=== PATIENT | female | born 1950 | race American Indian/Alaskan Native ===

== ENCOUNTER 2017-02-02 18:19 | Emergency (ER) | payer MEDICARE ==
[2017-02-02] MEDS ORDERED: TYLENOL PO ONE (23:34)
--- NOTE | 2017-02-02 23:41 | Emergency Department Report ---
ED Lower Extremity HPI - General Chief Complaint: Extremity Injury, Lower Stated Complaint: FOOT BROKEN Time Seen by Provider: 02/02/17 23:34 Source: patient Mode of arrival: Ambulatory Limitations: No Limitations - History of Present Illness Initial Comments: This is a 66-year-old female nontoxic, well nourished in appearance, no acute signs of distress presents to the ED with c/o of foot and ankle pain x2 days. Patient stated she was diagnosed with foot/ankle fracture by orthopedic and has been with a post op ortho shoe and rahat wrap to the region. Patient denies getting a cast or splint. Patient stated that orthopedic doctor stated fracture is healing 90%. Patient stated has been talking a lot for the holidays and now developed pain and swelling to the region. Patient denies any trauma. Denies any calf pain or tenderness. Denies any joint redness. Patient denies any numbness, tingling, fever, chills, nausea, vomiting, chest pain and shortness breath. Patient denies joint redness. He stated there is right foot swelling. Denies abnormal sensation. Denies decreased range of motion. She has pain while walking. Patient stated allergies to lisinopril. PMH includes arthritis, DM, and HTN. MD Complaint: ankle injury, foot injury -: days(s) (2) Injury: Ankle: Left, Foot: Left Place: home Severity: mild Severity scale (0 -10): 8 Improves With: nothing Worsens With: nothing Context: walking Associated Symptoms: swelling, able to partially bear weight, ambulatory. denies: snap/pop sensation, numbness, tingling, unable to bear weight - Related Data Previous Rx's Medication Instructions Recorded Last Taken Type Acetaminophen [Tylenol Arthritis] 650 mg PO Q8H PRN #30 tablet.er 02/02/17 Unknown Rx Allergies Allergy/AdvReac Type Severity Reaction Status Date / Time lisinopril Allergy Shortness Verified 02/02/17 18:33 of Breath ED Review of Systems ROS: Stated complaint: FOOT BROKEN Other details as noted in HPI Constitutional: denies: chills, fever Eyes: denies: eye pain, eye discharge, vision change ENT: denies: ear pain, throat pain Respiratory: denies: cough, shortness of breath, wheezing Cardiovascular: denies: chest pain, palpitations Endocrine: no symptoms reported Gastrointestinal: denies: abdominal pain, nausea, diarrhea Genitourinary: denies: urgency, dysuria, discharge Musculoskeletal: denies: back pain, joint swelling, arthralgia Skin: denies: rash, lesions Neurological: denies: headache, weakness, paresthesias Psychiatric: denies: anxiety, depression Hematological/Lymphatic: denies: easy bleeding, easy bruising ED Past Medical Hx - Past Medical History Previous Medical History?: Yes Hx Hypertension: Yes Hx Diabetes: Yes Hx Arthritis: Yes Additional medical history: Irregular HR - Surgical History Past Surgical History?: No - Social History Smoking Status: Never Smoker Substance Use Type: Prescribed - Medications Home Medications: Home Medications Medication Instructions Recorded Confirmed Last Taken Type Acetaminophen [Tylenol Arthritis] 650 mg PO Q8H PRN #30 tablet.er 02/02/17 Unknown Rx ED Physical Exam - General Limitations: No Limitations General appearance: alert, in no apparent distress - Head Head exam: Present: atraumatic, normocephalic, normal inspection - Eye Eye exam: Present: normal appearance, PERRL, EOMI. Absent: scleral icterus, conjunctival injection, nystagmus, periorbital swelling, periorbital tenderness Pupils: Present: normal accommodation - ENT ENT exam: Present: normal exam, normal orophraynx, mucous membranes moist, TM's normal bilaterally, normal external ear exam - Neck Neck exam: Present: normal inspection, full ROM. Absent: tenderness, meningismus, lymphadenopathy, thyromegaly - Respiratory Respiratory exam: Present: normal lung sounds bilaterally. Absent: respiratory distress, wheezes, rales, rhonchi, stridor, chest wall tenderness, accessory muscle use, decreased breath sounds, prolonged expiratory - Cardiovascular Cardiovascular Exam: Present: regular rate, normal rhythm, normal heart sounds. Absent: bradycardia, tachycardia, irregular rhythm, systolic murmur, diastolic murmur, rubs, gallop - GI/Abdominal GI/Abdominal exam: Present: soft, normal bowel sounds. Absent: distended, tenderness, guarding, rebound, rigid, diminished bowel sounds - Rectal Rectal exam: Present: deferred - Extremities Exam Extremities exam: Present: normal inspection, full ROM, tenderness, normal capillary refill. Absent: pedal edema, joint swelling, calf tenderness - Expanded Lower Extremity Exam Left Hip exam: Present: normal inspection, full ROM Upper Leg exam: Present: normal inspection, full ROM Knee exam: Present: normal inspection, full ROM Lower Leg exam: Present: normal inspection, full ROM. Absent: Celso's sign Ankle exam: Present: normal inspection, full ROM, tenderness, swelling. Absent : abrasion, laceration, ecchymosis, deformity, crepidus, dislocation, erythema, anterior draw sign Foot/Toe exam: Present: normal inspection, full ROM, tenderness, swelling. Absent: abrasion, laceration, ecchymosis, deformity, crepidus, dislocation, erythema, amputation, puncture wound, foreign body, calcaneal tenderness, tenderness at base of 5th metatarsal, nail avulsion, subungual hematoma Neuro vascular tendon exam: Present: no vascular compromise. Absent: pulse deficit, abnormal cap refill, motor deficit, sensory deficit, tendon deficit, extremity cold to touch, pallor, abnormal 2-point discrimination, decreased fine /light touch, foot drop, peroneal nerve deficit, significant pain with passive ROM of distal joint Gait: Positive: observed and limited by pain - Back Exam Back exam: Present: normal inspection, full ROM. Absent: tenderness, CVA tenderness (R), CVA tenderness (L), muscle spasm, paraspinal tenderness, vertebral tenderness, rash noted - Neurological Exam Neurological exam: Present: alert, oriented X3, CN II-XII intact, normal gait, reflexes normal - Psychiatric Psychiatric exam: Present: normal affect, normal mood - Skin Skin exam: Present: warm, dry, intact, normal color. Absent: rash ED Course Vital Signs 02/02/17 18:25 Temperature 97.6 F Pulse Rate 62 Respiratory 18 Rate Blood Pressure 129/86 O2 Sat by Pulse 96 Oximetry - Reevaluation(s) Reevaluation #1: 02/02/17 23:48 Patient is speaking in full sentences with no signs of distress noted. Reevaluation #2: 02/03/17 02:30 Post-splint assessment; there is neurovascular intact with normal capillary refill less than 2 seconds. Patient has normal sensation and is able to move toes. ED Lower Extremity MDM - Medical Decision Making This is a 59-year-old male that presents with left old 5th metatarsal fracture. He is stable and was examined by me. Patient received Motrin in the ED for pain. X-ray has been obtained and per the radiologist with healing fifth metatarsal fracture of the left ankle/foot but there is swelling. Patient notified of x-ray results were noted by the patient. Posterior left foot sprain and has been performed. Patient was instructed not to bear weight. Patient does have a walker. Post-splint assessment; there is neurovascular intact with normal capillary refill less than 2 seconds. Patient has normal sensation and is able to move toes. Patient received ice the extremity. Patient instructed to rice therapy. Patient be treated with Tylenol. Patient was instructed to rice therapy. Patient currently has a walker. Patient was instructed Follow-up with a orthopedic doctor in 3-5 days or if symptoms worsen and continue return to emergency room as soon as possible. At time time of discharge, the patient does not seem toxic or ill in appearance. No acute signs of distress noted. Patient agrees to discharge treatment plan of care. No further questions noted by the patient. Critical care attestation.: If time is entered above; I have spent that time in minutes in the direct care of this critically ill patient, excluding procedure time. ED Disposition Clinical Impression: Fracture of 5th metatarsal Qualifiers: Encounter type: initial encounter Fracture type: closed Fracture alignment: nondisplaced Laterality: left Qualified Code(s): S92.355A - Nondisplaced fracture of fifth metatarsal bone, left foot, initial encounter for closed fracture Disposition: DC-01 TO HOME OR SELFCARE Is pt being admited?: No Does the pt Need Aspirin: No Condition: Stable Instructions: Splint Care (ED), RICE Therapy (ED) Additional Instructions: Follow-up with a orthopedic doctor in 3-5 days or if symptoms worsen and continue return to emergency room as soon as possible. Rest, elevate, and ice extremity Prescriptions: Acetaminophen [Tylenol Arthritis] 650 mg PO Q8H PRN #30 tablet.er PRN Reason: Pain Referrals: ETHAN AGEE [Other] - 3-5 Days KRISTIAN ANDERSON MD [Staff Physician] - 3-5 Days [facility] [Outside] - 3-5 Days [facility] [Outside] - 3-5 Days Forms: Work/School Release Form(ED)
--- NOTE | 2017-02-03 01:30 | XRay Report ---
FINAL REPORT PROCEDURE: XR ANKLE 3+V LT TECHNIQUE: LEFT ankle radiographs, AP, lateral, and oblique views. CPT 23624 HISTORY: ankle pain COMPARISON: No prior studies are available for comparison. FINDINGS: Fracture (s) and/or Dislocation(s): There is a healing fracture of the 5th metatarsal bone.. Alignment: Normal. Joint space(s): Normal. Soft tissues: Normal. Bone mineralization: Normal. Foreign bodies: None. Calcaneal spurring: There are calcaneal spurs.. IMPRESSION: There is a healing fracture of the 5th metatarsal bone. There is no soft tissue swelling. There are calcaneal spurs..
--- NOTE | 2017-02-03 01:35 | XRay Report ---
FINAL REPORT PROCEDURE: XR FOOT 3+V LT TECHNIQUE: LEFT foot radiographs, AP, lateral, and oblique views. CPT 31752 HISTORY: foot pain COMPARISON: No prior studies are available for comparison. FINDINGS: Fracture (s) and/or Dislocation(s): There is a healing fracture of the 5th metatarsal bone.. Alignment: Normal . 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 Soft tissues: Normal . Bone mineralization: Normal . Foreign bodies: None . Calcaneal spurring: There is a small inferior calcaneal spur.. IMPRESSION: There is a healing fracture of the 5th metatarsal bone.. 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 There is a small inferior calcaneal spur.. .
[2017-02-03 03:05] VITALS: BP 142/91
== END 2017-02-03 03:06 | disposition home or self-care (01) ==
LOC: ED 18:19
DX: S92.355A Nondisplaced fracture of fifth metatarsal bone, left foot, initial encounter for closed fracture (principal); I10 Essential (primary) hypertension; E11.9 Type 2 diabetes mellitus without complications; M19.90 Unspecified osteoarthritis, unspecified site; Z88.8 Allergy status to other drugs, medicaments and biological substances; X58.XXXA Exposure to other specified factors, initial encounter; Y93.89 Activity, other specified; Y92.89 Other specified places as the place of occurrence of the external cause; Y99.8 Other external cause status

== ENCOUNTER 2018-03-06 16:23 | Inpatient (IN) | payer MEDICARE ==
--- NOTE | 2018-03-06 17:07 | Emergency Department Report ---
Chief Complaint: Dyspnea/Respdistress Stated Complaint: SOB Time Seen by Provider: 03/06/18 16:56 - HPI History of Present Illness: PT IS HAVING PROGRESSIVE SOB WENT TO PCP TODAY GOT HOME AND SHE GOT DIZZY AND MORE SOB CAME TO ER EXTENSIVE MED HX INCLUDES CHF CVA- RESIDUAL FACIAL DROP GLAUCOMA HTN HPLD GERD GOUT NEUROPATHY COUMADIN THERAPY HOME MEDS SPIRONLDACTOME ALLOPURINOL [place] EYE DROPS STATIN COLCHICINE PEPCID LASIX GABAPEN GLYBIZIDE IMDUR LOSARTAN MG K METFORMIN MONTELUKAST PROTONIX K TOPRAL D3 COUMADIN - ROS Review of Systems: SOB CP WITH ACTIVITY PROGRESSIVE - Exam Vital Signs: Vital Signs 03/06/18 16:33 Temperature 97.6 F Pulse Rate 72 Respiratory 20 Rate Blood Pressure 166/99 O2 Sat by Pulse 95 Oximetry Physical Exam: JVD NO LEG SWELLING APPRECIATED- ON LASIX 80 MG DAILY MSE screening note: Focused history and physical exam performed. Due to findings the following was ordered: 12 LEAD NAP BUT WITH AFIB CVR AND LAD DIFF THAN PREVIOUS IN SYSTEM PLAN EKG XRAY CHEST LABS TO MAIN ED FOR FURTHER EVAL GIVEN HER COMPLEX MEDICAL NEEDS ED Disposition for MSE Condition: Stable
[2018-03-06 17:43] LABS: Basophils # (Auto) 0.1 K/mm3 (0.0-0.1); Basophils % (Auto) 1.1 % (0.0-1.8); Eosinophils # (Auto) 0.1 K/mm3 (0.0-0.4); Eosinophils % (Auto) 2.4 % (0.0-4.3); Hematocrit 37.6 % (30.3-42.9); Hemoglobin 12.4 gm/dl (10.1-14.3); Lymphocytes # (Auto) 1.4 K/mm3 (1.2-5.4); Lymphocytes % (Auto) 25.4 % (13.4-35.0); Mean Corpuscular HGB Conc 33 % (30-34); Mean Corpuscular Volume 76 fl (79-97); Monocytes # (Auto) 0.6 K/mm3 (0.0-0.8); Monocytes % (Auto) 10.3 % (0.0-7.3); Platelet Count 277 K/mm3 (140-440); Red Blood Count 4.92 M/mm3 (3.65-5.03); Red Cell Distribution Width 17.9 % (13.2-15.2)
[2018-03-06 17:53] LABS: BUN/Creatinine Ratio 20; Blood Urea Nitrogen 28 mg/dL (7-17); Calcium 9.1 mg/dL (8.4-10.2); Hemolysis Index 96
[2018-03-06 17:54] LABS: INR 4.86 (0.87-1.13)
[2018-03-06 17:57] LABS: Alanine Aminotransferase 34 units/L (7-56)
[2018-03-06] MEDS ORDERED: BABY ASPIRIN PO ONE (18:07)
[2018-03-06] MEDS ORDERED: LASIX IV ONE (18:07)
[2018-03-06] MEDS ORDERED: DUONEB *Not for PRN Use IH ONE (18:07)
--- NOTE | 2018-03-06 18:20 | Emergency Department Report ---
HPI - General Chief Complaint: Dyspnea/Respdistress Time Seen by Provider: 03/06/18 16:56 - HPI HPI: 67-year-old female presents to the emergency department from her primary care physician's office, Dr. Dow, with the complaint of shor tness of breath, chest tightness, nausea, vomiting that has been going on over the past week. Patient says that she has not gotten much sleep because she will wake up with the shortness of breath. It also worsens with exertion. The chest tightness is generalized. She has a past medical history of arthritis, diabetes, hypertension, atrial fibrillation, CHF, glaucoma. The patient is on Coumadin for her atrial fibrillation. She is not oxygen dependent at home. Her heel builder machine is Dr. Jeff Addison. No recent travel or sick contacts at home. ED Past Medical Hx - Past Medical History Hx Hypertension: Yes Hx Diabetes: Yes Hx Arthritis: Yes Additional medical history: afib - Surgical History Past Surgical History?: No - Social History Smoking Status: Never Smoker Substance Use Type: None - Medications Home Medications: Home Medications Medication Instructions Recorded Confirmed Last Taken Type [place]-3/Dha/Epa/Fish Oil [Fish Oil 1,000 mg PO DAILY 08/09/17 08/09/17 08/09/17 History 1,000 mg Softgel] Warfarin [Coumadin] 5 mg PO HS 08/09/17 08/09/17 08/08/17 History glipiZIDE [Glipizide] 10 mg PO HS 08/09/17 08/09/17 08/08/17 History Alphagan P 0.1% 1 drop OU BID 08/10/17 08/10/17 08/09/17 History AtorvaSTATin 40 mg PO DAILY 08/10/17 08/10/17 08/09/17 History Carvedilol [Coreg] 6.25 mg PO BID 08/10/17 08/10/17 08/09/17 History Famotidine 20 mg PO DAILY 08/10/17 08/10/17 08/09/17 History Glipizide 10 mg PO DAILY 08/10/17 08/10/17 08/09/17 History Isosorbide Mononitrate 30 mg PO DAILY 08/10/17 08/10/17 08/09/17 History Latanoprost 0.005% 1 drops OU HS 08/10/17 08/10/17 08/09/17 History Magnesium Oxide 400 mg PO DAILY 08/10/17 08/10/17 08/09/17 History Montelukast 10 mg PO DAILY 08/10/17 08/10/17 08/09/17 History AtorvaSTATin [Lipitor] 40 mg PO QHS #30 tablet 08/16/17 Unknown Rx Furosemide [Lasix] 80 mg PO DAILY #30 tablet 08/16/17 Unknown Rx Gabapentin [Neurontin] 100 mg PO HS #30 capsule 08/16/17 Unknown Rx ISOSORBIDE MONOnitrate [Imdur ER] 30 mg PO DAILY #30 tablet 08/16/17 Unknown Rx Latanoprost 0.005% 1 drops OU HS bottle 08/16/17 Unknown Rx Losartan [Cozaar] 100 mg PO QDAY #30 tablet 08/16/17 Unknown Rx Metformin HCl 1,000 mg PO HS #30 tablet 08/16/17 Unknown Rx Metoprolol [Lopressor TAB] 50 mg PO BID #60 tablet 08/16/17 Unknown Rx Montelukast [Singulair] 10 mg PO QDAY #30 tablet 08/16/17 Unknown Rx Pantoprazole [Protonix TAB] 40 mg PO QDAY #30 tablet 08/16/17 Unknown Rx Potassium Chloride [K-Dur] 20 meq PO Q12H #30 tablet 08/16/17 Unknown Rx Warfarin [Coumadin] 5 mg PO DAILY@1700 #30 tablet 08/16/17 Unknown Rx glipiZIDE [Glucotrol] 10 mg PO QDDIAB #60 tablet 08/16/17 Unknown Rx ED Review of Systems ROS: Stated complaint: SOB Other details as noted in HPI Comment: All other systems reviewed and negative Constitutional: denies: chills, fever Eyes: denies: eye pain, vision change ENT: denies: ear pain, throat pain Respiratory: shortness of breath, SOB with exertion Cardiovascular: chest pain. denies: palpitations Gastrointestinal: nausea, vomiting. denies: abdominal pain Genitourinary: denies: dysuria, discharge Musculoskeletal: denies: back pain, arthralgia Skin: denies: rash, lesions Neurological: denies: headache, weakness Physical Exam - Physical Exam Vital Signs: Vital Signs 03/06/18 16:33 Temperature 97.6 F Pulse Rate 72 Respiratory 20 Rate Blood Pressure 166/99 O2 Sat by Pulse 95 Oximetry Physical Exam: GENERAL: The patient is well-developed well-nourished. HEENT: Normocephalic. Atraumatic. Patient has moist mucous membranes. EYES: Extraocular motions are intact. Pupils are equal and reactive to light bilaterally. NECK: Supple. Trachea is midline. CHEST/LUNGS: Mild coarse breath sounds. No tachypnea at rest. There is no respiratory distress noted. HEART/CARDIOVASCULAR: Regular rate. There is no tachycardia. There is no obvious murmur. ABDOMEN: Abdomen is soft, nontender. Patient has normal bowel sounds. There is no abdominal distention. SKIN: Skin is warm and dry. NEURO: The patient is awake, alert, and oriented. The patient is cooperative. The patient has no focal neurologic deficits. The patient has normal speech. MUSCULOSKELETAL: There is no tenderness or deformity. There is no limitation range of motion. There is no evidence of acute injury. ED Course Vital Signs 03/06/18 16:33 Temperature 97.6 F Pulse Rate 72 Respiratory 20 Rate Blood Pressure 166/99 O2 Sat by Pulse 95 Oximetry ED Medical Decision Making - Lab Data Result diagrams: 03/06/18 17:16 03/06/18 17:16 - EKG Data -: EKG Interpreted by Me - EKG Data When compared to previous EKG there are: no significant change Interpretation: unchanged when compared t (08/17/17), other (atrial fibrillation, left axis deviation, LVH, Q waves to the anterior and inferior leads) - Radiology Data Radiology results: image reviewed interpreted by me: Chest x-ray shows some mild cardiomegaly and mild pulmonary vascular congestion. No pneumothorax or obvious pneumonia. - Medical Decision Making Patient presents with a one-week history of shortness of breath, nausea and vomiting, chest pain. She has a history of atrial fibrillation and remains in A. fib. She is anticoagulated on Coumadin but is supratherapeutic at this time with an INR of 4.5. She has some acute on chronic renal insufficiency with a GFR of 45. Chest x-ray did not show any obvious pneumonia, pleural effusions, or focal consolidation. Patient was given a breathing treatment and her dose of Lasix, which she has not had today. She has a BNP of almost 14,000. Patient will be admitted to the hospital for further evaluation and treatment and was accepted for admission by the hospitalist, Dr. Farr. - Differential Diagnosis CHF, AR, COPD, Pneumonia Critical Care Time: No Critical care attestation.: If time is entered above; I have spent that time in minutes in the direct care of this critically ill patient, excluding procedure time. ED Disposition Clinical Impression: Supratherapeutic INR, Acute on chronic renal insufficiency, Chronic atrial fibrillation Acute exacerbation of CHF (congestive heart failure) Qualifiers: Heart failure type: unspecified Qualified Code(s): I50.9 - Heart failure, unspecified Hypertension Qualifiers: Hypertension type: essential hypertension Qualified Code(s): I10 - Essential (primary) hypertension Disposition: OP ADMIT IP TO THIS HOSP Is pt being admited?: Yes Condition: Fair Instructions: Hypertension (ED) Referrals: JUN DIAZ MD [Primary Care Provider] - 3-5 Days Time of Disposition: 19:36
--- NOTE | 2018-03-06 18:22 | XRay Report ---
FINAL REPORT EXAM: XR CHEST ROUTINE 2V HISTORY: SOB TECHNIQUE: Two views of the chest Comparison: 08/09/2017, CT chest 08/15/2017 FINDINGS: Enlarged cardiac silhouette as previously. Prominent bilateral hilar markings. Previous CT demonstrated multiple borderline mediastinal lymph no iain and prominent azygos. No pleural effusion. No discrete infiltrate. IMPRESSION: Cardiomegaly without failure. No discrete hilar adenopathy but mild nodularity of the yvonne. Multiple small mediastinal lymph nodes or possible mediastinal varicosities noted on the previous CT chest. Consider CTA chest.
[2018-03-06] MEDS ORDERED: APRESOLINE IV ONE (19:35)
[2018-03-06] MEDS ORDERED: APRESOLINE ONE (19:35)
[2018-03-06 20:43] LABS: Bilirubin,Urine NEG (Negative); Blood,Urine NEG (Negative); Color,Urine Yellow (Yellow); Urobilinogen,Urine < 2.0 mg/dL (<2.0)
--- NOTE | 2018-03-06 21:56 | History and Physical Report ---
History of Present Illness Date of examination: 03/06/18 Date of admission: 03/06/18 18:42 Chief complaint: Increasing SOB for 1 week History of present illness: 67-year-old female presents to the emergency department with increasing shortness of breath and chest tightness, for the past week. Unable to lie flat and sleep.SOB on minimal exertion.No PND attacks.No fever.No history of CHF.Patient has symptoms c/w Class IV NYHA .Exercise is a exacerbating factor and rest is a relieving factor.No cough or sputum. Past Medical History Hypertension: Yes Diabetes: Yes Arthritis: Yes Additional medical history: afib -Surgical History Past Surgical History?: No - Social History Smoking Status: Never Smoker Substance Use Type: None Review of Systems ROS: Stated complaint: SOB Other details as noted in HPI Comment: All other systems reviewed and negative Constitutional: denies: chills, fever Eyes: denies: eye pain, vision change ENT: denies: ear pain, throat pain Respiratory: shortness of breath, SOB with exertion Cardiovascular: chest pain. denies: palpitations Gastrointestinal: nausea, vomiting. denies: abdominal pain Genitourinary: denies: dysuria, discharge Musculoskeletal: denies: back pain, arthralgia Skin: denies: rash, lesions Neurological: denies: headache, weakness Medications and Allergies Allergies Allergy/AdvReac Type Severity Reaction Status Date / Time lisinopril Allergy Shortness Verified 03/06/18 16:33 of Breath Home Medications Medication Instructions Recorded Confirmed Last Taken Type [place]-3/Dha/Epa/Fish Oil [Fish Oil 1,000 mg PO DAILY 08/09/17 08/09/17 08/09/17 History 1,000 mg Softgel] Warfarin [Coumadin] 5 mg PO HS 08/09/17 08/09/17 08/08/17 History glipiZIDE [Glipizide] 10 mg PO HS 08/09/17 08/09/17 08/08/17 History Alphagan P 0.1% 1 drop OU BID 08/10/17 08/10/17 08/09/17 History AtorvaSTATin 40 mg PO DAILY 08/10/17 08/10/17 08/09/17 History Carvedilol [Coreg] 6.25 mg PO BID 08/10/17 08/10/17 08/09/17 History Famotidine 20 mg PO DAILY 08/10/17 08/10/17 08/09/17 History Glipizide 10 mg PO DAILY 08/10/17 08/10/17 08/09/17 History Isosorbide Mononitrate 30 mg PO DAILY 08/10/17 08/10/17 08/09/17 History Latanoprost 0.005% 1 drops OU HS 08/10/17 08/10/17 08/09/17 History Magnesium Oxide 400 mg PO DAILY 08/10/17 08/10/17 08/09/17 History Montelukast 10 mg PO DAILY 08/10/17 08/10/17 08/09/17 History AtorvaSTATin [Lipitor] 40 mg PO QHS #30 tablet 08/16/17 Unknown Rx Furosemide [Lasix] 80 mg PO DAILY #30 tablet 08/16/17 Unknown Rx Gabapentin [Neurontin] 100 mg PO HS #30 capsule 08/16/17 Unknown Rx ISOSORBIDE MONOnitrate [Imdur ER] 30 mg PO DAILY #30 tablet 08/16/17 Unknown Rx Latanoprost 0.005% 1 drops OU HS bottle 08/16/17 Unknown Rx Losartan [Cozaar] 100 mg PO QDAY #30 tablet 08/16/17 Unknown Rx Metformin HCl 1,000 mg PO HS #30 tablet 08/16/17 Unknown Rx Metoprolol [Lopressor TAB] 50 mg PO BID #60 tablet 08/16/17 Unknown Rx Montelukast [Singulair] 10 mg PO QDAY #30 tablet 08/16/17 Unknown Rx Pantoprazole [Protonix TAB] 40 mg PO QDAY #30 tablet 08/16/17 Unknown Rx Potassium Chloride [K-Dur] 20 meq PO Q12H #30 tablet 08/16/17 Unknown Rx Warfarin [Coumadin] 5 mg PO DAILY@1700 #30 tablet 08/16/17 Unknown Rx glipiZIDE [Glucotrol] 10 mg PO QDDIAB #60 tablet 08/16/17 Unknown Rx Exam - Constitutional Vitals: Temp Pulse Resp BP Pulse Ox 98.5 F 75 16 165/85 96 03/06/18 21:00 03/06/18 21:00 03/06/18 21:00 03/06/18 21:00 03/06/18 21:00 General appearance: Present: mild distress - EENT Eyes: Present: PERRL ENT: hearing intact, clear oral mucosa - Neck Neck: Present: supple, normal ROM - Respiratory Respiratory effort: normal Respiratory: bilateral: CTA, rales - Cardiovascular Heart rate: 68 Heart Sounds: Present: S1 & S2. Absent: rub, click - Extremities Extremities: no ischemia, pulses intact, pulses symmetrical, No edema Peripheral Pulses: within normal limits - Abdominal General gastrointestinal: Present: soft, non-tender, non-distended, normal bowel sounds Female genitourinary: Present: normal - Rectal Rectal Exam: deferred - Integumentary Integumentary: Present: clear, warm, dry - Musculoskeletal Musculoskeletal: gait normal, strength equal bilaterally - Psychiatric Psychiatric: appropriate mood/affect, intact judgment & insight - Neurologic Neurologic: CNII-XII intact, moves all extremities - Allied Health Allied health notes reviewed: nursing, case management Results - Labs CBC & Chem 7: 03/06/18 17:16 03/06/18 17:16 Labs: Laboratory Last Values WBC 5.7 K/mm3 (4.5-11.0) 03/06/18 17:16 RBC 4.92 M/mm3 (3.65-5.03) 03/06/18 17:16 Hgb 12.4 gm/dl (10.1-14.3) 03/06/18 17:16 Hct 37.6 % (30.3-42.9) 03/06/18 17:16 MCV 76 fl (79-97) L 03/06/18 17:16 MCH 25 pg (28-32) L 03/06/18 17:16 MCHC 33 % (30-34) 03/06/18 17:16 RDW 17.9 % (13.2-15.2) H 03/06/18 17:16 Plt Count 277 K/mm3 (140-440) 03/06/18 17:16 Lymph % (Auto) 25.4 % (13.4-35.0) 03/06/18 17:16 [place] % (Auto) 10.3 % (0.0-7.3) H 03/06/18 17:16 Eos % (Auto) 2.4 % (0.0-4.3) 03/06/18 17:16 Baso % (Auto) 1.1 % (0.0-1.8) 03/06/18 17:16 Lymph # 1.4 K/mm3 (1.2-5.4) 03/06/18 17:16 [place] # 0.6 K/mm3 (0.0-0.8) 03/06/18 17:16 Eos # 0.1 K/mm3 (0.0-0.4) 03/06/18 17:16 Baso # 0.1 K/mm3 (0.0-0.1) 03/06/18 17:16 Seg Neutrophils % 60.8 % (40.0-70.0) 03/06/18 17:16 Seg Neutrophils # 3.5 K/mm3 (1.8-7.7) 03/06/18 17:16 PT 45.5 Sec. (12.2-14.9) H 03/06/18 17:16 INR 4.86 (0.87-1.13) H 03/06/18 17:16 Sodium 139 mmol/L (137-145) 03/06/18 17:16 Potassium 3.9 mmol/L (3.6-5.0) 03/06/18 17:16 Chloride 100.8 mmol/L (98-107) 03/06/18 17:16 Carbon Dioxide 23 mmol/L (22-30) 03/06/18 17:16 Anion Gap 19 mmol/L 03/06/18 17:16 BUN 28 mg/dL (7-17) H 03/06/18 17:16 Creatinine 1.4 mg/dL (0.7-1.2) H 03/06/18 17:16 Estimated GFR 45 ml/min 03/06/18 17:16 BUN/Creatinine Ratio 20 % 03/06/18 17:16 Glucose 183 mg/dL (65-100) H 03/06/18 17:16 POC Glucose 178 (70-105) H 03/06/18 20:58 Calcium 9.1 mg/dL (8.4-10.2) 03/06/18 17:16 Magnesium 1.70 mg/dL (1.7-2.3) 03/06/18 17:16 Total Bilirubin 0.90 mg/dL (0.1-1.2) 03/06/18 17:16 AST 32 units/L (5-40) 03/06/18 17:16 ALT 34 units/L (7-56) 03/06/18 17:16 Alkaline Phosphatase 143 units/L (35-129) H 03/06/18 17:16 Troponin T < 0.010 ng/mL (0.00-0.029) 03/06/18 17:16 NT-Pro-B Natriuret Pep 29601 pg/mL (0-900) H 03/06/18 17:16 Total Protein 7.7 g/dL (6.3-8.2) 03/06/18 17:16 Albumin 4.0 g/dL (3.9-5) 03/06/18 17:16 Albumin/Globulin Ratio 1.1 % 03/06/18 17:16 Urine Color Yellow (Yellow) 03/06/18 20:25 Urine Turbidity Clear (Clear) 03/06/18 20:25 Urine pH 6.0 (5.0-7.0) 03/06/18 20:25 Ur Specific [place] 1.005 (1.003-1.030) 03/06/18 20:25 Urine Protein 100 mg/dl mg/dL (Negative) 03/06/18 20:25 Urine Glucose (UA) Neg mg/dL (Negative) 03/06/18 20:25 Urine Ketones Neg mg/dL (Negative) 03/06/18 20:25 Urine Blood Neg (Negative) 03/06/18 20:25 Urine Nitrite Neg (Negative) 03/06/18 20:25 Urine Bilirubin Neg (Negative) 03/06/18 20:25 Urine Urobilinogen < 2.0 mg/dL (<2.0) 03/06/18 20:25 Ur Leukocyte Esterase Neg (Negative) 03/06/18 20:25 Urine WBC (Auto) 1.0 /HPF (0.0-6.0) 03/06/18 20:25 Urine RBC (Auto) 4.0 /HPF (0.0-6.0) 03/06/18 20:25 U Epithel Cells (Auto) 1.0 /HPF (0-13.0) 03/06/18 20:25 - Imaging and Cardiology EKG: report reviewed (A fib 68/min LVH ) Imaging and Cardiology: IMPRESSION: Cardiomegaly without failure. No discrete hilar adenopathy but mild nodularity of the yvonne. Multiple small mediastinal lymph nodes or possible mediastinal varicosities noted on the previous CT chest. Consider CTA chest. Assessment and Plan Advance Directives: Yes (Full code) VTE prophylaxis?: Chemical Plan of care discussed with patient/family: Yes - Patient Problems (1) Acute exacerbation of CHF (congestive heart failure) Current Visit: Yes Status: Acute Qualifiers: Heart failure type: unspecified Qualified Code(s): I50.9 - Heart failure, unspecified Plan to address problem: IV Lasix initiated ECHO ordered for EF Cardiology consult (2) Hypertensive emergency Current Visit: Yes Status: Acute Plan to address problem: Patient non compliant with meds Home antihypertensives restarted Counselled about non compliance Hydralazine 10 mg IV q 3 PRN for DBP more than 100 (3) T2DM (type 2 diabetes mellitus) Current Visit: Yes Status: Chronic Qualifiers: Diabetes mellitus prison insulin use: without prison use Plan to address problem: COnt oral hypoglycemics and coverage Check A1c (4) Chronic a-fib Current Visit: Yes Status: Chronic Plan to address problem: On Coumadin Adjust INR which is high Pk consult (5) HLD (hyperlipidemia) Current Visit: Yes Status: Chronic Qualifiers: Hyperlipidemia type: mixed hyperlipidemia Qualified Code(s): E78.2 - Mixed hyperlipidemia Plan to address problem: Cont statins (6) GERD (gastroesophageal reflux disease) Current Visit: Yes Status: Chronic Qualifiers: Esophagitis presence: without esophagitis Qualified Code(s): K21.9 - Gastro-esophageal reflux disease without esophagitis Plan to address problem: On PPI's (7) Glaucoma Current Visit: Yes Status: Chronic Qualifiers: Glaucoma type: unspecified Plan to address problem: Cont Latanoprost (8) DVT prophylaxis Current Visit: Yes Status: Acute Plan to address problem: On Lovenox and GI prophylaxis
[2018-03-06] MEDS ORDERED: SODIUM CHLORIDE FLUSH SYRINGE 10 ML IV PRN (21:57)
[2018-03-06] MEDS ORDERED: D50W (25GM) Syringe IV PRN (21:57)
[2018-03-06] MEDS ORDERED: TYLENOL PO PRN (21:57)
[2018-03-06] MEDS ORDERED: ZOFRAN IV PRN (21:57)
[2018-03-06] MEDS ORDERED: PEPCID PO SCH (22:00)
[2018-03-06] MEDS: SODIUM CHLORIDE FLUSH SYRINGE 10 ML IV SCH (23:47)
[2018-03-06] MEDS: K-DUR PO SCH (23:47)
[2018-03-07] MEDS: NEURONTIN PO SCH ×2 (00:46→22:55)
[2018-03-07] MEDS: LASIX IV SCH ×2 (05:59→18:13)
[2018-03-07 06:17] LABS: Basophils # (Auto) 0.1 K/mm3 (0.0-0.1); Basophils % (Auto) 1.1 % (0.0-1.8); Eosinophils # (Auto) 0.1 K/mm3 (0.0-0.4); Eosinophils % (Auto) 1.7 % (0.0-4.3); Hematocrit 36.4 % (30.3-42.9); Hemoglobin 11.9 gm/dl (10.1-14.3); Lymphocytes # (Auto) 1.8 K/mm3 (1.2-5.4); Lymphocytes % (Auto) 34.8 % (13.4-35.0); Mean Corpuscular HGB Conc 33 % (30-34); Mean Corpuscular Volume 76 fl (79-97); Monocytes # (Auto) 0.7 K/mm3 (0.0-0.8); Monocytes % (Auto) 12.8 % (0.0-7.3); Platelet Count 271 K/mm3 (140-440); Red Blood Count 4.76 M/mm3 (3.65-5.03); Red Cell Distribution Width 17.7 % (13.2-15.2)
[2018-03-07 06:36] LABS: Albumin 3.8 g/dL (3.9-5); Calcium 8.9 mg/dL (8.4-10.2)
[2018-03-07] MEDS: DUONEB *Not for PRN Use IH SCH ×4 (07:56→21:19)
[2018-03-07] MEDS: HumaLOG SUB-Q SCH ×4 (08:57→22:55)
[2018-03-07] MEDS ORDERED: PROTONIX PO SCH (10:00)
[2018-03-07] MEDS ORDERED: NON-FORMULARY (Famotidine 20 MG) PO SCH (10:00)
[2018-03-07] MEDS ORDERED: LOPRESSOR PO SCH (10:00)
[2018-03-07] MEDS ORDERED: LEXISCAN IV ONE (10:31)
[2018-03-07] MEDS: PEPCID PO SCH (12:16)
[2018-03-07] MEDS: COZAAR PO SCH (12:16)
[2018-03-07] MEDS: IMDUR PO SCH (12:16)
[2018-03-07] MEDS: MAG-OX PO SCH (12:16)
[2018-03-07] MEDS: K-DUR PO SCH (12:16)
[2018-03-07] MEDS: GLUCOTROL PO SCH (12:16)
[2018-03-07] MEDS: COREG PO SCH ×2 (12:16→22:55)
[2018-03-07] MEDS: SODIUM CHLORIDE FLUSH SYRINGE 10 ML IV SCH ×2 (12:17→22:55)
--- NOTE | 2018-03-07 12:26 | Progress Note ---
Assessment and Plan Assessment and plan: Patient 67-year-old woman presents with orthopnea, PND and shortness of breath. The patient has been diuresed, continued diuresis She was seen by cardiology, who agreed with the plan CHF EF 15%, meds been optimized by cardiology Atrial fibrillation on warfarin; continue rate control medications, -INR is currently 4, due to warfarin, hold warfarin for now -Blood pressure medications were optimized -creat is at her baseline, avoid nephrotoxic agents - K was repleted Diagnoses Acute on chronic systolic CHF Atrial fibrillation with hypercoagulable state Coagulopathy due to warfarin Hypertension type 2 diabetes GERD Glaucoma Hypertensive urgency Hypokalemia CKD stage 3 History Interval history: Review of systems Constitutional: No fevers, no malaise, no joint pains CVS: Orthopnea is improving GI: No abdominal pain, no diarrhea, no vomiting, no constipation Respiratory: No shortness of breath, no wheezing, no coughing Hospitalist Physical - Physical exam Narrative exam: General.: Appears well, no distress, nontoxic HEENT: Moist mucous membranes, extraocular muscles intact, no lymphadenopathy Neck: supple Cardiac: S1-S2 heard Lungs: crackles in bases Abdomen: soft , nontender, nondistended, bowel sounds positive Extremities: no edema clubbing or cyanosis Skin: no rash or lesions Neurologic: no gross focal deficits Psych: calm, and cooperative - Constitutional Vitals: Temp Pulse Resp BP Pulse Ox 97.7 F 89 18 200/108 98 03/07/18 03:57 03/07/18 10:47 03/07/18 08:06 03/07/18 10:47 03/07/18 09:13 General appearance: Present: mild distress Results - Labs CBC & Chem 7: 03/07/18 05:35 03/07/18 05:35 Labs: Laboratory Last Values WBC 5.1 K/mm3 (4.5-11.0) 03/07/18 05:35 RBC 4.76 M/mm3 (3.65-5.03) 03/07/18 05:35 Hgb 11.9 gm/dl (10.1-14.3) 03/07/18 05:35 Hct 36.4 % (30.3-42.9) 03/07/18 05:35 MCV 76 fl (79-97) L 03/07/18 05:35 MCH 25 pg (28-32) L 03/07/18 05:35 MCHC 33 % (30-34) 03/07/18 05:35 RDW 17.7 % (13.2-15.2) H 03/07/18 05:35 Plt Count 271 K/mm3 (140-440) 03/07/18 05:35 Lymph % (Auto) 34.8 % (13.4-35.0) 03/07/18 05:35 [place] % (Auto) 12.8 % (0.0-7.3) H 03/07/18 05:35 Eos % (Auto) 1.7 % (0.0-4.3) 03/07/18 05:35 Baso % (Auto) 1.1 % (0.0-1.8) 03/07/18 05:35 Lymph # 1.8 K/mm3 (1.2-5.4) 03/07/18 05:35 [place] # 0.7 K/mm3 (0.0-0.8) 03/07/18 05:35 Eos # 0.1 K/mm3 (0.0-0.4) 03/07/18 05:35 Baso # 0.1 K/mm3 (0.0-0.1) 03/07/18 05:35 Seg Neutrophils % 49.6 % (40.0-70.0) 03/07/18 05:35 Seg Neutrophils # 2.5 K/mm3 (1.8-7.7) 03/07/18 05:35 PT 45.5 Sec. (12.2-14.9) H 03/06/18 17:16 INR 4.86 (0.87-1.13) H 03/06/18 17:16 Sodium 144 mmol/L (137-145) 03/07/18 05:35 Potassium 3.4 mmol/L (3.6-5.0) L 03/07/18 05:35 Chloride 101.3 mmol/L (98-107) 03/07/18 05:35 Carbon Dioxide 26 mmol/L (22-30) 03/07/18 05:35 Anion Gap 20 mmol/L 03/07/18 05:35 BUN 25 mg/dL (7-17) H 03/07/18 05:35 Creatinine 1.3 mg/dL (0.7-1.2) H 03/07/18 05:35 Estimated GFR 49 ml/min 03/07/18 05:35 BUN/Creatinine Ratio 19 % 03/07/18 05:35 Glucose 132 mg/dL (65-100) H 03/07/18 05:35 POC Glucose 120 (70-105) H 03/07/18 05:47 Hemoglobin A1c 8.9 % (4-6) H 03/06/18 17:16 Calcium 8.9 mg/dL (8.4-10.2) 03/07/18 05:35 Magnesium 1.70 mg/dL (1.7-2.3) 03/06/18 17:16 Total Bilirubin 0.70 mg/dL (0.1-1.2) 03/07/18 05:35 AST 25 units/L (5-40) 03/07/18 05:35 ALT 30 units/L (7-56) 03/07/18 05:35 Alkaline Phosphatase 136 units/L (35-129) H 03/07/18 05:35 Troponin T < 0.010 ng/mL (0.00-0.029) 03/07/18 05:35 NT-Pro-B Natriuret Pep 78934 pg/mL (0-900) H 03/06/18 17:16 Total Protein 7.5 g/dL (6.3-8.2) 03/07/18 05:35 Albumin 3.8 g/dL (3.9-5) L 03/07/18 05:35 Albumin/Globulin Ratio 1.0 % 03/07/18 05:35 Urine Color Yellow (Yellow) 03/06/18 20:25 Urine Turbidity Clear (Clear) 03/06/18 20:25 Urine pH 6.0 (5.0-7.0) 03/06/18 20:25 Ur Specific [place] 1.005 (1.003-1.030) 03/06/18 20:25 Urine Protein 100 mg/dl mg/dL (Negative) 03/06/18 20:25 Urine Glucose (UA) Neg mg/dL (Negative) 03/06/18 20:25 Urine Ketones Neg mg/dL (Negative) 03/06/18 20:25 Urine Blood Neg (Negative) 03/06/18 20:25 Urine Nitrite Neg (Negative) 03/06/18 20:25 Urine Bilirubin Neg (Negative) 03/06/18 20:25 Urine Urobilinogen < 2.0 mg/dL (<2.0) 03/06/18 20:25 Ur Leukocyte Esterase Neg (Negative) 03/06/18 20:25 Urine WBC (Auto) 1.0 /HPF (0.0-6.0) 03/06/18 20:25 Urine RBC (Auto) 4.0 /HPF (0.0-6.0) 03/06/18 20:25 U Epithel Cells (Auto) 1.0 /HPF (0-13.0) 03/06/18 20:25
--- NOTE | 2018-03-07 12:40 | Consultation ---
History of Present Illness Consult date: 03/07/18 Consult reason: shortness of breath History of present illness: 67 year old female presenting with acute on chronic systolic heart failure. She follows with [facility] for her cardiac management Past History Past Medical History: diabetes, hypertension, other (Arthritis) Past Surgical History: No surgical history Social history: no significant social history Family history: no significant family history Medications and Allergies Allergies Allergy/AdvReac Type Severity Reaction Status Date / Time lisinopril Allergy Shortness Verified 03/06/18 16:33 of Breath Home Medications Medication Instructions Recorded Confirmed Last Taken Type [place]-3/Dha/Epa/Fish Oil [Fish Oil 1,000 mg PO DAILY 08/09/17 08/09/17 08/09/17 History 1,000 mg Softgel] Warfarin [Coumadin] 5 mg PO HS 08/09/17 08/09/17 08/08/17 History glipiZIDE [Glipizide] 10 mg PO HS 08/09/17 08/09/17 08/08/17 History Alphagan P 0.1% 1 drop OU BID 08/10/17 08/10/17 08/09/17 History AtorvaSTATin 40 mg PO DAILY 08/10/17 08/10/17 08/09/17 History Carvedilol [Coreg] 6.25 mg PO BID 08/10/17 08/10/17 08/09/17 History Famotidine 20 mg PO DAILY 08/10/17 08/10/17 08/09/17 History Glipizide 10 mg PO DAILY 08/10/17 08/10/17 08/09/17 History Isosorbide Mononitrate 30 mg PO DAILY 08/10/17 08/10/17 08/09/17 History Latanoprost 0.005% 1 drops OU HS 08/10/17 08/10/17 08/09/17 History Magnesium Oxide 400 mg PO DAILY 08/10/17 08/10/17 08/09/17 History Montelukast 10 mg PO DAILY 08/10/17 08/10/17 08/09/17 History AtorvaSTATin [Lipitor] 40 mg PO QHS #30 tablet 08/16/17 Unknown Rx Furosemide [Lasix] 80 mg PO DAILY #30 tablet 08/16/17 Unknown Rx Gabapentin [Neurontin] 100 mg PO HS #30 capsule 08/16/17 Unknown Rx ISOSORBIDE MONOnitrate [Imdur ER] 30 mg PO DAILY #30 tablet 08/16/17 Unknown Rx Latanoprost 0.005% 1 drops OU HS bottle 08/16/17 Unknown Rx Losartan [Cozaar] 100 mg PO QDAY #30 tablet 08/16/17 Unknown Rx Metformin HCl 1,000 mg PO HS #30 tablet 08/16/17 Unknown Rx Metoprolol [Lopressor TAB] 50 mg PO BID #60 tablet 08/16/17 Unknown Rx Montelukast [Singulair] 10 mg PO QDAY #30 tablet 08/16/17 Unknown Rx Pantoprazole [Protonix TAB] 40 mg PO QDAY #30 tablet 08/16/17 Unknown Rx Potassium Chloride [K-Dur] 20 meq PO Q12H #30 tablet 08/16/17 Unknown Rx Warfarin [Coumadin] 5 mg PO DAILY@1700 #30 tablet 08/16/17 Unknown Rx glipiZIDE [Glucotrol] 10 mg PO QDDIAB #60 tablet 08/16/17 Unknown Rx Active Meds: Active Medications Acetaminophen (Tylenol) 650 mg PO Q4H PRN PRN Reason: Pain MILD(1-3)/Fever >100.5/GARCIA Albuterol/Ipratropium (Duoneb *Not For Prn Use*) 1 ampul IH QIDRT [facility] Last Admin: 03/07/18 07:56 Dose: 1 ampul Documented by: Atorvastatin Calcium (Lipitor) 40 mg PO QHS [facility] [place] Carvedilol (Coreg) 6.25 mg PO BID [facility] [place] Last Admin: 03/07/18 12:16 Dose: 6.25 mg Documented by: Dextrose (D50w (25gm) Syringe) 50 ml IV PRN PRN PRN Reason: Hypoglycemia Famotidine (Pepcid) 20 mg PO QAM [facility] [place] Last Admin: 03/07/18 12:16 Dose: 20 mg Documented by: Furosemide (Lasix) 40 mg IV 0600,1800 [facility] [place] Last Admin: 03/07/18 05:59 Dose: 40 mg Documented by: Gabapentin (Neurontin) 100 mg PO [facility] Last Admin: 03/07/18 00:46 Dose: 100 mg Documented by: Glipizide (Glucotrol) 10 mg PO QDDIAB [facility] [place] Last Admin: 03/07/18 12:16 Dose: 10 mg Documented by: Hydromorphone HCl (Dilaudid) 0.5 mg IV Q3H PRN PRN Reason: Pain , Severe (7-10) Insulin Human Lispro (Humalog) 0 unit SUB-Q ACHS [facility] [place]; Protocol Last Admin: 03/07/18 08:57 Dose: Not Given Documented by: Isosorbide Mononitrate (Imdur) 30 mg PO DAILY [facility] [place] Last Admin: 03/07/18 12:16 Dose: 30 mg Documented by: Latanoprost (Latanoprost 0.005%) 1 drops OU HS NANCIE Losartan Potassium (Cozaar) 100 mg PO QDAY [facility] [place] Last Admin: 03/07/18 12:16 Dose: 100 mg Documented by: Magnesium Oxide (Mag-Ox) 400 mg PO DAILY [facility] [place] Last Admin: 03/07/18 12:16 Dose: 400 mg Documented by: Miscellaneous Medication (Alphagan P 0.1%) 1 drop OU BID NANCIE Montelukast Sodium (Singulair) 10 mg PO 1800 [facility] [place] Ondansetron HCl (Zofran) 4 mg IV Q8H PRN PRN Reason: Nausea And Vomiting Potassium Chloride (Potassium Chloride) 20 meq PO Q12H [facility] [place] Sodium Chloride (Sodium Chloride Flush Syringe 10 Ml) 10 ml IV BID [facility] [place] Last Admin: 03/07/18 12:17 Dose: 10 ml Documented by: Sodium Chloride (Sodium Chloride Flush Syringe 10 Ml) 10 ml IV PRN PRN PRN Reason: LINE FLUSH Warfarin Sodium (Coumadin) 5 mg PO DAILY@1700 [facility] [place]; Protocol Review of Systems All systems: negative Physical Examination Vital Signs Temp Pulse Resp BP Pulse Ox 97.6 F 72 20 166/99 95 03/06/18 16:33 03/06/18 16:33 03/06/18 16:33 03/06/18 16:33 03/06/18 16:33 General appearance: no acute distress Neck: Positive: neck supple. Negative: JVD/HJR Cardiac: Positive: irregularly irregular Lungs: Positive: Normal Exam Neuro: Positive: Grossly Intact Abdomen: Positive: Soft Extremities: Absent: edema Results 03/07/18 05:35 03/07/18 05:35 Cardiac Enzymes 03/06/18 03/07/18 Range/Units 17:16 05:35 AST 32 25 (5-40) units/L Coagulation 03/06/18 Range/Units 17:16 PT 45.5 H (12.2-14.9) Sec. INR 4.86 H (0.87-1.13) CBC 03/06/18 03/07/18 Range/Units 17:16 05:35 WBC 5.7 5.1 (4.5-11.0) K/mm3 RBC 4.92 4.76 (3.65-5.03) M/mm3 Hgb 12.4 11.9 (10.1-14.3) gm/dl Hct 37.6 36.4 (30.3-42.9) % Plt Count 277 271 (140-440) K/mm3 Lymph # 1.4 1.8 (1.2-5.4) K/mm3 [place] # 0.6 0.7 (0.0-0.8) K/mm3 Eos # 0.1 0.1 (0.0-0.4) K/mm3 Baso # 0.1 0.1 (0.0-0.1) K/mm3 Comprehensive Metabolic Panel 03/06/18 03/07/18 Range/Units 17:16 05:35 Sodium 139 144 (137-145) mmol/L Potassium 3.9 3.4 L (3.6-5.0) mmol/L Chloride 100.8 101.3 (98-107) mmol/L Carbon Dioxide 23 26 (22-30) mmol/L BUN 28 H 25 H (7-17) mg/dL Creatinine 1.4 H 1.3 H (0.7-1.2) mg/dL Glucose 183 H 132 H (65-100) mg/dL Calcium 9.1 8.9 (8.4-10.2) mg/dL AST 32 25 (5-40) units/L ALT 34 30 (7-56) units/L Alkaline Phosphatase 143 H 136 H (35-129) units/L Total Protein 7.7 7.5 (6.3-8.2) g/dL Albumin 4.0 3.8 L (3.9-5) g/dL - EKG Interpretation EKG shows: atrial fibrillation EKG interpretations - Telemetry EKG Rhythm: Atrial Fibrillation Assessment and Plan Shortness of breath Acute on chronic systolic heart failure Non-ischemic cardiomyopathy History of coronary angiography in [place] - normal per patient MPI this admission showing no ischemia LVEF 15-20% this admission Atrial fibrillation on warfarin for oral anticoagulation INR > 4 on presentation Recommendations: Continue medical therapy for nonischemic cardiomyopathy and persistent atrial fibrillation. IV diuresis and afterload reduction No further cardiac intervention Follow-up with quality assurance director at [facility]
[2018-03-07] MEDS ORDERED: POTASSIUM CHLORIDE PO SCH ×2 (13:00→22:00)
[2018-03-07] MEDS ORDERED: APRESOLINE IV PRN (15:30)
[2018-03-07 15:35] LABS: INR 3.49 (0.87-1.13)
[2018-03-07] MEDS ORDERED: COUMADIN NO DOSE TODAY PO ONE (17:00)
[2018-03-07] MEDS ORDERED: COUMADIN PO SCH (17:00)
[2018-03-07] MEDS: SINGULAIR PO SCH (18:13)
[2018-03-07] MEDS ORDERED: NEURONTIN PO SCH (22:00)
[2018-03-07] MEDS ORDERED: LOVENOX SUB-Q SCH (22:00)
[2018-03-07] MEDS: LATANOPROST 0.005% OU SCH (22:55)
--- NOTE | 2018-03-07 23:43 | Treadmill Report ---
ORDERING PHYSICIAN: Deondre Beaver MD FINDINGS: The left ventricular cavity is normal in size. There is no scintigraphic evidence of myocardial ischemia. There is severe global left ventricular hypokinesis and left ventricular ejection fraction is measured at 22%. IMPRESSION: Findings are consistent with nonischemic cardiomyopathy. JOB# [id number] ERNST/ELIAS
[2018-03-07] MEDS: ALPHAGAN P 0.1% OU SCH (23:45)
[2018-03-08 06:32] LABS: INR 4.06 (0.87-1.13)
[2018-03-08] MEDS: LASIX IV SCH ×2 (06:39→17:40)
[2018-03-08] MEDS: DUONEB *Not for PRN Use IH SCH ×4 (07:55→20:40)
[2018-03-08] MEDS: HumaLOG SUB-Q SCH ×4 (08:54→22:13)
[2018-03-08] MEDS: GLUCOTROL PO SCH (08:55)
[2018-03-08] MEDS: ALPHAGAN P 0.1% OU SCH ×4 (09:32→22:18)
[2018-03-08] MEDS: MAG-OX PO SCH (09:33)
[2018-03-08] MEDS: PEPCID PO SCH (09:33)
[2018-03-08] MEDS: COREG PO SCH ×2 (09:34→22:11)
[2018-03-08] MEDS: IMDUR PO SCH (09:35)
[2018-03-08] MEDS: COZAAR PO SCH (09:35)
[2018-03-08] MEDS: SODIUM CHLORIDE FLUSH SYRINGE 10 ML IV SCH ×2 (09:38→22:12)
[2018-03-08] MEDS: K-DUR PO SCH ×2 (09:51→22:10)
[2018-03-08] MEDS ORDERED: POTASSIUM CHLORIDE PO SCH (10:00)
--- NOTE | 2018-03-08 10:34 | Progress Note ---
Assessment and Plan Assessment and plan: Patient 67-year-old woman presents with orthopnea, PND and shortness of breath. The patient has been diuresed, continued diuresis She was seen by cardiology, who agreed with the plan CHF EF 15%, meds been optimized by cardiology Atrial fibrillation on warfarin; continue rate control medications, -INR is currently 4, due to warfarin, hold warfarin for now -Blood pressure medications were optimized -creat is at her baseline, avoid nephrotoxic agents - K was repleted Diagnoses Acute on chronic systolic CHF Atrial fibrillation with hypercoagulable state Coagulopathy due to warfarin Hypertension type 2 diabetes GERD Glaucoma Hypertensive urgency Hypokalemia CKD stage 3 History Interval history: Review of systems Constitutional: No fevers, no malaise, no joint pains CVS: Orthopnea is improving GI: No abdominal pain, no diarrhea, no vomiting, no constipation Respiratory: No shortness of breath, no wheezing, no coughing Hospitalist Physical - Physical exam Narrative exam: General.: Appears well, no distress, nontoxic HEENT: Moist mucous membranes, extraocular muscles intact, no lymphadenopathy Neck: supple Cardiac: S1-S2 heard Lungs: crackles in bases Abdomen: soft , nontender, nondistended, bowel sounds positive Extremities: no edema clubbing or cyanosis Skin: no rash or lesions Neurologic: no gross focal deficits Psych: calm, and cooperative - Constitutional Vitals: Temp Pulse Resp BP Pulse Ox 98.0 F 89 20 158/98 97 03/08/18 08:32 03/08/18 09:35 03/08/18 08:32 03/08/18 09:35 03/08/18 08:32 General appearance: Present: mild distress Results - Labs CBC & Chem 7: 03/07/18 05:35 03/07/18 05:35 Labs: Laboratory Last Values WBC 5.1 K/mm3 (4.5-11.0) 03/07/18 05:35 RBC 4.76 M/mm3 (3.65-5.03) 03/07/18 05:35 Hgb 11.9 gm/dl (10.1-14.3) 03/07/18 05:35 Hct 36.4 % (30.3-42.9) 03/07/18 05:35 MCV 76 fl (79-97) L 03/07/18 05:35 MCH 25 pg (28-32) L 03/07/18 05:35 MCHC 33 % (30-34) 03/07/18 05:35 RDW 17.7 % (13.2-15.2) H 03/07/18 05:35 Plt Count 271 K/mm3 (140-440) 03/07/18 05:35 Lymph % (Auto) 34.8 % (13.4-35.0) 03/07/18 05:35 [place] % (Auto) 12.8 % (0.0-7.3) H 03/07/18 05:35 Eos % (Auto) 1.7 % (0.0-4.3) 03/07/18 05:35 Baso % (Auto) 1.1 % (0.0-1.8) 03/07/18 05:35 Lymph # 1.8 K/mm3 (1.2-5.4) 03/07/18 05:35 [place] # 0.7 K/mm3 (0.0-0.8) 03/07/18 05:35 Eos # 0.1 K/mm3 (0.0-0.4) 03/07/18 05:35 Baso # 0.1 K/mm3 (0.0-0.1) 03/07/18 05:35 Seg Neutrophils % 49.6 % (40.0-70.0) 03/07/18 05:35 Seg Neutrophils # 2.5 K/mm3 (1.8-7.7) 03/07/18 05:35 PT 39.6 Sec. (12.2-14.9) H 03/08/18 05:45 INR 4.06 (0.87-1.13) H 03/08/18 05:45 Sodium 144 mmol/L (137-145) 03/07/18 05:35 Potassium 3.4 mmol/L (3.6-5.0) L 03/07/18 05:35 Chloride 101.3 mmol/L (98-107) 03/07/18 05:35 Carbon Dioxide 26 mmol/L (22-30) 03/07/18 05:35 Anion Gap 20 mmol/L 03/07/18 05:35 BUN 25 mg/dL (7-17) H 03/07/18 05:35 Creatinine 1.3 mg/dL (0.7-1.2) H 03/07/18 05:35 Estimated GFR 49 ml/min 03/07/18 05:35 BUN/Creatinine Ratio 19 % 03/07/18 05:35 Glucose 132 mg/dL (65-100) H 03/07/18 05:35 POC Glucose 158 (70-105) H 03/08/18 06:27 Hemoglobin A1c 8.9 % (4-6) H 03/06/18 17:16 Calcium 8.9 mg/dL (8.4-10.2) 03/07/18 05:35 Magnesium 1.70 mg/dL (1.7-2.3) 03/06/18 17:16 Total Bilirubin 0.70 mg/dL (0.1-1.2) 03/07/18 05:35 AST 25 units/L (5-40) 03/07/18 05:35 ALT 30 units/L (7-56) 03/07/18 05:35 Alkaline Phosphatase 136 units/L (35-129) H 03/07/18 05:35 Troponin T < 0.010 ng/mL (0.00-0.029) 03/07/18 05:35 NT-Pro-B Natriuret Pep 33491 pg/mL (0-900) H 03/06/18 17:16 Total Protein 7.5 g/dL (6.3-8.2) 03/07/18 05:35 Albumin 3.8 g/dL (3.9-5) L 03/07/18 05:35 Albumin/Globulin Ratio 1.0 % 03/07/18 05:35 Urine Color Yellow (Yellow) 03/06/18 20:25 Urine Turbidity Clear (Clear) 03/06/18 20:25 Urine pH 6.0 (5.0-7.0) 03/06/18 20:25 Ur Specific [place] 1.005 (1.003-1.030) 03/06/18 20:25 Urine Protein 100 mg/dl mg/dL (Negative) 03/06/18 20:25 Urine Glucose (UA) Neg mg/dL (Negative) 03/06/18 20:25 Urine Ketones Neg mg/dL (Negative) 03/06/18 20:25 Urine Blood Neg (Negative) 03/06/18 20:25 Urine Nitrite Neg (Negative) 03/06/18 20:25 Urine Bilirubin Neg (Negative) 03/06/18 20:25 Urine Urobilinogen < 2.0 mg/dL (<2.0) 03/06/18 20:25 Ur Leukocyte Esterase Neg (Negative) 03/06/18 20:25 Urine WBC (Auto) 1.0 /HPF (0.0-6.0) 03/06/18 20:25 Urine RBC (Auto) 4.0 /HPF (0.0-6.0) 03/06/18 20:25 U Epithel Cells (Auto) 1.0 /HPF (0-13.0) 03/06/18 20:25 Nutrition/Malnutrition Assess - Dietary Evaluation Nutrition/Malnutrition Findings: Nutrition Notes Start: 03/07/18 15:17 Freq: Status: Active Protocol: Document 03/07/18 15:32 RM (Rec: 03/07/18 15:36 RM [id number]) Nutrition Notes Need for Assessment generated from: Education Initial or Follow up Assessment Current Diagnosis Diabetes Hypertension Heart Failure Hyperlipidemia Subjective/Other Information Pt screened for Coumadin/Vit K diet education. Pt stated that she had been previously educated but had not fully understand it. Reviewed Coumadin/Vit K diet education. Gave handout. #1 Nutrition Diagnosis Food and nutrition-related knowledge deficit Etiology incomplete understanding of previous education As Evidenced by Signs and Symptoms pt desire for diet education Nutrition Intervention Teaching Recipient Patient Learning Readiness Good Teaching Methods Discussion Handout Response to Teaching Verbalize understanding Education Handouts Provided Vit K and Medications Barriers to Learning No Barriers RD phone number provided Yes Patient aware of follow up options Yes Goal #1 Adhere to diet Revisit per MD consult or patient Sign Off request:
--- NOTE | 2018-03-08 10:41 | Progress Note ---
Addendum entered and electronically signed by TIANA WILDER MD 03/08/18 14:12: Conservative cardiac medical therapy for nonischemic cardiomyopathy, permanent a trial fibrillation and chronic left ventricular systolic dysfunction. Original Note: Assessment and Plan Shortness of breath Acute on chronic systolic heart failure Non-ischemic cardiomyopathy History of coronary angiography in [place] - normal per patient MPI this admission showing no ischemia LVEF 15-20% this admission Atrial fibrillation on warfarin for oral anticoagulation INR > 4 on presentation Recommendations: Continue medical therapy for nonischemic cardiomyopathy and persistent atrial fibrillation. Follow-up with labeling specialist at [facility] within 3 days of discharge for INR check. Subjective Date of service: 03/08/18 Interval history: Patient has no cardiac complaints. She denies chest pain and shortness of breath. Objective Vital Signs Temp Pulse Pulse Pulse Pulse Resp Resp 03/08/18 09:35 89 03/08/18 09:34 89 03/08/18 08:32 98.0 F 89 20 03/08/18 08:06 88 18 03/08/18 07:57 03/08/18 07:55 88 18 03/08/18 05:00 78 03/08/18 03:44 97.0 F L 78 18 03/07/18 23:34 98.0 F 93 H 20 03/07/18 22:55 96 H 03/07/18 22:00 74 74 18 03/07/18 21:33 89 16 03/07/18 21:21 94 H 16 03/07/18 21:20 03/07/18 21:00 78 03/07/18 19:26 98.0 F 18 03/07/18 17:19 86 03/07/18 15:38 78 18 03/07/18 15:28 76 18 03/07/18 13:00 80 03/07/18 12:58 98.3 F 86 18 03/07/18 12:46 79 18 03/07/18 12:36 78 18 03/07/18 10:47 89 03/07/18 10:46 84 03/07/18 10:45 88 03/07/18 10:44 83 03/07/18 10:43 74 BP Pulse Ox 03/08/18 09:35 158/98 03/08/18 09:34 158/98 03/08/18 08:32 158/98 97 03/08/18 08:06 03/08/18 07:57 93 03/08/18 07:55 03/08/18 05:00 03/08/18 03:44 159/111 94 03/07/18 23:34 142/87 88 03/07/18 22:55 152/102 03/07/18 22:00 100 03/07/18 21:33 03/07/18 21:21 03/07/18 21:20 97 03/07/18 21:00 03/07/18 19:26 152/102 03/07/18 17:19 150/92 97 03/07/18 15:38 03/07/18 15:28 03/07/18 13:00 03/07/18 12:58 163/98 93 03/07/18 12:46 03/07/18 12:36 03/07/18 10:47 200/108 03/07/18 10:46 189/97 03/07/18 10:45 201/104 03/07/18 10:44 195/104 03/07/18 10:43 191/102 - Physical Examination General: No Apparent Distress HEENT: Positive: PERRL Neck: Positive: neck supple Cardiac: Positive: irregularly irregular Lungs: Positive: Decreased Breath Sounds Neuro: Positive: Grossly Intact Abdomen: Positive: Soft Extremities: Absent: edema - Labs and Meds Coagulation 03/07/18 03/08/18 Range/Units 14:58 05:45 PT 35.3 H 39.6 H (12.2-14.9) Sec. INR 3.49 H 4.06 H (0.87-1.13)
[2018-03-08] MEDS: SINGULAIR PO SCH (17:39)
[2018-03-08] MEDS: NEURONTIN PO SCH (22:11)
[2018-03-08] MEDS: LATANOPROST 0.005% OU SCH (22:16)
[2018-03-09] MEDS: LASIX IV SCH (05:41)
[2018-03-09 05:49] LABS: INR 3.55 (0.87-1.13)
[2018-03-09 06:02] LABS: Calcium 8.7 mg/dL (8.4-10.2)
[2018-03-09] MEDS: GLUCOTROL PO SCH (08:59)
[2018-03-09] MEDS: HumaLOG SUB-Q SCH ×4 (08:59→21:48)
[2018-03-09] MEDS: COREG PO SCH ×2 (09:05→21:46)
[2018-03-09] MEDS: COZAAR PO SCH (09:05)
[2018-03-09] MEDS: PEPCID PO SCH (09:06)
[2018-03-09] MEDS: IMDUR PO SCH (09:06)
[2018-03-09] MEDS: K-DUR PO SCH ×2 (09:06→21:48)
[2018-03-09] MEDS: MAG-OX PO SCH (09:06)
[2018-03-09] MEDS: ALPHAGAN P 0.1% OU SCH ×2 (09:07→21:57)
[2018-03-09] MEDS: SODIUM CHLORIDE FLUSH SYRINGE 10 ML IV SCH ×2 (09:18→21:57)
--- NOTE | 2018-03-09 09:35 | Progress Note ---
Addendum entered and electronically signed by JARROD WALLS MD 03/09/18 12:56: Arrange for lifevest prior to discharge Original Note: Assessment and Plan Shortness of breath Acute renal failure Acute on chronic systolic heart failure Non-ischemic cardiomyopathy History of coronary angiography in [place] - normal per patient MPI this admission showing no ischemia LVEF 15-20% this admission Atrial fibrillation on warfarin for oral anticoagulation INR > 4 on presentation NSVT on telemetry -pt remained asymptomatic Recommendations: We will increase beta blockers for suppression of non-sustained ventricular tachycardia. Continue medical therapy for nonischemic cardiomyopathy and persistent atrial fibrillation. Subjective Date of service: 03/09/18 Interval history: Patient complains of non productive coughs. NSVT seen on telemetry this morning. Patient remained asymptomatic. Objective Vital Signs Temp Pulse Pulse Pulse Pulse Pulse Pulse 03/09/18 09:06 92 H 03/09/18 09:05 92 H 03/09/18 09:03 98.0 F 93 H 03/09/18 05:12 97.7 F 97 H 03/09/18 01:10 98.0 F 98 H 03/08/18 23:00 93 H 93 H 03/08/18 22:11 93 H 03/08/18 21:40 98.4 F 93 H 03/08/18 21:01 99 H 03/08/18 20:43 03/08/18 20:42 98 H 03/08/18 20:37 96 H 03/08/18 17:12 80 80 03/08/18 17:04 89 89 03/08/18 15:57 98.0 F 82 03/08/18 13:51 92 H 03/08/18 13:41 89 03/08/18 13:00 85 03/08/18 10:36 98.0 F 90 03/08/18 10:00 89 03/08/18 09:35 89 03/08/18 09:34 89 Resp Resp Resp Resp BP Pulse Ox 03/09/18 09:06 151/102 03/09/18 09:05 151/102 03/09/18 09:03 20 151/102 98 03/09/18 05:12 20 153/99 98 03/09/18 01:10 18 143/87 100 03/08/18 23:00 20 92 03/08/18 22:11 150/84 03/08/18 21:40 18 150/84 92 03/08/18 21:01 20 03/08/18 20:43 99 03/08/18 20:42 17 03/08/18 20:37 03/08/18 17:12 16 16 03/08/18 17:04 16 16 03/08/18 15:57 20 130/80 89 03/08/18 13:51 18 03/08/18 13:41 18 03/08/18 13:00 03/08/18 10:36 20 149/79 97 03/08/18 10:00 20 97 03/08/18 09:35 158/98 03/08/18 09:34 158/98 - Physical Examination General: No Apparent Distress HEENT: Positive: PERRL Neck: Positive: trachea midline Cardiac: Positive: Reg Rate and Rhythm Lungs: Positive: Decreased Breath Sounds Neuro: Positive: Grossly Intact Abdomen: Positive: Soft Extremities: Absent: edema - Labs and Meds Coagulation 03/09/18 Range/Units 05:08 PT 35.8 H (12.2-14.9) Sec. INR 3.55 H (0.87-1.13) Comprehensive Metabolic Panel 03/09/18 Range/Units 05:08 Sodium 144 (137-145) mmol/L Potassium 3.6 (3.6-5.0) mmol/L Chloride 102.9 (98-107) mmol/L Carbon Dioxide 29 (22-30) mmol/L BUN 28 H (7-17) mg/dL Creatinine 1.6 H (0.7-1.2) mg/dL Glucose 154 H (65-100) mg/dL Calcium 8.7 (8.4-10.2) mg/dL
[2018-03-09] MEDS: DUONEB *Not for PRN Use IH SCH ×4 (10:28→20:03)
--- NOTE | 2018-03-09 14:32 | Progress Note ---
Assessment and Plan Assessment and plan: Patient 67-year-old woman presents with orthopnea, PND and shortness of breath. The patient has been diuresed, continued diuresis She was seen by cardiology, who agreed with the plan CHF EF 15%, meds been optimized by cardiology Atrial fibrillation on warfarin; continue rate control medications, -INR is currently 4, due to warfarin, hold warfarin for now -Blood pressure medications were optimized -creat is at her baseline, avoid nephrotoxic agents - K was repleted -Cr bumped up after lasix, therefore it was held - for lifevest prior to dc dw with her PCP at [facility] at [phone] Diagnoses Acute on chronic systolic CHF Atrial fibrillation with hypercoagulable state Coagulopathy due to warfarin Hypertension type 2 diabetes GERD Glaucoma Hypertensive urgency Hypokalemia JJ upon CKD stage 3/ vasomotor nephropathy History Interval history: Review of systems Constitutional: No fevers, no malaise, no joint pains CVS: Orthopnea is improving GI: No abdominal pain, no diarrhea, no vomiting, no constipation Respiratory: No shortness of breath, no wheezing, no coughing Hospitalist Physical - Physical exam Narrative exam: General.: Appears well, no distress, nontoxic HEENT: Moist mucous membranes, extraocular muscles intact, no lymphadenopathy Neck: supple Cardiac: S1-S2 heard Lungs: crackles in bases Abdomen: soft , nontender, nondistended, bowel sounds positive Extremities: no edema clubbing or cyanosis Skin: no rash or lesions Neurologic: no gross focal deficits Psych: calm, and cooperative - Constitutional Vitals: Temp Pulse Resp BP Pulse Ox 98.0 F 88 18 151/102 94 03/09/18 09:03 03/09/18 12:08 03/09/18 12:08 03/09/18 09:06 03/09/18 10:28 General appearance: Present: mild distress Results - Labs CBC & Chem 7: 03/07/18 05:35 03/09/18 05:08 Labs: Laboratory Last Values WBC 5.1 K/mm3 (4.5-11.0) 03/07/18 05:35 RBC 4.76 M/mm3 (3.65-5.03) 03/07/18 05:35 Hgb 11.9 gm/dl (10.1-14.3) 03/07/18 05:35 Hct 36.4 % (30.3-42.9) 03/07/18 05:35 MCV 76 fl (79-97) L 03/07/18 05:35 MCH 25 pg (28-32) L 03/07/18 05:35 MCHC 33 % (30-34) 03/07/18 05:35 RDW 17.7 % (13.2-15.2) H 03/07/18 05:35 Plt Count 271 K/mm3 (140-440) 03/07/18 05:35 Lymph % (Auto) 34.8 % (13.4-35.0) 03/07/18 05:35 [place] % (Auto) 12.8 % (0.0-7.3) H 03/07/18 05:35 Eos % (Auto) 1.7 % (0.0-4.3) 03/07/18 05:35 Baso % (Auto) 1.1 % (0.0-1.8) 03/07/18 05:35 Lymph # 1.8 K/mm3 (1.2-5.4) 03/07/18 05:35 [place] # 0.7 K/mm3 (0.0-0.8) 03/07/18 05:35 Eos # 0.1 K/mm3 (0.0-0.4) 03/07/18 05:35 Baso # 0.1 K/mm3 (0.0-0.1) 03/07/18 05:35 Seg Neutrophils % 49.6 % (40.0-70.0) 03/07/18 05:35 Seg Neutrophils # 2.5 K/mm3 (1.8-7.7) 03/07/18 05:35 PT 35.8 Sec. (12.2-14.9) H 03/09/18 05:08 INR 3.55 (0.87-1.13) H 03/09/18 05:08 Sodium 144 mmol/L (137-145) 03/09/18 05:08 Potassium 3.6 mmol/L (3.6-5.0) 03/09/18 05:08 Chloride 102.9 mmol/L (98-107) 03/09/18 05:08 Carbon Dioxide 29 mmol/L (22-30) 03/09/18 05:08 Anion Gap 16 mmol/L 03/09/18 05:08 BUN 28 mg/dL (7-17) H 03/09/18 05:08 Creatinine 1.6 mg/dL (0.7-1.2) H 03/09/18 05:08 Estimated GFR 39 ml/min 03/09/18 05:08 BUN/Creatinine Ratio 18 % 03/09/18 05:08 Glucose 154 mg/dL (65-100) H 03/09/18 05:08 POC Glucose 214 (70-105) H 03/09/18 12:05 Hemoglobin A1c 8.9 % (4-6) H 03/06/18 17:16 Calcium 8.7 mg/dL (8.4-10.2) 03/09/18 05:08 Magnesium 1.70 mg/dL (1.7-2.3) 03/06/18 17:16 Total Bilirubin 0.70 mg/dL (0.1-1.2) 03/07/18 05:35 AST 25 units/L (5-40) 03/07/18 05:35 ALT 30 units/L (7-56) 03/07/18 05:35 Alkaline Phosphatase 136 units/L (35-129) H 03/07/18 05:35 Troponin T < 0.010 ng/mL (0.00-0.029) 03/07/18 05:35 NT-Pro-B Natriuret Pep 94913 pg/mL (0-900) H 03/06/18 17:16 Total Protein 7.5 g/dL (6.3-8.2) 03/07/18 05:35 Albumin 3.8 g/dL (3.9-5) L 03/07/18 05:35 Albumin/Globulin Ratio 1.0 % 03/07/18 05:35 Urine Color Yellow (Yellow) 03/06/18 20:25 Urine Turbidity Clear (Clear) 03/06/18 20:25 Urine pH 6.0 (5.0-7.0) 03/06/18 20:25 Ur Specific [place] 1.005 (1.003-1.030) 03/06/18 20:25 Urine Protein 100 mg/dl mg/dL (Negative) 03/06/18 20:25 Urine Glucose (UA) Neg mg/dL (Negative) 03/06/18 20:25 Urine Ketones Neg mg/dL (Negative) 03/06/18 20:25 Urine Blood Neg (Negative) 03/06/18 20:25 Urine Nitrite Neg (Negative) 03/06/18 20:25 Urine Bilirubin Neg (Negative) 03/06/18 20:25 Urine Urobilinogen < 2.0 mg/dL (<2.0) 03/06/18 20:25 Ur Leukocyte Esterase Neg (Negative) 03/06/18 20:25 Urine WBC (Auto) 1.0 /HPF (0.0-6.0) 03/06/18 20:25 Urine RBC (Auto) 4.0 /HPF (0.0-6.0) 03/06/18 20:25 U Epithel Cells (Auto) 1.0 /HPF (0-13.0) 03/06/18 20:25 Nutrition/Malnutrition Assess - Dietary Evaluation Nutrition/Malnutrition Findings: Nutrition Notes Start: 03/07/18 15:17 Freq: Status: Active Protocol: Document 03/07/18 15:32 RM (Rec: 03/07/18 15:36 RM [id number]) Nutrition Notes Need for Assessment generated from: Education Initial or Follow up Assessment Current Diagnosis Diabetes Hypertension Heart Failure Hyperlipidemia Subjective/Other Information Pt screened for Coumadin/Vit K diet education. Pt stated that she had been previously educated but had not fully understand it. Reviewed Coumadin/Vit K diet education. Gave handout. #1 Nutrition Diagnosis Food and nutrition-related knowledge deficit Etiology incomplete understanding of previous education As Evidenced by Signs and Symptoms pt desire for diet education Nutrition Intervention Teaching Recipient Patient Learning Readiness Good Teaching Methods Discussion Handout Response to Teaching Verbalize understanding Education Handouts Provided Vit K and Medications Barriers to Learning No Barriers RD phone number provided Yes Patient aware of follow up options Yes Goal #1 Adhere to diet Revisit per MD consult or patient Sign Off request:
[2018-03-09] MEDS: SINGULAIR PO SCH (17:48)
[2018-03-09] MEDS: NEURONTIN PO SCH (21:47)
[2018-03-09] MEDS: LATANOPROST 0.005% OU SCH (21:47)
[2018-03-10 06:52] LABS: Calcium 9.2 mg/dL (8.4-10.2)
[2018-03-10 07:28] LABS: INR 2.02 (0.87-1.13)
[2018-03-10] MEDS: HumaLOG SUB-Q SCH ×4 (08:00→21:50)
[2018-03-10] MEDS: DUONEB *Not for PRN Use IH SCH ×4 (10:34→21:28)
--- NOTE | 2018-03-10 10:49 | Progress Note ---
Assessment and Plan - Patient Problems (1) Acute exacerbation of CHF (congestive heart failure) Current Visit: Yes Status: Acute Qualifiers: Heart failure type: unspecified Qualified Code(s): I50.9 - Heart failure, unspecified (2) Hypertensive emergency Current Visit: Yes Status: Acute (3) Chronic a-fib Current Visit: Yes Status: Chronic (4) HLD (hyperlipidemia) Current Visit: Yes Status: Chronic Qualifiers: Hyperlipidemia type: mixed hyperlipidemia Qualified Code(s): E78.2 - Mixed hyperlipidemia (5) HTN (hypertension) Current Visit: Yes Status: Chronic Qualifiers: Hypertension type: essential hypertension Qualified Code(s): I10 - Essential (primary) hypertension (6) T2DM (type 2 diabetes mellitus) Current Visit: Yes Status: Chronic Qualifiers: 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 BETTER Objective Vital Signs Temp Pulse Pulse Pulse Resp Resp BP 03/10/18 10:46 91 H 18 03/10/18 10:39 03/10/18 10:34 83 16 03/10/18 07:43 97.7 F 90 16 159/106 03/10/18 05:04 97.4 F L 102 H 18 137/93 03/09/18 23:37 98.2 F 116 H 20 153/88 03/09/18 21:46 100 H 151/86 03/09/18 20:50 100 H 18 03/09/18 20:16 100 H 18 03/09/18 20:09 03/09/18 20:05 124 H 17 03/09/18 19:49 97.8 F 100 H 1 L 151/86 03/09/18 19:06 94 H 03/09/18 16:07 95 H 20 03/09/18 15:57 93 H 20 03/09/18 15:13 104 H 20 153/95 03/09/18 12:08 88 18 Pulse Ox 03/10/18 10:46 03/10/18 10:39 96 03/10/18 10:34 03/10/18 07:43 97 03/10/18 05:04 92 03/09/18 23:37 94 03/09/18 21:46 03/09/18 20:50 94 03/09/18 20:16 03/09/18 20:09 94 03/09/18 20:05 03/09/18 19:49 94 03/09/18 19:06 03/09/18 16:07 03/09/18 15:57 03/09/18 15:13 95 03/09/18 12:08 - Physical Examination General: No Apparent Distress HEENT: Positive: PERRL Neck: Positive: trachea midline Cardiac: Positive: Reg Rate and Rhythm Lungs: Positive: clear to auscultation Neuro: Positive: Grossly Intact Abdomen: Positive: Soft Extremities: Absent: edema - Labs and Meds Coagulation 03/10/18 Range/Units 05:43 PT 23.3 H (12.2-14.9) Sec. INR 2.02 H (0.87-1.13) Comprehensive Metabolic Panel 03/10/18 Range/Units 05:43 Sodium 141 (137-145) mmol/L Potassium 3.8 (3.6-5.0) mmol/L Chloride 100.5 (98-107) mmol/L Carbon Dioxide 26 (22-30) mmol/L BUN 23 H (7-17) mg/dL Creatinine 1.2 (0.7-1.2) mg/dL Glucose 171 H (65-100) mg/dL Calcium 9.2 (8.4-10.2) mg/dL - Imaging and Cardiology EKG: report reviewed (A fib 68/min LVH )
[2018-03-10] MEDS ORDERED: COREG PO SCH (11:00)
[2018-03-10] MEDS: COREG PO SCH ×3 (11:04→21:48)
[2018-03-10] MEDS: COZAAR PO SCH (11:04)
[2018-03-10] MEDS: IMDUR PO SCH (11:04)
[2018-03-10] MEDS: PEPCID PO SCH (11:05)
[2018-03-10] MEDS: K-DUR PO SCH ×2 (11:05→21:49)
[2018-03-10] MEDS: MAG-OX PO SCH (11:12)
[2018-03-10] MEDS: GLUCOTROL PO SCH (11:13)
[2018-03-10] MEDS: ALPHAGAN P 0.1% OU SCH ×2 (11:13→21:51)
[2018-03-10] MEDS: SODIUM CHLORIDE FLUSH SYRINGE 10 ML IV SCH ×2 (11:19→21:51)
--- NOTE | 2018-03-10 13:47 | Consultation ---
History of Present Illness - Reason for Consult Consult date: 03/10/18 acute renal failure Requesting physician: POORNIMA QUESADA - History of Present Illness This is a 67yo AAF with past medical history of hypertension, type 2 DM, chronic systolic HF, who initially presented with increasing shortness of breath and chest tightness, for the past week, YAÑEZ, orthopnea, was admitted for management of acute on chronic systolic HF. LVEF was measured to be 15-20% on this admission. Pt had fluctuating Cr between 1.2-1.6mg/dl for which renal consult is requested. pt denies recent NSAIDs use or IV contrast exposure Past History Past Medical History: diabetes, hypertension, other (Arthritis) Past Surgical History: No surgical history Social history: no significant social history Family history: no significant family history Medications and Allergies Allergies Allergy/AdvReac Type Severity Reaction Status Date / Time lisinopril Allergy Shortness Verified 03/06/18 16:33 of Breath Home Medications Medication Instructions Recorded Confirmed Last Taken Type [place]-3/Dha/Epa/Fish Oil [Fish Oil 1,000 mg PO DAILY 08/09/17 08/09/17 08/09/17 History 1,000 mg Softgel] Warfarin [Coumadin] 5 mg PO HS 08/09/17 08/09/17 08/08/17 History glipiZIDE [Glipizide] 10 mg PO HS 08/09/17 08/09/17 08/08/17 History Alphagan P 0.1% 1 drop OU BID 08/10/17 08/10/17 08/09/17 History AtorvaSTATin 40 mg PO DAILY 08/10/17 08/10/17 08/09/17 History Carvedilol [Coreg] 6.25 mg PO BID 08/10/17 08/10/17 08/09/17 History Famotidine 20 mg PO DAILY 08/10/17 08/10/17 08/09/17 History Glipizide 10 mg PO DAILY 08/10/17 08/10/17 08/09/17 History Isosorbide Mononitrate 30 mg PO DAILY 08/10/17 08/10/17 08/09/17 History Latanoprost 0.005% 1 drops OU HS 08/10/17 08/10/17 08/09/17 History Magnesium Oxide 400 mg PO DAILY 0708/10/17 08/09/17 History Montelukast 10 mg PO DAILY 08/10/17 08/10/17 08/09/17 History AtorvaSTATin [Lipitor] 40 mg PO QHS #30 tablet 08/16/17 Unknown Rx Furosemide [Lasix] 80 mg PO DAILY #30 tablet 08/16/17 Unknown Rx Gabapentin [Neurontin] 100 mg PO HS #30 capsule 08/16/17 Unknown Rx ISOSORBIDE MONOnitrate [Imdur ER] 30 mg PO DAILY #30 tablet 08/16/17 Unknown Rx Latanoprost 0.005% 1 drops OU HS bottle 08/16/17 Unknown Rx Losartan [Cozaar] 100 mg PO QDAY #30 tablet 08/16/17 Unknown Rx Metformin HCl 1,000 mg PO HS #30 tablet 08/16/17 Unknown Rx Metoprolol [Lopressor TAB] 50 mg PO BID #60 tablet 08/16/17 Unknown Rx Montelukast [Singulair] 10 mg PO QDAY #30 tablet 08/16/17 Unknown Rx Pantoprazole [Protonix TAB] 40 mg PO QDAY #30 tablet 08/16/17 Unknown Rx Potassium Chloride [K-Dur] 20 meq PO Q12H #30 tablet 08/16/17 Unknown Rx Warfarin [Coumadin] 5 mg PO DAILY@1700 #30 tablet 08/16/17 Unknown Rx glipiZIDE [Glucotrol] 10 mg PO QDDIAB #60 tablet 08/16/17 Unknown Rx Active Meds: Active Medications Acetaminophen (Tylenol) 650 mg PO Q4H PRN PRN Reason: Pain MILD(1-3)/Fever >100.5/GARCIA Albuterol/Ipratropium (Duoneb *Not For Prn Use*) 1 ampul IH QIDRT [facility] Last Admin: 03/10/18 13:33 Dose: 1 ampul Documented by: Atorvastatin Calcium (Lipitor) 40 mg PO QHS [facility] Last Admin: 03/09/18 21:46 Dose: 40 mg Documented by: Carvedilol (Coreg) 25 mg PO BID [facility] Last Admin: 03/10/18 11:13 Dose: 25 mg Documented by: Dextrose (D50w (25gm) Syringe) 50 ml IV PRN PRN PRN Reason: Hypoglycemia Famotidine (Pepcid) 20 mg PO QAM [facility] Last Admin: 03/10/18 11:05 Dose: 20 mg Documented by: Gabapentin (Neurontin) 100 mg PO HS [facility] Last Admin: 03/09/18 21:47 Dose: 100 mg Documented by: Glipizide (Glucotrol) 10 mg PO QDDIAB [facility] Last Admin: 03/10/18 11:13 Dose: 10 mg Documented by: Hydralazine HCl (Apresoline) 10 mg IV Q4H PRN PRN Reason: BP >160/100 Hydromorphone HCl (Dilaudid) 0.5 mg IV Q3H PRN PRN Reason: Pain , Severe (7-10) Insulin Human Lispro (Humalog) 0 unit SUB-Q ACHS [facility]; Protocol Last Admin: 03/09/18 21:48 Dose: 3 unit Documented by: Isosorbide Mononitrate (Imdur) 30 mg PO DAILY [facility] Last Admin: 03/10/18 11:04 Dose: 30 mg Documented by: Latanoprost (Latanoprost 0.005%) 1 drops OU [facility] Last Admin: 03/09/18 21:47 Dose: 1 drops Documented by: Losartan Potassium (Cozaar) 100 mg PO QDAY [facility] Last Admin: 03/10/18 11:04 Dose: 100 mg Documented by: Magnesium Oxide (Mag-Ox) 400 mg PO DAILY [facility] Last Admin: 03/10/18 11:12 Dose: 400 mg Documented by: Miscellaneous Medication (Alphagan P 0.1%) 1 drop OU BID [facility] Last Admin: 03/10/18 11:13 Dose: 1 drop Documented by: Montelukast Sodium (Singulair) 10 mg PO 1800 [facility] Last Admin: 03/09/18 17:48 Dose: 10 mg Documented by: Ondansetron HCl (Zofran) 4 mg IV Q8H PRN PRN Reason: Nausea And Vomiting Potassium Chloride (K-Dur) 20 meq PO BID [facility] Last Admin: 03/10/18 11:05 Dose: 20 meq Documented by: Sodium Chloride (Sodium Chloride Flush Syringe 10 Ml) 10 ml IV BID [facility] Last Admin: 03/10/18 11:19 Dose: 10 ml Documented by: Sodium Chloride (Sodium Chloride Flush Syringe 10 Ml) 10 ml IV PRN PRN PRN Reason: LINE FLUSH Warfarin Sodium (Coumadin) 1 mg PO DAILY@1700 [facility] Exam - Vital Signs Vital signs: Vital Signs Temp Pulse Resp BP Pulse Ox 97.6 F 72 20 166/99 95 03/06/18 16:33 03/06/18 16:33 03/06/18 16:33 03/06/18 16:33 03/06/18 16:33 - General Appearance General appearance: well-developed, well-nourished, appears stated age EENT: ATNC, PERRL, mucous membranes moist Neck: Present: neck supple Respiratory: Decreased Breath Sounds Heart: regular, S1S2 Gastrointestinal: Present: normoactive bowel sounds Integumentary: no rash, other (no edema ) Neurologic: no focal deficit, alert and oriented x3, strength 5/5, CN 3-12 intact Psychiatric: mood/affect appropriate, cooperative Results - Lab Results 03/07/18 05:35 03/10/18 05:43 Most recent lab results Calcium 9.2 mg/dL (8.4-10.2) 03/10/18 05:43 Magnesium 1.70 mg/dL (1.7-2.3) 03/06/18 17:16 Assessment and Plan - Patient Problems (1) Acute on chronic renal insufficiency Current Visit: Yes Status: Acute Plan to address problem: likely secondary to acute cardiorenal syndrome and diuretic effect. Cr improved to 1.2mg/dl today after holding IV lasix. volume status is stable, will resume lasix 40mg po qd starting tomorrow. cont ARB given stable renal function. avoid nephrotoxins, NSAIDs, IV contrast. (2) Acute exacerbation of CHF (congestive heart failure) Current Visit: Yes Status: Acute Qualifiers: Heart failure type: unspecified Qualified Code(s): I50.9 - Heart failure, unspecified Plan to address problem: cont BB, ARB, loop diuretic. follow cardiology recommendations. (3) Chronic atrial fibrillation Current Visit: Yes Status: Acute Plan to address problem: rate control as per cardiology
--- NOTE | 2018-03-10 15:11 | Progress Note ---
Assessment and Plan Assessment and plan: Patient 67-year-old woman presents with orthopnea, PND and shortness of breath. Hospital ourse The patient has been diuresed, continued diuresis She was seen by cardiology, who agreed with the plan CHF EF 15%, meds been optimized by cardiology Atrial fibrillation on warfarin; continue rate control medications, -INR was supratherapeutic, therefore warfarin was held for several days, then he was restarted when INR was at goal. -Blood pressure medications were optimized - K was repleted -Cr bumped up after lasix, therefore it was held x 2 days, cr improved, dw Dr Koo - for lifevest prior to dc dw with her PCP at [facility] at [phone] Diagnoses Acute on chronic systolic CHF Atrial fibrillation with hypercoagulable state Coagulopathy due to warfarin Hypertension type 2 diabetes GERD Glaucoma Hypertensive urgency Hypokalemia JJ upon CKD stage 3/ vasomotor nephropathy History Interval history: Review of systems Constitutional: No fevers, no malaise, no joint pains CVS: Orthopnea is improving GI: No abdominal pain, no diarrhea, no vomiting, no constipation Respiratory: No shortness of breath, no wheezing, no coughing Hospitalist Physical - Physical exam Narrative exam: General.: Appears well, no distress, nontoxic HEENT: Moist mucous membranes, extraocular muscles intact, no lymphadenopathy Neck: supple Cardiac: S1-S2 heard Lungs: crackles in bases Abdomen: soft , nontender, nondistended, bowel sounds positive Extremities: no edema clubbing or cyanosis Skin: no rash or lesions Neurologic: no gross focal deficits Psych: calm, and cooperative - Constitutional Vitals: Temp Pulse Resp BP Pulse Ox 98.1 F 90 18 167/104 95 03/10/18 12:03 03/10/18 13:43 03/10/18 13:43 03/10/18 12:03 03/10/18 12:03 General appearance: Present: mild distress Results - Labs CBC & Chem 7: 03/07/18 05:35 03/10/18 05:43 Labs: Laboratory Last Values WBC 5.1 K/mm3 (4.5-11.0) 03/07/18 05:35 RBC 4.76 M/mm3 (3.65-5.03) 03/07/18 05:35 Hgb 11.9 gm/dl (10.1-14.3) 03/07/18 05:35 Hct 36.4 % (30.3-42.9) 03/07/18 05:35 MCV 76 fl (79-97) L 03/07/18 05:35 MCH 25 pg (28-32) L 03/07/18 05:35 MCHC 33 % (30-34) 03/07/18 05:35 RDW 17.7 % (13.2-15.2) H 03/07/18 05:35 Plt Count 271 K/mm3 (140-440) 03/07/18 05:35 Lymph % (Auto) 34.8 % (13.4-35.0) 03/07/18 05:35 [place] % (Auto) 12.8 % (0.0-7.3) H 03/07/18 05:35 Eos % (Auto) 1.7 % (0.0-4.3) 03/07/18 05:35 Baso % (Auto) 1.1 % (0.0-1.8) 03/07/18 05:35 Lymph # 1.8 K/mm3 (1.2-5.4) 03/07/18 05:35 [place] # 0.7 K/mm3 (0.0-0.8) 03/07/18 05:35 Eos # 0.1 K/mm3 (0.0-0.4) 03/07/18 05:35 Baso # 0.1 K/mm3 (0.0-0.1) 03/07/18 05:35 Seg Neutrophils % 49.6 % (40.0-70.0) 03/07/18 05:35 Seg Neutrophils # 2.5 K/mm3 (1.8-7.7) 03/07/18 05:35 PT 23.3 Sec. (12.2-14.9) H 03/10/18 05:43 INR 2.02 (0.87-1.13) H 03/10/18 05:43 Sodium 141 mmol/L (137-145) 03/10/18 05:43 Potassium 3.8 mmol/L (3.6-5.0) 03/10/18 05:43 Chloride 100.5 mmol/L (98-107) 03/10/18 05:43 Carbon Dioxide 26 mmol/L (22-30) 03/10/18 05:43 Anion Gap 18 mmol/L 03/10/18 05:43 BUN 23 mg/dL (7-17) H 03/10/18 05:43 Creatinine 1.2 mg/dL (0.7-1.2) 03/10/18 05:43 Estimated GFR 54 ml/min 03/10/18 05:43 BUN/Creatinine Ratio 19 % 03/10/18 05:43 Glucose 171 mg/dL (65-100) H 03/10/18 05:43 POC Glucose 220 (70-105) H 03/10/18 12:07 Hemoglobin A1c 8.9 % (4-6) H 03/06/18 17:16 Calcium 9.2 mg/dL (8.4-10.2) 03/10/18 05:43 Magnesium 1.70 mg/dL (1.7-2.3) 03/06/18 17:16 Total Bilirubin 0.70 mg/dL (0.1-1.2) 03/07/18 05:35 AST 25 units/L (5-40) 03/07/18 05:35 ALT 30 units/L (7-56) 03/07/18 05:35 Alkaline Phosphatase 136 units/L (35-129) H 03/07/18 05:35 Troponin T < 0.010 ng/mL (0.00-0.029) 03/07/18 05:35 NT-Pro-B Natriuret Pep 01814 pg/mL (0-900) H 03/06/18 17:16 Total Protein 7.5 g/dL (6.3-8.2) 03/07/18 05:35 Albumin 3.8 g/dL (3.9-5) L 03/07/18 05:35 Albumin/Globulin Ratio 1.0 % 03/07/18 05:35 Urine Color Yellow (Yellow) 03/06/18 20:25 Urine Turbidity Clear (Clear) 03/06/18 20:25 Urine pH 6.0 (5.0-7.0) 03/06/18 20:25 Ur Specific [place] 1.005 (1.003-1.030) 03/06/18 20:25 Urine Protein 100 mg/dl mg/dL (Negative) 03/06/18 20:25 Urine Glucose (UA) Neg mg/dL (Negative) 03/06/18 20:25 Urine Ketones Neg mg/dL (Negative) 03/06/18 20:25 Urine Blood Neg (Negative) 03/06/18 20:25 Urine Nitrite Neg (Negative) 03/06/18 20:25 Urine Bilirubin Neg (Negative) 03/06/18 20:25 Urine Urobilinogen < 2.0 mg/dL (<2.0) 03/06/18 20:25 Ur Leukocyte Esterase Neg (Negative) 03/06/18 20:25 Urine WBC (Auto) 1.0 /HPF (0.0-6.0) 03/06/18 20:25 Urine RBC (Auto) 4.0 /HPF (0.0-6.0) 03/06/18 20:25 U Epithel Cells (Auto) 1.0 /HPF (0-13.0) 03/06/18 20:25 Nutrition/Malnutrition Assess - Dietary Evaluation Nutrition/Malnutrition Findings: Nutrition Notes Start: 03/07/18 15:17 Freq: Status: Active Protocol: Document 03/07/18 15:32 RM (Rec: 03/07/18 15:36 RM [id number]) Nutrition Notes Need for Assessment generated from: Education Initial or Follow up Assessment Current Diagnosis Diabetes Hypertension Heart Failure Hyperlipidemia Subjective/Other Information Pt screened for Coumadin/Vit K diet education. Pt stated that she had been previously educated but had not fully understand it. Reviewed Coumadin/Vit K diet education. Gave handout. #1 Nutrition Diagnosis Food and nutrition-related knowledge deficit Etiology incomplete understanding of previous education As Evidenced by Signs and Symptoms pt desire for diet education Nutrition Intervention Teaching Recipient Patient Learning Readiness Good Teaching Methods Discussion Handout Response to Teaching Verbalize understanding Education Handouts Provided Vit K and Medications Barriers to Learning No Barriers RD phone number provided Yes Patient aware of follow up options Yes Goal #1 Adhere to diet Revisit per MD consult or patient Sign Off request:
[2018-03-10] MEDS ORDERED: COUMADIN PO SCH (17:00)
[2018-03-10] MEDS: SINGULAIR PO SCH (21:49)
[2018-03-10] MEDS: LATANOPROST 0.005% OU SCH (21:49)
[2018-03-10] MEDS: APRESOLINE PO SCH (21:49)
[2018-03-10] MEDS: NEURONTIN PO SCH (21:51)
[2018-03-11 04:01] LABS: INR 1.66 (0.87-1.13)
[2018-03-11 04:11] LABS: Calcium 9.3 mg/dL (8.4-10.2)
[2018-03-11] MEDS: APRESOLINE PO SCH ×3 (05:44→22:30)
--- NOTE | 2018-03-11 07:31 | Progress Note ---
Assessment and Plan - Patient Problems (1) Acute on chronic renal insufficiency Current Visit: Yes Status: Acute Plan to address problem: likely secondary to acute cardiorenal syndrome and diuretic effect. Cr ranging around 1.2-1.4mg/dl. volume status is stable, restarted lasix 40mg po qd. cont ARB given stable renal function. avoid nephrotoxins, NSAIDs, IV contrast. (2) Acute exacerbation of CHF (congestive heart failure) Current Visit: Yes Status: Acute Qualifiers: Heart failure type: unspecified Qualified Code(s): I50.9 - Heart failure, unspecified Plan to address problem: cont BB, ARB, loop diuretic. follow cardiology recommendations. (3) Chronic atrial fibrillation Current Visit: Yes Status: Acute Plan to address problem: rate control as per cardiology Subjective Date of service: 03/11/18 Principal diagnosis: JJ, HFrEF Interval history: Patient awake, alert, in no acute respiratory distress, s/p life vest placement Objective - Vital Signs Vital signs: Vital Signs - 12hr 03/10/18 03/10/18 03/10/18 19:37 19:44 21:29 Temperature 98.2 F Pulse Rate 77 108 H Pulse Rate [ 115 H Anterior Bilateral Throughout] Pulse Rate [ Apical] Pulse Rate [ From Monitor] Respiratory 18 Rate Respiratory 18 Rate [Anterior Bilateral Throughout] Blood Pressure 178/99 O2 Sat by Pulse 86 Oximetry 03/10/18 03/10/18 03/10/18 21:30 21:39 21:48 Temperature Pulse Rate 77 Pulse Rate [ 125 H Anterior Bilateral Throughout] Pulse Rate [ Apical] Pulse Rate [ From Monitor] Respiratory Rate Respiratory 20 Rate [Anterior Bilateral Throughout] Blood Pressure 178/99 O2 Sat by Pulse 99 Oximetry 03/10/18 03/10/18 03/10/18 21:49 22:38 23:44 Temperature 98.4 F Pulse Rate 77 100 H Pulse Rate [ Anterior Bilateral Throughout] Pulse Rate [ 77 Apical] Pulse Rate [ 77 From Monitor] Respiratory 18 18 Rate Respiratory Rate [Anterior Bilateral Throughout] Blood Pressure 178/99 140/101 O2 Sat by Pulse 94 90 Oximetry 03/11/18 03/11/18 03/11/18 01:22 04:21 05:44 Temperature 98.1 F Pulse Rate 88 88 Pulse Rate [ Anterior Bilateral Throughout] Pulse Rate [ Apical] Pulse Rate [ From Monitor] Respiratory 18 Rate Respiratory Rate [Anterior Bilateral Throughout] Blood Pressure 138/84 128/93 128/93 O2 Sat by Pulse 99 Oximetry - General Appearance General appearance: well-developed, well-nourished, appears stated age EENT: ATNC, PERRL, mucous membranes moist Neck: no JVD Respiratory: Present: Clear to Ascultation Cardiology: regular, S1S2 Gastrointestinal: normoactive bowel sounds Integumentary: no rash, other (no edema ) Neurologic: no focal deficit, alert and oriented x3, strength 5/5, CN 3-12 intact Psychiatric: mood/affect appropriate, cooperative - Lab 03/07/18 05:35 03/11/18 03:02 Most recent lab results Calcium 9.3 mg/dL (8.4-10.2) 03/11/18 03:02 Magnesium 1.70 mg/dL (1.7-2.3) 03/06/18 17:16 Medications & Allergies - Medications Allergies/Adverse Reactions: Allergies lisinopril Allergy (Verified 03/06/18 16:33) Shortness of Breath Home Medications: Home Medications Medication Instructions Recorded Confirmed Last Taken Type [place]-3/Dha/Epa/Fish Oil [Fish Oil 1,000 mg PO DAILY 08/09/17 08/09/17 08/09/17 History 1,000 mg Softgel] Warfarin [Coumadin] 5 mg PO HS 08/09/17 08/09/17 08/08/17 History glipiZIDE [Glipizide] 10 mg PO HS 08/09/17 08/09/17 08/08/17 History Alphagan P 0.1% 1 drop OU BID 08/10/17 08/10/17 08/09/17 History AtorvaSTATin 40 mg PO DAILY 08/10/17 08/10/17 08/09/17 History Carvedilol [Coreg] 6.25 mg PO BID 08/10/17 08/10/17 08/09/17 History Famotidine 20 mg PO DAILY 08/10/17 08/10/17 08/09/17 History Glipizide 10 mg PO DAILY 08/10/17 08/10/17 08/09/17 History Isosorbide Mononitrate 30 mg PO DAILY 08/10/17 08/10/17 08/09/17 History Latanoprost 0.005% 1 drops OU HS 0708/10/17 08/09/17 History Magnesium Oxide 400 mg PO DAILY 08/10/17 08/10/17 08/09/17 History Montelukast 10 mg PO DAILY 08/10/17 08/10/17 08/09/17 History AtorvaSTATin [Lipitor] 40 mg PO QHS #30 tablet 08/16/17 Unknown Rx Furosemide [Lasix] 80 mg PO DAILY #30 tablet 08/16/17 Unknown Rx Gabapentin [Neurontin] 100 mg PO HS #30 capsule 08/16/17 Unknown Rx ISOSORBIDE MONOnitrate [Imdur ER] 30 mg PO DAILY #30 tablet 08/16/17 Unknown Rx Latanoprost 0.005% 1 drops OU HS bottle 08/16/17 Unknown Rx Losartan [Cozaar] 100 mg PO QDAY #30 tablet 08/16/17 Unknown Rx Metformin HCl 1,000 mg PO HS #30 tablet 08/16/17 Unknown Rx Metoprolol [Lopressor TAB] 50 mg PO BID #60 tablet 08/16/17 Unknown Rx Montelukast [Singulair] 10 mg PO QDAY #30 tablet 08/16/17 Unknown Rx Pantoprazole [Protonix TAB] 40 mg PO QDAY #30 tablet 08/16/17 Unknown Rx Potassium Chloride [K-Dur] 20 meq PO Q12H #30 tablet 08/16/17 Unknown Rx Warfarin [Coumadin] 5 mg PO DAILY@1700 #30 tablet 08/16/17 Unknown Rx glipiZIDE [Glucotrol] 10 mg PO QDDIAB #60 tablet 08/16/17 Unknown Rx Active Medications: Generic Name Dose Route Start Last Admin Trade Name Deric PRN Reason Stop Dose Admin Acetaminophen 650 mg 03/06/18 21:57 Tylenol PO Q4H PRN Pain MILD(1-3)/Fever >100.5/GARCIA Albuterol/Ipratropium 1 ampul 03/07/18 08:00 03/10/18 21:28 Duoneb *Not For Prn Use* IH 1 ampul QIDRT NANCIE Administration Atorvastatin Calcium 40 mg 03/07/18 22:00 03/10/18 21:48 Lipitor PO 40 mg QHS NANCIE Administration Carvedilol 25 mg 03/10/18 11:00 03/10/18 21:48 Coreg PO 25 mg BID NANCIE Administration Dextrose 50 ml 03/06/18 21:57 D50w (25gm) Syringe IV PRN PRN Hypoglycemia Famotidine 20 mg 03/07/18 10:00 03/10/18 11:05 Pepcid PO 20 mg QAM NANCIE Administration Gabapentin 100 mg 03/07/18 00:39 03/10/18 21:51 Neurontin PO 100 mg HS NANCIE Administration Glipizide 10 mg 03/07/18 08:00 03/10/18 11:13 Glucotrol PO 10 mg QDDIAB NANCIE Administration Hydralazine HCl 10 mg 03/07/18 15:30 Apresoline IV Q4H PRN BP >160/100 Hydralazine HCl 10 mg 03/10/18 22:00 03/11/18 05:44 Apresoline PO 10 mg Q8HR NANCIE Administration Hydromorphone HCl 0.5 mg 03/06/18 21:57 Dilaudid IV Q3H PRN Pain , Severe (7-10) Insulin Human Lispro 0 unit 03/07/18 07:30 03/10/18 21:50 Humalog SUB-Q 2 unit ACHS NANCIE Administration Protocol Isosorbide Mononitrate 30 mg 03/07/18 10:00 03/10/18 11:04 Imdur PO 30 mg DAILY NANCIE Administration Latanoprost 1 drops 03/07/18 22:00 03/10/18 21:49 Latanoprost 0.005% OU 1 drops HS NANCIE Administration Losartan Potassium 100 mg 03/07/18 10:00 03/10/18 11:04 Cozaar PO 100 mg QDAY NANCIE Administration Magnesium Oxide 400 mg 03/07/18 10:00 03/10/18 11:12 Mag-Ox PO 400 mg DAILY NANCIE Administration Miscellaneous Medication 1 drop 03/07/18 10:00 03/10/18 21:51 Alphagan P 0.1% OU Not Given BID NANCIE Montelukast Sodium 10 mg 03/07/18 18:00 03/10/18 21:49 Singulair PO 10 mg 1800 NANCIE Administration Ondansetron HCl 4 mg 03/06/18 21:57 Zofran IV Q8H PRN Nausea And Vomiting Potassium Chloride 20 meq 03/08/18 10:00 03/10/18 21:49 K-Dur PO 20 meq BID NANCIE Administration Sodium Chloride 10 ml 03/06/18 22:00 03/10/18 21:51 Sodium Chloride Flush Syringe 10 Ml IV 10 ml BID NANCIE Administration Sodium Chloride 10 ml 03/06/18 21:57 Sodium Chloride Flush Syringe 10 Ml IV PRN PRN LINE FLUSH Warfarin Sodium 1 mg 03/10/18 17:00 03/10/18 17:23 Coumadin PO 1 mg DAILY@1700 NANCIE Administration
[2018-03-11] MEDS: HumaLOG SUB-Q SCH ×4 (07:54→22:31)
[2018-03-11] MEDS: DUONEB *Not for PRN Use IH SCH ×4 (09:50→19:24)
[2018-03-11] MEDS: GLUCOTROL PO SCH (10:39)
[2018-03-11] MEDS: ALPHAGAN P 0.1% OU SCH ×2 (10:39→22:27)
[2018-03-11] MEDS: COREG PO SCH ×2 (10:40→22:31)
[2018-03-11] MEDS: COZAAR PO SCH (10:41)
[2018-03-11] MEDS: K-DUR PO SCH ×2 (10:42→22:29)
[2018-03-11] MEDS: IMDUR PO SCH (10:42)
[2018-03-11] MEDS: SODIUM CHLORIDE FLUSH SYRINGE 10 ML IV SCH ×2 (10:43→22:30)
[2018-03-11] MEDS: PEPCID PO SCH (10:43)
[2018-03-11] MEDS: MAG-OX PO SCH (10:43)
--- NOTE | 2018-03-11 11:21 | Progress Note ---
Assessment and Plan Assessment and plan: Patient 67-year-old woman presents with orthopnea, PND and shortness of breath. Hospital ourse The patient has been diuresed, continued diuresis She was seen by cardiology, who agreed with the plan CHF EF 15%, meds been optimized by cardiology Atrial fibrillation on warfarin; continue rate control medications, -INR was supratherapeutic, therefore warfarin was held for several days, then was restarted when INR was at goal. -Blood pressure medications were optimized - K was repleted -Cr bumped up after lasix, therefore it was held x 2 days, cr improved, dw Dr Koo, lasix restarted now -has received lifevest dw with her PCP at [facility] at [phone] Diagnoses Acute on chronic systolic CHF Atrial fibrillation with hypercoagulable state Coagulopathy due to warfarin Hypertension type 2 diabetes GERD Glaucoma Hypertensive urgency Hypokalemia JJ upon CKD stage 3/ vasomotor nephropathy Dc in 1-2 days History Interval history: Review of systems Constitutional: No fevers, no malaise, no joint pains CVS: Orthopnea is improving GI: No abdominal pain, no diarrhea, no vomiting, no constipation Respiratory: no wheezing, no coughing Hospitalist Physical - Physical exam Narrative exam: General.: Appears well, no distress, nontoxic HEENT: Moist mucous membranes, extraocular muscles intact, no lymphadenopathy Neck: supple Cardiac: S1-S2 heard Lungs: crackles in bases Abdomen: soft , nontender, nondistended, bowel sounds positive Extremities: no edema clubbing or cyanosis Skin: no rash or lesions Neurologic: no gross focal deficits Psych: calm, and cooperative - Constitutional Vitals: Temp Pulse Resp BP Pulse Ox 98.1 F 94 H 18 164/101 100 03/11/18 04:21 03/11/18 10:42 03/11/18 10:00 03/11/18 10:42 03/11/18 10:00 General appearance: Present: mild distress Results - Labs CBC & Chem 7: 03/07/18 05:35 03/11/18 03:02 Labs: Laboratory Last Values WBC 5.1 K/mm3 (4.5-11.0) 03/07/18 05:35 RBC 4.76 M/mm3 (3.65-5.03) 03/07/18 05:35 Hgb 11.9 gm/dl (10.1-14.3) 03/07/18 05:35 Hct 36.4 % (30.3-42.9) 03/07/18 05:35 MCV 76 fl (79-97) L 03/07/18 05:35 MCH 25 pg (28-32) L 03/07/18 05:35 MCHC 33 % (30-34) 03/07/18 05:35 RDW 17.7 % (13.2-15.2) H 03/07/18 05:35 Plt Count 271 K/mm3 (140-440) 03/07/18 05:35 Lymph % (Auto) 34.8 % (13.4-35.0) 03/07/18 05:35 Kleberg % (Auto) 12.8 % (0.0-7.3) H 03/07/18 05:35 Eos % (Auto) 1.7 % (0.0-4.3) 03/07/18 05:35 Baso % (Auto) 1.1 % (0.0-1.8) 03/07/18 05:35 Lymph # 1.8 K/mm3 (1.2-5.4) 03/07/18 05:35 Kleberg # 0.7 K/mm3 (0.0-0.8) 03/07/18 05:35 Eos # 0.1 K/mm3 (0.0-0.4) 03/07/18 05:35 Baso # 0.1 K/mm3 (0.0-0.1) 03/07/18 05:35 Seg Neutrophils % 49.6 % (40.0-70.0) 03/07/18 05:35 Seg Neutrophils # 2.5 K/mm3 (1.8-7.7) 03/07/18 05:35 PT 20.0 Sec. (12.2-14.9) H 03/11/18 03:02 INR 1.66 (0.87-1.13) H 03/11/18 03:02 Sodium 142 mmol/L (137-145) 03/11/18 03:02 Potassium 4.5 mmol/L (3.6-5.0) 03/11/18 03:02 Chloride 103.4 mmol/L (98-107) 03/11/18 03:02 Carbon Dioxide 25 mmol/L (22-30) 03/11/18 03:02 Anion Gap 18 mmol/L 03/11/18 03:02 BUN 26 mg/dL (7-17) H 03/11/18 03:02 Creatinine 1.4 mg/dL (0.7-1.2) H 03/11/18 03:02 Estimated GFR 45 ml/min 03/11/18 03:02 BUN/Creatinine Ratio 19 % 03/11/18 03:02 Glucose 142 mg/dL (65-100) H 03/11/18 03:02 POC Glucose 134 (70-105) H 03/11/18 06:14 Hemoglobin A1c 8.9 % (4-6) H 03/06/18 17:16 Calcium 9.3 mg/dL (8.4-10.2) 03/11/18 03:02 Magnesium 1.70 mg/dL (1.7-2.3) 03/06/18 17:16 Total Bilirubin 0.70 mg/dL (0.1-1.2) 03/07/18 05:35 AST 25 units/L (5-40) 03/07/18 05:35 ALT 30 units/L (7-56) 03/07/18 05:35 Alkaline Phosphatase 136 units/L (35-129) H 03/07/18 05:35 Troponin T < 0.010 ng/mL (0.00-0.029) 03/07/18 05:35 NT-Pro-B Natriuret Pep 75272 pg/mL (0-900) H 03/06/18 17:16 Total Protein 7.5 g/dL (6.3-8.2) 03/07/18 05:35 Albumin 3.8 g/dL (3.9-5) L 03/07/18 05:35 Albumin/Globulin Ratio 1.0 % 03/07/18 05:35 Urine Color Yellow (Yellow) 03/06/18 20:25 Urine Turbidity Clear (Clear) 03/06/18 20:25 Urine pH 6.0 (5.0-7.0) 03/06/18 20:25 Ur Specific [place] 1.005 (1.003-1.030) 03/06/18 20:25 Urine Protein 100 mg/dl mg/dL (Negative) 03/06/18 20:25 Urine Glucose (UA) Neg mg/dL (Negative) 03/06/18 20:25 Urine Ketones Neg mg/dL (Negative) 03/06/18 20:25 Urine Blood Neg (Negative) 03/06/18 20:25 Urine Nitrite Neg (Negative) 03/06/18 20:25 Urine Bilirubin Neg (Negative) 03/06/18 20:25 Urine Urobilinogen < 2.0 mg/dL (<2.0) 03/06/18 20:25 Ur Leukocyte Esterase Neg (Negative) 03/06/18 20:25 Urine WBC (Auto) 1.0 /HPF (0.0-6.0) 03/06/18 20:25 Urine RBC (Auto) 4.0 /HPF (0.0-6.0) 03/06/18 20:25 U Epithel Cells (Auto) 1.0 /HPF (0-13.0) 03/06/18 20:25 Nutrition/Malnutrition Assess - Dietary Evaluation Nutrition/Malnutrition Findings: Nutrition Notes Start: 03/07/18 15:17 Freq: Status: Active Protocol: Document 03/07/18 15:32 RM (Rec: 03/07/18 15:36 RM [id number]) Nutrition Notes Need for Assessment generated from: Education Initial or Follow up Assessment Current Diagnosis Diabetes Hypertension Heart Failure Hyperlipidemia Subjective/Other Information Pt screened for Coumadin/Vit K diet education. Pt stated that she had been previously educated but had not fully understand it. Reviewed Coumadin/Vit K diet education. Gave handout. #1 Nutrition Diagnosis Food and nutrition-related knowledge deficit Etiology incomplete understanding of previous education As Evidenced by Signs and Symptoms pt desire for diet education Nutrition Intervention Teaching Recipient Patient Learning Readiness Good Teaching Methods Discussion Handout Response to Teaching Verbalize understanding Education Handouts Provided Vit K and Medications Barriers to Learning No Barriers RD phone number provided Yes Patient aware of follow up options Yes Goal #1 Adhere to diet Revisit per MD consult or patient Sign Off request:
[2018-03-11] MEDS: LASIX PO SCH (13:16)
[2018-03-11] MEDS: SINGULAIR PO SCH (16:59)
[2018-03-11] MEDS ORDERED: COUMADIN PO SCH (17:00)
--- NOTE | 2018-03-11 18:44 | Progress Note ---
Assessment and Plan - Patient Problems (1) Acute exacerbation of CHF (congestive heart failure) Current Visit: Yes Status: Acute Qualifiers: Heart failure type: unspecified Qualified Code(s): I50.9 - Heart failure, unspecified (2) Hypertensive emergency Current Visit: Yes Status: Acute (3) Chronic a-fib Current Visit: Yes Status: Chronic (4) HLD (hyperlipidemia) Current Visit: Yes Status: Chronic Qualifiers: Hyperlipidemia type: mixed hyperlipidemia Qualified Code(s): E78.2 - Mixed hyperlipidemia (5) HTN (hypertension) Current Visit: Yes Status: Chronic Qualifiers: Hypertension type: essential hypertension Qualified Code(s): I10 - Essential (primary) hypertension (6) T2DM (type 2 diabetes mellitus) Current Visit: Yes Status: Chronic Qualifiers: 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 BETTER,,,COUGHING Objective Vital Signs Temp Pulse Pulse Pulse Pulse Resp Resp 03/11/18 16:36 97.6 F 98 H 22 03/11/18 16:33 97.6 F 22 03/11/18 16:32 107 H 03/11/18 15:27 85 18 03/11/18 15:17 90 18 03/11/18 14:00 98 H 03/11/18 13:14 116 H 22 03/11/18 13:12 51 L 03/11/18 12:26 81 18 03/11/18 12:16 75 18 03/11/18 10:42 94 H 03/11/18 10:41 94 H 03/11/18 10:40 94 H 03/11/18 10:00 96 H 18 03/11/18 09:50 100 H 18 03/11/18 09:49 74 03/11/18 05:44 88 03/11/18 04:21 98.1 F 88 18 03/11/18 01:22 03/10/18 23:44 98.4 F 100 H 18 03/10/18 22:38 77 77 18 03/10/18 21:49 77 03/10/18 21:48 77 03/10/18 21:39 125 H 20 03/10/18 21:30 03/10/18 21:29 115 H 18 03/10/18 19:44 108 H 03/10/18 19:37 98.2 F 77 18 BP BP Pulse Ox 03/11/18 16:36 161/103 91 03/11/18 16:33 03/11/18 16:32 91 03/11/18 15:27 03/11/18 15:17 03/11/18 14:00 161/103 03/11/18 13:14 143/98 100 03/11/18 13:12 143/98 99 03/11/18 12:26 03/11/18 12:16 03/11/18 10:42 164/101 03/11/18 10:41 164/101 03/11/18 10:40 164/101 03/11/18 10:00 100 03/11/18 09:50 03/11/18 09:49 164/101 98 03/11/18 05:44 128/93 03/11/18 04:21 128/93 99 03/11/18 01:22 138/84 03/10/18 23:44 140/101 90 03/10/18 22:38 94 03/10/18 21:49 178/99 03/10/18 21:48 178/99 03/10/18 21:39 03/10/18 21:30 99 03/10/18 21:29 03/10/18 19:44 03/10/18 19:37 178/99 86 - Physical Examination General: No Apparent Distress HEENT: Positive: PERRL Neck: Positive: neck supple Cardiac: Positive: Reg Rate and Rhythm Lungs: Positive: Rales (L. BASE) Neuro: Positive: Grossly Intact Abdomen: Positive: Soft Extremities: Absent: edema - Labs and Meds Coagulation 03/11/18 Range/Units 03:02 PT 20.0 H (12.2-14.9) Sec. INR 1.66 H (0.87-1.13) Comprehensive Metabolic Panel 03/11/18 Range/Units 03:02 Sodium 142 (137-145) mmol/L Potassium 4.5 (3.6-5.0) mmol/L Chloride 103.4 (98-107) mmol/L Carbon Dioxide 25 (22-30) mmol/L BUN 26 H (7-17) mg/dL Creatinine 1.4 H (0.7-1.2) mg/dL Glucose 142 H (65-100) mg/dL Calcium 9.3 (8.4-10.2) mg/dL - Imaging and Cardiology EKG: report reviewed (A fib 68/min LVH )
[2018-03-11] MEDS: LATANOPROST 0.005% OU SCH (22:28)
[2018-03-11] MEDS: NEURONTIN PO SCH (22:29)
[2018-03-12 05:51] LABS: INR 1.44 (0.87-1.13)
[2018-03-12 05:59] LABS: Calcium 9.1 mg/dL (8.4-10.2)
[2018-03-12] MEDS: APRESOLINE PO SCH ×3 (06:19→21:08)
[2018-03-12] MEDS: HumaLOG SUB-Q SCH ×4 (07:30→21:41)
[2018-03-12] MEDS: MAG-OX PO SCH (09:30)
[2018-03-12] MEDS: GLUCOTROL PO SCH (09:30)
[2018-03-12] MEDS: COZAAR PO SCH (09:30)
[2018-03-12] MEDS: PEPCID PO SCH (09:31)
[2018-03-12] MEDS: IMDUR PO SCH (09:31)
[2018-03-12] MEDS: K-DUR PO SCH ×2 (09:31→21:09)
[2018-03-12] MEDS: LASIX PO SCH (09:31)
[2018-03-12] MEDS: COREG PO SCH ×2 (09:32→21:09)
[2018-03-12] MEDS: ALPHAGAN P 0.1% OU SCH ×2 (09:35→21:08)
[2018-03-12] MEDS: DUONEB *Not for PRN Use IH SCH ×4 (09:48→20:13)
--- NOTE | 2018-03-12 10:10 | Progress Note ---
Addendum entered and electronically signed by TIANA WILDER MD 03/12/18 18:10: Patient continues to report progressive dyspnea both on exertion and at rest. W e will add intravenous milrinone for aggressive heart failure management. In addition due to worsening heart failure we will recommend a right and left heart catheterization. Risks and benefits discussed with the patient accepts to proceed with cardiac catheterization in the a.m. Coumadin will be placed on hold, and an INR check will be done prior to anticipated cardiac catheterization. Original Note: Assessment and Plan Shortness of breath Acute renal failure Acute on chronic systolic heart failure Non-ischemic cardiomyopathy History of coronary angiography in [place] - normal per patient MPI this admission showing no ischemia LVEF 15-20% this admission Atrial fibrillation on warfarin for oral anticoagulation INR > 4 on presentation NSVT on telemetry -pt remained asymptomatic lifevest placed Recommendations: Advised sodium/fluid restriction. Continue medical therapy for nonischemic cardiomyopathy and persistent atrial fibrillation. Subjective Date of service: 03/12/18 Principal diagnosis: JJ, HFrEF Interval history: Patient complains of shortness of breath. Admits to eating lots of ice. Objective Vital Signs Temp Pulse Pulse Resp Resp BP BP 03/12/18 09:58 98 H 18 03/12/18 09:52 03/12/18 09:48 93 H 18 03/12/18 09:32 93 H 03/12/18 08:03 97.6 F 107 H 20 148/103 03/12/18 06:19 95 H 153/105 03/12/18 04:50 97.6 F 88 18 153/105 03/12/18 01:07 94 H 03/12/18 01:03 140/96 03/11/18 23:17 97.5 F L 141 H 22 169/122 03/11/18 22:31 114 H 146/119 03/11/18 22:30 114 H 146/119 03/11/18 20:22 97.5 F L 104 H 18 146/119 03/11/18 19:30 120 H 18 03/11/18 19:25 03/11/18 19:24 114 H 18 03/11/18 16:36 97.6 F 98 H 22 161/103 03/11/18 16:33 97.6 F 22 03/11/18 16:32 107 H 03/11/18 15:27 85 18 03/11/18 15:17 90 18 03/11/18 14:00 98 H 161/103 03/11/18 13:14 116 H 22 143/98 03/11/18 13:12 51 L 143/98 03/11/18 12:26 81 18 03/11/18 12:16 75 18 03/11/18 10:42 94 H 164/101 03/11/18 10:41 94 H 164/101 03/11/18 10:40 94 H 164/101 Pulse Ox 03/12/18 09:58 03/12/18 09:52 95 03/12/18 09:48 03/12/18 09:32 03/12/18 08:03 95 03/12/18 06:19 03/12/18 04:50 96 03/12/18 01:07 03/12/18 01:03 03/11/18 23:17 95 03/11/18 22:31 03/11/18 22:30 03/11/18 20:22 90 03/11/18 19:30 03/11/18 19:25 99 03/11/18 19:24 03/11/18 16:36 91 03/11/18 16:33 03/11/18 16:32 91 03/11/18 15:27 03/11/18 15:17 03/11/18 14:00 03/11/18 13:14 100 03/11/18 13:12 99 03/11/18 12:26 03/11/18 12:16 03/11/18 10:42 03/11/18 10:41 03/11/18 10:40 - Physical Examination General: No Apparent Distress HEENT: Positive: PERRL Neck: Positive: trachea midline Cardiac: Positive: irregularly irregular Lungs: Positive: Decreased Breath Sounds Neuro: Positive: Grossly Intact Abdomen: Positive: Soft Extremities: Absent: edema - Labs and Meds Coagulation 03/12/18 Range/Units 05:16 PT 18.0 H (12.2-14.9) Sec. INR 1.44 H (0.87-1.13) Comprehensive Metabolic Panel 03/12/18 Range/Units 05:19 Sodium 139 (137-145) mmol/L Potassium 4.4 (3.6-5.0) mmol/L Chloride 103.5 (98-107) mmol/L Carbon Dioxide 24 (22-30) mmol/L BUN 28 H (7-17) mg/dL Creatinine 1.3 H (0.7-1.2) mg/dL Glucose 136 H (65-100) mg/dL Calcium 9.1 (8.4-10.2) mg/dL
[2018-03-12] MEDS: SODIUM CHLORIDE FLUSH SYRINGE 10 ML IV SCH ×2 (10:30→21:14)
--- NOTE | 2018-03-12 10:44 | Discharge Summary ---
Providers - Providers Date of Admission: 03/06/18 18:42 Attending physician: POORNIMA QUESADA MD 03/06/18 21:57 Consult to Physician [CONS] Routine Comment: Consulting Provider: TIANA WILDER Physician Instructions: Reason For Exam: CHF exacerbation 03/09/18 14:34 Consult to Physician [CONS] Routine Comment: Consulting Provider: JOEY HAYS Physician Instructions: Reason For Exam: jj upon ckd Primary care physician: JUN DIAZ Hospitalization Condition: Fair Hospital course: Patient 67-year-old woman presents with orthopnea, PND and shortness of breath. Hospital ourse The patient has been diuresed, continued diuresis admits to poor compliance with water restriction, was counseled on improved adherence She was seen by cardiology, who agreed with the plan CHF EF 15%, meds been optimized by cardiology Atrial fibrillation on warfarin; continue rate control medications, -INR was supratherapeutic, therefore warfarin was held for several days, then was restarted when INR was at goal. -Blood pressure medications were optimized - K was repleted -Cr bumped up after lasix, therefore it was held x 2 days, cr improved, dw Dr Koo, lasix restarted now -has received lifevest dw with her PCP at [facility] at [phone] Diagnoses Acute on chronic systolic CHF Atrial fibrillation with hypercoagulable state Coagulopathy due to warfarin Hypertension type 2 diabetes GERD Glaucoma Hypertensive urgency Hypokalemia JJ upon CKD stage 3/ vasomotor nephropathy NSVT Non adherence to water restriction Dc in 1-2 days Disposition: DC-01 TO HOME OR SELFCARE Time spent for discharge: 33 mins Core Measure Documentation - Palliative Care Palliative Care/ Comfort Measures: Not Applicable - Core Measures Any of the following diagnoses?: heart failure - Heart Failure Discharge Requirements PB/ARB for LVSD if EF <40%: Yes Beta radha at discharge: Yes Exam - Constitutional Vitals: Temp Pulse Resp BP Pulse Ox 97.6 F 98 H 18 148/103 95 03/12/18 08:03 03/12/18 09:58 03/12/18 09:58 03/12/18 08:03 03/12/18 09:52 General appearance: Present: no acute distress, well-nourished - EENT Eyes: Present: PERRL ENT: hearing intact, clear oral mucosa - Neck Neck: Present: supple, normal ROM - Respiratory Respiratory effort: normal Respiratory: bilateral: CTA - Cardiovascular Heart Sounds: Present: S1 & S2. Absent: rub, click - Extremities Extremities: pulses symmetrical, No edema Peripheral Pulses: within normal limits - Abdominal General gastrointestinal: Present: soft, non-tender, non-distended, normal bowel sounds Female genitourinary: Present: normal - Integumentary Integumentary: Present: clear, warm, dry - Musculoskeletal Musculoskeletal: gait normal, strength equal bilaterally - Psychiatric Psychiatric: appropriate mood/affect, intact judgment & insight - Neurologic Neurologic: CNII-XII intact, moves all extremities Plan Follow up with: JUN DIAZ MD [Primary Care Provider] - 3-5 Days Forms: Warfarin Discharge Instruction
--- NOTE | 2018-03-12 11:16 | Progress Note ---
Assessment and Plan - Patient Problems (1) Acute on chronic renal insufficiency Current Visit: Yes Status: Acute Plan to address problem: likely secondary to acute cardiorenal syndrome and diuretic effect. Cr ranging around 1.2-1.4mg/dl. volume status is stable, restarted lasix 40mg po qd. cont ARB given stable renal function. avoid nephrotoxins, NSAIDs, IV contrast. (2) Acute exacerbation of CHF (congestive heart failure) Current Visit: Yes Status: Acute Qualifiers: Qualified Code(s): I50.9 - Heart failure, unspecified Plan to address problem: cont BB, ARB, loop diuretic. follow cardiology recommendations. (3) Chronic atrial fibrillation Current Visit: Yes Status: Acute Plan to address problem: rate control as per cardiology Subjective Date of service: 03/12/18 Principal diagnosis: JJ, HFrEF Interval history: Patient awake, alert, in no acute respiratory distress, s/p life vest placement Objective - Vital Signs Vital signs: Vital Signs - 12hr 03/11/18 03/12/18 03/12/18 23:17 01:03 01:07 Temperature 97.5 F L Pulse Rate 141 H 94 H Pulse Rate [ Anterior Bilateral Throughout] Respiratory 22 Rate Respiratory Rate [Anterior Bilateral Throughout] Blood Pressure 169/122 140/96 O2 Sat by Pulse 95 Oximetry 03/12/18 03/12/18 03/12/18 04:50 06:19 08:03 Temperature 97.6 F 97.6 F Pulse Rate 88 95 H 107 H Pulse Rate [ Anterior Bilateral Throughout] Respiratory 18 20 Rate Respiratory Rate [Anterior Bilateral Throughout] Blood Pressure 153/105 153/105 148/103 O2 Sat by Pulse 96 95 Oximetry 03/12/18 03/12/18 03/12/18 09:32 09:48 09:52 Temperature Pulse Rate 93 H Pulse Rate [ 93 H Anterior Bilateral Throughout] Respiratory Rate Respiratory 18 Rate [Anterior Bilateral Throughout] Blood Pressure O2 Sat by Pulse 95 Oximetry 03/12/18 09:58 Temperature Pulse Rate Pulse Rate [ 98 H Anterior Bilateral Throughout] Respiratory Rate Respiratory 18 Rate [Anterior Bilateral Throughout] Blood Pressure O2 Sat by Pulse Oximetry - General Appearance General appearance: well-developed, well-nourished, appears stated age EENT: ATNC, PERRL, mucous membranes moist Neck: no JVD Respiratory: Present: Clear to Ascultation Cardiology: regular, S1S2 Gastrointestinal: normoactive bowel sounds Integumentary: no rash, other (no edema ) Neurologic: no focal deficit, alert and oriented x3, strength 5/5, CN 3-12 intact Psychiatric: mood/affect appropriate, cooperative - Lab 03/07/18 05:35 03/12/18 05:19 Most recent lab results Calcium 9.1 mg/dL (8.4-10.2) 03/12/18 05:19 Magnesium 1.70 mg/dL (1.7-2.3) 03/06/18 17:16 Medications & Allergies - Medications Allergies/Adverse Reactions: Allergies lisinopril Allergy (Verified 03/06/18 16:33) Shortness of Breath Home Medications: Home Medications Medication Instructions Recorded Confirmed Last Taken Type [place]-3/Dha/Epa/Fish Oil [Fish Oil 1,000 mg PO DAILY 08/09/17 03/12/18 08/09/17 History 1,000 mg Softgel] Alphagan P 0.1% 1 drop OU BID 08/10/17 03/12/18 08/09/17 History AtorvaSTATin 40 mg PO DAILY 08/10/17 03/12/18 08/09/17 History Magnesium Oxide 400 mg PO DAILY 08/10/17 03/12/18 08/09/17 History Metformin HCl 1,000 mg PO HS #30 tablet 08/16/17 03/12/18 Unknown Rx Pantoprazole [Protonix TAB] 40 mg PO QDAY #30 tablet 08/16/17 03/12/18 Unknown Rx Carvedilol [Coreg] 25 mg PO BID #60 tablet 03/12/18 Unknown Rx Furosemide [Lasix TAB] 40 mg PO QDAY #30 tablet 03/12/18 Unknown Rx Gabapentin [Neurontin] 100 mg PO HS #30 capsule 03/12/18 Unknown Rx ISOSORBIDE MONOnitrate [Imdur ER] 30 mg PO DAILY #30 tablet 03/12/18 Unknown Rx Latanoprost 0.005% 1 drops OU HS #1 bottle 03/12/18 Unknown Rx Losartan [Cozaar] 100 mg PO QDAY #30 tablet 03/12/18 Unknown Rx Montelukast [Singulair] 10 mg PO 1800 #30 tablet 03/12/18 Unknown Rx Potassium Chloride [K-Dur] 20 meq PO BID 30 Days tablet 03/12/18 Unknown Rx Warfarin [Coumadin] 2 mg PO DAILY@1700 #30 tablet 03/12/18 Unknown Rx glipiZIDE [Glucotrol] 10 mg PO QDDIAB #30 tablet 03/12/18 Unknown Rx hydrALAZINE [Apresoline TAB] 50 mg PO Q8HR #90 tablet 03/12/18 Unknown Rx Active Medications: Generic Name Dose Route Start Last Admin Trade Name Freq PRN Reason Stop Dose Admin Acetaminophen 650 mg 03/06/18 21:57 Tylenol PO Q4H PRN Pain MILD(1-3)/Fever >100.5/GARCIA Albuterol/Ipratropium 1 ampul 03/07/18 08:00 03/12/18 09:48 Duoneb *Not For Prn Use* IH 1 ampul QIDRT NANCIE Administration Atorvastatin Calcium 40 mg 03/07/18 22:00 03/11/18 22:29 Lipitor PO 40 mg QHS NANCIE Administration Carvedilol 25 mg 03/10/18 11:00 03/12/18 09:32 Coreg PO 25 mg BID NANCIE Administration Dextrose 50 ml 03/06/18 21:57 D50w (25gm) Syringe IV PRN PRN Hypoglycemia Famotidine 20 mg 03/07/18 10:00 03/12/18 09:31 Pepcid PO 20 mg QAM NANCIE Administration Furosemide 40 mg 03/11/18 10:00 03/12/18 09:31 Lasix PO 40 mg QDAY NANCIE Administration Gabapentin 100 mg 03/07/18 00:39 03/11/18 22:29 Neurontin PO 100 mg HS NANCIE Administration Glipizide 10 mg 03/07/18 08:00 03/12/18 09:30 Glucotrol PO 10 mg QDDIAB NANCIE Administration Hydralazine HCl 50 mg 03/11/18 22:00 03/12/18 06:19 Apresoline PO 50 mg Q8HR NANCIE Administration Hydromorphone HCl 0.5 mg 03/06/18 21:57 Dilaudid IV Q3H PRN Pain , Severe (7-10) Insulin Human Lispro 0 unit 03/07/18 07:30 03/12/18 07:30 Humalog SUB-Q Not Given ACHS NANCIE Protocol Isosorbide Mononitrate 30 mg 03/07/18 10:00 03/12/18 09:31 Imdur PO 30 mg DAILY NANCIE Administration Latanoprost 1 drops 03/07/18 22:00 03/11/18 22:28 Latanoprost 0.005% OU 1 drops HS NANCIE Administration Losartan Potassium 100 mg 03/07/18 10:00 03/12/18 09:30 Cozaar PO 100 mg QDAY NANCIE Administration Magnesium Oxide 400 mg 03/07/18 10:00 03/12/18 09:30 Mag-Ox PO 400 mg DAILY NANCIE Administration Miscellaneous Medication 1 drop 03/07/18 10:00 03/12/18 09:35 Alphagan P 0.1% OU 1 drop BID NANCIE Administration Montelukast Sodium 10 mg 03/07/18 18:00 03/11/18 16:59 Singulair PO 10 mg 1800 NANCIE Administration Ondansetron HCl 4 mg 03/06/18 21:57 Zofran IV Q8H PRN Nausea And Vomiting Potassium Chloride 20 meq 03/08/18 10:00 03/12/18 09:31 K-Dur PO 20 meq BID NANCIE Administration Sodium Chloride 10 ml 03/06/18 22:00 03/11/18 22:30 Sodium Chloride Flush Syringe 10 Ml IV 10 ml BID NANCIE Administration Sodium Chloride 10 ml 03/06/18 21:57 03/12/18 09:33 Sodium Chloride Flush Syringe 10 Ml IV 10 ml PRN PRN Administration LINE FLUSH Warfarin Sodium 4 mg 03/12/18 17:00 Coumadin PO DAILY@1700 [facility]
[2018-03-12] MEDS ORDERED: MILRINONE-D5W 20 MG/100 ML 20 MG/100 ML BAG IV SCH (13:00)
--- NOTE | 2018-03-12 13:20 | Progress Note ---
Assessment and Plan Assessment and plan: Patient 67-year-old woman presents with orthopnea, PND and shortness of breath. Hospital course The patient has been diuresed, continued diuresis She was seen by cardiology, who agreed with the plan CHF EF 15%, meds been optimized by cardiology Atrial fibrillation on warfarin; continue rate control medications, -INR was supratherapeutic, therefore warfarin was held for several days, then was restarted when INR was at goal. -Blood pressure medications were optimized - K was repleted -Cr bumped up after lasix, therefore it was held x 2 days, cr improved, dw Dr Koo, lasix restarted now -has received lifevest -resp status worse today, started on milrinone drip 2/ dw with her PCP at [facility] at [phone] Diagnoses Acute on chronic systolic CHF Atrial fibrillation with hypercoagulable state Coagulopathy due to warfarin Hypertension type 2 diabetes GERD Glaucoma Hypertensive urgency Hypokalemia JJ upon CKD stage 3/ vasomotor nephropathy Dc in 1-2 days History Interval history: Review of systems Constitutional: No fevers, no malaise, no joint pains CVS: Orthopnea is worse, c/o sob and YAÑEZ, and is hypoxic GI: No abdominal pain, no diarrhea, no vomiting, no constipation Respiratory: no wheezing, no coughing Hospitalist Physical - Physical exam Narrative exam: General.: moderate resp distress HEENT: Moist mucous membranes, extraocular muscles intact, no lymphadenopathy Neck: supple Cardiac: S1-S2 heard Lungs: crackles in bases Abdomen: soft , nontender, nondistended, bowel sounds positive Extremities: no edema clubbing or cyanosis Skin: no rash or lesions Neurologic: no gross focal deficits Psych: calm, and cooperative - Constitutional Vitals: Temp Pulse Resp BP Pulse Ox 97.4 F L 90 20 161/106 93 03/12/18 11:52 03/12/18 11:51 03/12/18 11:51 03/12/18 11:51 03/12/18 11:51 General appearance: Present: no acute distress, well-nourished Results - Labs CBC & Chem 7: 03/07/18 05:35 03/12/18 05:19 Labs: Laboratory Last Values WBC 5.1 K/mm3 (4.5-11.0) 03/07/18 05:35 RBC 4.76 M/mm3 (3.65-5.03) 03/07/18 05:35 Hgb 11.9 gm/dl (10.1-14.3) 03/07/18 05:35 Hct 36.4 % (30.3-42.9) 03/07/18 05:35 MCV 76 fl (79-97) L 03/07/18 05:35 MCH 25 pg (28-32) L 03/07/18 05:35 MCHC 33 % (30-34) 03/07/18 05:35 RDW 17.7 % (13.2-15.2) H 03/07/18 05:35 Plt Count 271 K/mm3 (140-440) 03/07/18 05:35 Lymph % (Auto) 34.8 % (13.4-35.0) 03/07/18 05:35 [place] % (Auto) 12.8 % (0.0-7.3) H 03/07/18 05:35 Eos % (Auto) 1.7 % (0.0-4.3) 03/07/18 05:35 Baso % (Auto) 1.1 % (0.0-1.8) 03/07/18 05:35 Lymph # 1.8 K/mm3 (1.2-5.4) 03/07/18 05:35 [place] # 0.7 K/mm3 (0.0-0.8) 03/07/18 05:35 Eos # 0.1 K/mm3 (0.0-0.4) 03/07/18 05:35 Baso # 0.1 K/mm3 (0.0-0.1) 03/07/18 05:35 Seg Neutrophils % 49.6 % (40.0-70.0) 03/07/18 05:35 Seg Neutrophils # 2.5 K/mm3 (1.8-7.7) 03/07/18 05:35 PT 18.0 Sec. (12.2-14.9) H 03/12/18 05:16 INR 1.44 (0.87-1.13) H 03/12/18 05:16 Sodium 139 mmol/L (137-145) 03/12/18 05:19 Potassium 4.4 mmol/L (3.6-5.0) 03/12/18 05:19 Chloride 103.5 mmol/L (98-107) 03/12/18 05:19 Carbon Dioxide 24 mmol/L (22-30) 03/12/18 05:19 Anion Gap 16 mmol/L 03/12/18 05:19 BUN 28 mg/dL (7-17) H 03/12/18 05:19 Creatinine 1.3 mg/dL (0.7-1.2) H 03/12/18 05:19 Estimated GFR 49 ml/min 03/12/18 05:19 BUN/Creatinine Ratio 22 % 03/12/18 05:19 Glucose 136 mg/dL (65-100) H 03/12/18 05:19 POC Glucose 138 (70-105) H 03/12/18 11:51 Hemoglobin A1c 8.9 % (4-6) H 03/06/18 17:16 Calcium 9.1 mg/dL (8.4-10.2) 03/12/18 05:19 Magnesium 1.70 mg/dL (1.7-2.3) 03/06/18 17:16 Total Bilirubin 0.70 mg/dL (0.1-1.2) 03/07/18 05:35 AST 25 units/L (5-40) 03/07/18 05:35 ALT 30 units/L (7-56) 03/07/18 05:35 Alkaline Phosphatase 136 units/L (35-129) H 03/07/18 05:35 Troponin T < 0.010 ng/mL (0.00-0.029) 03/07/18 05:35 NT-Pro-B Natriuret Pep 17404 pg/mL (0-900) H 03/06/18 17:16 Total Protein 7.5 g/dL (6.3-8.2) 03/07/18 05:35 Albumin 3.8 g/dL (3.9-5) L 03/07/18 05:35 Albumin/Globulin Ratio 1.0 % 03/07/18 05:35 Urine Color Yellow (Yellow) 03/06/18 20:25 Urine Turbidity Clear (Clear) 03/06/18 20:25 Urine pH 6.0 (5.0-7.0) 03/06/18 20:25 Ur Specific [place] 1.005 (1.003-1.030) 03/06/18 20:25 Urine Protein 100 mg/dl mg/dL (Negative) 03/06/18 20:25 Urine Glucose (UA) Neg mg/dL (Negative) 03/06/18 20:25 Urine Ketones Neg mg/dL (Negative) 03/06/18 20:25 Urine Blood Neg (Negative) 03/06/18 20:25 Urine Nitrite Neg (Negative) 03/06/18 20:25 Urine Bilirubin Neg (Negative) 03/06/18 20:25 Urine Urobilinogen < 2.0 mg/dL (<2.0) 03/06/18 20:25 Ur Leukocyte Esterase Neg (Negative) 03/06/18 20:25 Urine WBC (Auto) 1.0 /HPF (0.0-6.0) 03/06/18 20:25 Urine RBC (Auto) 4.0 /HPF (0.0-6.0) 03/06/18 20:25 U Epithel Cells (Auto) 1.0 /HPF (0-13.0) 03/06/18 20:25 Nutrition/Malnutrition Assess - Dietary Evaluation Nutrition/Malnutrition Findings: Nutrition Notes Start: 03/07/18 15:17 Freq: Status: Active Protocol: Document 03/07/18 15:32 RM (Rec: 03/07/18 15:36 RM [id number]) Nutrition Notes Need for Assessment generated from: Education Initial or Follow up Assessment Current Diagnosis Diabetes Hypertension Heart Failure Hyperlipidemia Subjective/Other Information Pt screened for Coumadin/Vit K diet education. Pt stated that she had been previously educated but had not fully understand it. Reviewed Coumadin/Vit K diet education. Gave handout. #1 Nutrition Diagnosis Food and nutrition-related knowledge deficit Etiology incomplete understanding of previous education As Evidenced by Signs and Symptoms pt desire for diet education Nutrition Intervention Teaching Recipient Patient Learning Readiness Good Teaching Methods Discussion Handout Response to Teaching Verbalize understanding Education Handouts Provided Vit K and Medications Barriers to Learning No Barriers RD phone number provided Yes Patient aware of follow up options Yes Goal #1 Adhere to diet Revisit per MD consult or patient Sign Off request:
[2018-03-12] MEDS ORDERED: NACL 0.9% 500 ML 500 ML ONE (14:24)
[2018-03-12] MEDS: MILRINONE-D5W 20 MG/100 ML 20 MG/100 ML BAG IV SCH (16:15)
[2018-03-12] MEDS ORDERED: COUMADIN PO SCH (17:00)
[2018-03-12] MEDS: SINGULAIR PO SCH (17:39)
[2018-03-12] MEDS: NEURONTIN PO SCH (21:09)
[2018-03-12] MEDS: LATANOPROST 0.005% OU SCH (21:10)
[2018-03-13] MEDS: MILRINONE-D5W 20 MG/100 ML 20 MG/100 ML BAG IV SCH (02:47)
[2018-03-13] MEDS: APRESOLINE PO SCH ×3 (05:41→21:59)
[2018-03-13 06:10] LABS: Hematocrit 33.8 % (30.3-42.9); Hemoglobin 10.7 gm/dl (10.1-14.3); Mean Corpuscular HGB Conc 32 % (30-34); Mean Corpuscular Volume 77 fl (79-97); Platelet Count 211 K/mm3 (140-440); Red Cell Distribution Width 17.8 % (13.2-15.2)
[2018-03-13 06:20] LABS: Calcium 9.2 mg/dL (8.4-10.2)
[2018-03-13 06:24] LABS: INR 1.33 (0.87-1.13)
[2018-03-13] MEDS: HumaLOG SUB-Q SCH ×4 (08:15→22:55)
[2018-03-13] MEDS: DUONEB *Not for PRN Use IH SCH ×4 (08:34→21:17)
[2018-03-13] MEDS ORDERED: HEPARIN/NS 5000 UNIT/500ML(CATH LAB) 1,000 ML IR ONE (09:56)
[2018-03-13] MEDS: SUBLIMAZE ONE ×2 (10:06→10:21)
[2018-03-13] MEDS: XYLOCAINE 2% INFILTRATI ONE ×2 (10:06→10:23)
[2018-03-13] MEDS: VERSED ONE ×2 (10:06→10:21)
--- NOTE | 2018-03-13 10:22 | Progress Note ---
Assessment and Plan Assessment and plan: Patient 67-year-old woman presents with orthopnea, PND and shortness of breath. Hospital course The patient has been diuresed, continued diuresis She was seen by cardiology, who agreed with the plan CHF EF 15%, meds been optimized by cardiology Atrial fibrillation on warfarin; continue rate control medications, -INR was supratherapeutic, therefore warfarin was held for several days, then was restarted when INR was at goal. -Blood pressure medications were optimized - K was repleted -Cr bumped up after lasix, therefore it was held x 2 days, cr improved, dw Dr Koo, lasix restarted now -has received lifevest -resp status worse today, started on milrinone drip 2/ -For cardiac cath today dw with her PCP at [facility] at [phone] Diagnoses Acute on chronic systolic CHF Atrial fibrillation with hypercoagulable state Coagulopathy due to warfarin Hypertension type 2 diabetes GERD Glaucoma Hypertensive urgency Hypokalemia JJ upon CKD stage 3/ vasomotor nephropathy Dc in 1-2 days History Interval history: Review of systems Constitutional: No fevers, no malaise, no joint pains CVS: Orthopnea is worse, c/o sob and YAÑEZ, and is hypoxic GI: No abdominal pain, no diarrhea, no vomiting, no constipation Respiratory: no wheezing, no coughing Hospitalist Physical - Physical exam Narrative exam: General.: moderate resp distress HEENT: Moist mucous membranes, extraocular muscles intact, no lymphadenopathy Neck: supple Cardiac: S1-S2 heard Lungs: crackles in bases Abdomen: soft , nontender, nondistended, bowel sounds positive Extremities: no edema clubbing or cyanosis Skin: no rash or lesions Neurologic: no gross focal deficits Psych: calm, and cooperative - Constitutional Vitals: Temp Pulse Resp BP Pulse Ox 97.8 F 111 H 18 163/94 94 03/13/18 04:52 03/13/18 05:41 03/13/18 04:52 03/13/18 05:41 03/13/18 09:03 General appearance: Present: no acute distress, well-nourished Results - Labs CBC & Chem 7: 03/13/18 05:46 03/13/18 05:46 Labs: Laboratory Last Values WBC 5.0 K/mm3 (4.5-11.0) 03/13/18 05:46 RBC 4.40 M/mm3 (3.65-5.03) 03/13/18 05:46 Hgb 10.7 gm/dl (10.1-14.3) 03/13/18 05:46 Hct 33.8 % (30.3-42.9) 03/13/18 05:46 MCV 77 fl (79-97) L 03/13/18 05:46 MCH 24 pg (28-32) L 03/13/18 05:46 MCHC 32 % (30-34) 03/13/18 05:46 RDW 17.8 % (13.2-15.2) H 03/13/18 05:46 Plt Count 211 K/mm3 (140-440) 03/13/18 05:46 Lymph % (Auto) 34.8 % (13.4-35.0) 03/07/18 05:35 [place] % (Auto) 12.8 % (0.0-7.3) H 03/07/18 05:35 Eos % (Auto) 1.7 % (0.0-4.3) 03/07/18 05:35 Baso % (Auto) 1.1 % (0.0-1.8) 03/07/18 05:35 Lymph # 1.8 K/mm3 (1.2-5.4) 03/07/18 05:35 [place] # 0.7 K/mm3 (0.0-0.8) 03/07/18 05:35 Eos # 0.1 K/mm3 (0.0-0.4) 03/07/18 05:35 Baso # 0.1 K/mm3 (0.0-0.1) 03/07/18 05:35 Seg Neutrophils % 49.6 % (40.0-70.0) 03/07/18 05:35 Seg Neutrophils # 2.5 K/mm3 (1.8-7.7) 03/07/18 05:35 PT 16.9 Sec. (12.2-14.9) H 03/13/18 05:46 INR 1.33 (0.87-1.13) H 03/13/18 05:46 Sodium 143 mmol/L (137-145) 03/13/18 05:46 Potassium 4.2 mmol/L (3.6-5.0) 03/13/18 05:46 Chloride 108.3 mmol/L (98-107) H 03/13/18 05:46 Carbon Dioxide 23 mmol/L (22-30) 03/13/18 05:46 Anion Gap 16 mmol/L 03/13/18 05:46 BUN 25 mg/dL (7-17) H 03/13/18 05:46 Creatinine 1.1 mg/dL (0.7-1.2) 03/13/18 05:46 Estimated GFR 60 ml/min 03/13/18 05:46 BUN/Creatinine Ratio 23 % 03/13/18 05:46 Glucose 113 mg/dL (65-100) H 03/13/18 05:46 POC Glucose 107 (70-105) H 03/13/18 05:46 Hemoglobin A1c 8.9 % (4-6) H 03/06/18 17:16 Calcium 9.2 mg/dL (8.4-10.2) 03/13/18 05:46 Magnesium 1.70 mg/dL (1.7-2.3) 03/06/18 17:16 Total Bilirubin 0.70 mg/dL (0.1-1.2) 03/07/18 05:35 AST 25 units/L (5-40) 03/07/18 05:35 ALT 30 units/L (7-56) 03/07/18 05:35 Alkaline Phosphatase 136 units/L (35-129) H 03/07/18 05:35 Troponin T < 0.010 ng/mL (0.00-0.029) 03/07/18 05:35 NT-Pro-B Natriuret Pep 39963 pg/mL (0-900) H 03/06/18 17:16 Total Protein 7.5 g/dL (6.3-8.2) 03/07/18 05:35 Albumin 3.8 g/dL (3.9-5) L 03/07/18 05:35 Albumin/Globulin Ratio 1.0 % 03/07/18 05:35 Urine Color Yellow (Yellow) 03/06/18 20:25 Urine Turbidity Clear (Clear) 03/06/18 20:25 Urine pH 6.0 (5.0-7.0) 03/06/18 20:25 Ur Specific [place] 1.005 (1.003-1.030) 03/06/18 20:25 Urine Protein 100 mg/dl mg/dL (Negative) 03/06/18 20:25 Urine Glucose (UA) Neg mg/dL (Negative) 03/06/18 20:25 Urine Ketones Neg mg/dL (Negative) 03/06/18 20:25 Urine Blood Neg (Negative) 03/06/18 20:25 Urine Nitrite Neg (Negative) 03/06/18 20:25 Urine Bilirubin Neg (Negative) 03/06/18 20:25 Urine Urobilinogen < 2.0 mg/dL (<2.0) 03/06/18 20:25 Ur Leukocyte Esterase Neg (Negative) 03/06/18 20:25 Urine WBC (Auto) 1.0 /HPF (0.0-6.0) 03/06/18 20:25 Urine RBC (Auto) 4.0 /HPF (0.0-6.0) 03/06/18 20:25 U Epithel Cells (Auto) 1.0 /HPF (0-13.0) 03/06/18 20:25 Nutrition/Malnutrition Assess - Dietary Evaluation Nutrition/Malnutrition Findings: Nutrition Notes Start: 03/07/18 15:17 Freq: Status: Active Protocol: Document 03/07/18 15:32 RM (Rec: 03/07/18 15:36 RM [id number]) Nutrition Notes Need for Assessment generated from: Education Initial or Follow up Assessment Current Diagnosis Diabetes Hypertension Heart Failure Hyperlipidemia Subjective/Other Information Pt screened for Coumadin/Vit K diet education. Pt stated that she had been previously educated but had not fully understand it. Reviewed Coumadin/Vit K diet education. Gave handout. #1 Nutrition Diagnosis Food and nutrition-related knowledge deficit Etiology incomplete understanding of previous education As Evidenced by Signs and Symptoms pt desire for diet education Nutrition Intervention Teaching Recipient Patient Learning Readiness Good Teaching Methods Discussion Handout Response to Teaching Verbalize understanding Education Handouts Provided Vit K and Medications Barriers to Learning No Barriers RD phone number provided Yes Patient aware of follow up options Yes Goal #1 Adhere to diet Revisit per MD consult or patient Sign Off request:
--- NOTE | 2018-03-13 11:26 | Event Note ---
Date: 03/13/18 Patient underwent right and left heart catheterization, no complications, following findings: 1. Moderate elevation of intracardiac filling pressures with a pulmonary wedge pressure of 20-25. 2. Severe pulmonary hypertension, with pulmonary artery systolic pressures of 85-90. 3. Mild nonobstructive coronary irregularities. 4. Nonischemic cardiomyopathy, left ventricular systolic ejection fraction 25%. I spoke with the patient's primary coding and reimbursement specialist at [facility], updated him with the findings, we will treat patient's left-sided heart failure for one more day, plan discharge tomorrow on the guideline directed medical therapy for systolic heart failure and oral anticoagulation for atrial fibrillation. As outpatient, she will have further assessment and management of the pulmonary disease and severe pulmonary hypertension.
[2018-03-13] MEDS: PEPCID PO SCH (11:38)
[2018-03-13] MEDS: IMDUR PO SCH (11:38)
[2018-03-13] MEDS: COREG PO SCH ×2 (11:38→21:59)
[2018-03-13] MEDS: COZAAR PO SCH (11:39)
[2018-03-13] MEDS: LASIX PO SCH (11:39)
[2018-03-13] MEDS: GLUCOTROL PO SCH (11:39)
[2018-03-13] MEDS: K-DUR PO SCH ×2 (11:39→21:58)
[2018-03-13] MEDS: MAG-OX PO SCH (11:39)
[2018-03-13] MEDS: SODIUM CHLORIDE FLUSH SYRINGE 10 ML IV SCH ×2 (11:40→22:00)
[2018-03-13] MEDS ORDERED: NACL 0.9% 1000 ML 1,000 ML IV SCH (12:00)
--- NOTE | 2018-03-13 12:02 | Cardiac Catherization Report ---
CARDIAC CATHETERIZATION REPORT REASON FOR PROCEDURE: The patient is a 67-year-old woman with history of nonischemic cardiomyopathy, chronic systolic heart failure and chronic atrial fibrillation. She presented to the hospital with symptoms of heart failure and despite aggressive medical therapy, she continued to have progressive shortness of breath, both at exertion and with rest. Due to worsening symptoms, she was recommended to undergo right and left heart catheterization. PROCEDURE: 1. Right heart catheterization. 2. Left heart catheterization. 3. Selective left and right coronary angiography. 4. Left ventricle angiography. 5. Sedation time; start 10:21, end 10:55. The patient was prepped and draped in a sterile fashion after informed consent. The right femoral artery and vein were both entered using Seldinger technique followed by a 6-[place] sheath in the artery and a 7-[place] sheath in the vein. A Beaver-Alyssa catheter was then inserted into the femoral vein and advanced to the pulmonary artery position. Cardiac output was measured using the thermodilution method. A pigtail catheter was then advanced into the left ventricle. We then performed simultaneous left and right heart filling pressures measurement. Following this, the Beaver-Alyssa catheter was then withdrawn and right heart pressures were recorded. Left ventricle angiography was then performed following which the pigtail was withdrawn across the aortic valve and transaortic pressures were recorded. Selective left and right coronary angiography was performed using #4 right and left Usman catheters. The catheters and the sheaths were then removed, arterial hemostasis was achieved using an Angio-Seal device, and venous hemostasis using manual compression. The patient was then returned to the postprocedure unit in stable condition. There were no complications. FINDINGS: HEMODYNAMICS: Mean right atrial pressure was 18. The right ventricular pressure was 85/20. Pulmonary artery pressure was 85/40. The mean pulmonary artery wedge pressure was 20-25. Left ventricular end-diastolic pressure was 25. Ascending aortic pressure was 158/88. There was no significant pressure gradient on pullback across the aortic valve. Cardiac output was 4.4 liters per minute. CORONARY ANGIOGRAPHY: There was mild diffuse coronary calcification, chiefly involving the left coronary system. CORONARY ANGIOGRAPHY: The left main coronary artery was otherwise free of significant disease. The left anterior descending artery contained a 20-30% luminal stenosis of its mid segment, but otherwise free of significant disease. A large circumflex system was notable for a 30-50% stenosis of its mid segment leading to a terminal obtuse marginal. The right coronary artery was dominant and contained mild luminal irregularities. The left ventricle was at least moderately dilated. There was severe left ventricular systolic dysfunction, diffuse hypokinesis, estimated ejection fraction 25%. CONCLUSION: 1. Moderate increase in right and left heart filling pressures. 2. Severe pulmonary hypertension with pulmonary artery systolic pressures of 85 mmHg. 3. Mild, nonobstructive disease of the mid LAD and mid circumflex as reported above. 4. Dilated, nonischemic cardiomyopathy, severe left ventricular systolic dysfunction, ejection fraction 25%. RECOMMENDATION: 1. The patient is recommended for further pulmonary evaluation and management of severe pulmonary hypertension, pulmonary artery systolic pressure is 85 mmHg. 2. Medical management with guideline directed medical therapy for nonischemic cardiomyopathy and systolic heart failure. [facility]# [id number] THELMA/ELIAS
[2018-03-13] MEDS: HEPARIN SUB-Q SCH ×2 (14:59→21:59)
[2018-03-13] MEDS: ALPHAGAN P 0.1% OU SCH ×2 (14:59→22:55)
[2018-03-13] MEDS: DILAUDID IV PRN (15:03)
[2018-03-13] MEDS ORDERED: COUMADIN PO SCH (17:00)
[2018-03-13] MEDS: SINGULAIR PO SCH (19:07)
[2018-03-13] MEDS: COUMADIN PO SCH (19:08)
--- NOTE | 2018-03-13 19:15 | Progress Note ---
Assessment and Plan - Patient Problems (1) Acute on chronic renal insufficiency Current Visit: Yes Status: Acute Plan to address problem: likely secondary to acute cardiorenal syndrome and diuretic effect. Cr ranging around 1.1-1.4mg/dl. volume status is stable, restarted lasix 40mg po qd. cont ARB given stable renal function. avoid nephrotoxins, NSAIDs, IV contrast. (2) Acute exacerbation of CHF (congestive heart failure) Current Visit: Yes Status: Acute Qualifiers: Heart failure type: unspecified Qualified Code(s): I50.9 - Heart failure, unspecified Plan to address problem: cont BB, ARB, loop diuretic. follow cardiology recommendations. (3) Chronic atrial fibrillation Current Visit: Yes Status: Acute Plan to address problem: rate control as per cardiology Subjective Date of service: 03/13/18 Principal diagnosis: JJ, HFrEF Interval history: Patient awake, alert, in no acute respiratory distress, s/p cardiac cath Objective - Vital Signs Vital signs: Vital Signs - 12hr 03/13/18 03/13/18 03/13/18 09:03 11:36 11:38 Pulse Rate 103 H 84 Pulse Rate [ Anterior Bilateral Throughout] Pulse Rate [ Anterior Bilateral Upper Lobe] Respiratory Rate [Anterior Bilateral Throughout] Respiratory Rate [Anterior Bilateral Upper Lobe] Blood Pressure 161/95 161/95 O2 Sat by Pulse 94 93 Oximetry 03/13/18 03/13/18 03/13/18 11:39 12:01 12:31 Pulse Rate 84 123 H 97 H Pulse Rate [ Anterior Bilateral Throughout] Pulse Rate [ Anterior Bilateral Upper Lobe] Respiratory Rate [Anterior Bilateral Throughout] Respiratory Rate [Anterior Bilateral Upper Lobe] Blood Pressure 161/95 126/73 O2 Sat by Pulse 97 100 Oximetry 03/13/18 03/13/18 03/13/18 13:01 13:32 14:00 Pulse Rate 104 H Pulse Rate [ Anterior Bilateral Throughout] Pulse Rate [ Anterior Bilateral Upper Lobe] Respiratory Rate [Anterior Bilateral Throughout] Respiratory Rate [Anterior Bilateral Upper Lobe] Blood Pressure 155/65 172/153 152/100 O2 Sat by Pulse 94 Oximetry 03/13/18 03/13/18 03/13/18 14:25 14:30 14:31 Pulse Rate 100 H Pulse Rate [ 86 88 Anterior Bilateral Throughout] Pulse Rate [ Anterior Bilateral Upper Lobe] Respiratory 16 18 Rate [Anterior Bilateral Throughout] Respiratory Rate [Anterior Bilateral Upper Lobe] Blood Pressure 147/94 O2 Sat by Pulse 95 Oximetry 03/13/18 03/13/18 03/13/18 14:58 15:01 17:15 Pulse Rate 100 H 102 H Pulse Rate [ 90 Anterior Bilateral Throughout] Pulse Rate [ 88 Anterior Bilateral Upper Lobe] Respiratory 16 Rate [Anterior Bilateral Throughout] Respiratory 16 Rate [Anterior Bilateral Upper Lobe] Blood Pressure 147/95 155/89 O2 Sat by Pulse 100 Oximetry 03/13/18 17:34 Pulse Rate 79 Pulse Rate [ Anterior Bilateral Throughout] Pulse Rate [ Anterior Bilateral Upper Lobe] Respiratory Rate [Anterior Bilateral Throughout] Respiratory Rate [Anterior Bilateral Upper Lobe] Blood Pressure 109/76 O2 Sat by Pulse 97 Oximetry - General Appearance General appearance: well-developed, well-nourished, appears stated age EENT: ATNC, PERRL, mucous membranes moist Neck: no JVD Respiratory: Present: Clear to Ascultation Cardiology: regular, S1S2 Gastrointestinal: normoactive bowel sounds Integumentary: no rash, other (no edema ) Neurologic: no focal deficit, alert and oriented x3, strength 5/5, CN 3-12 intact Psychiatric: mood/affect appropriate, cooperative - Lab 03/13/18 05:46 03/13/18 05:46 Most recent lab results Calcium 9.2 mg/dL (8.4-10.2) 03/13/18 05:46 Magnesium 1.70 mg/dL (1.7-2.3) 03/06/18 17:16 Medications & Allergies - Medications Allergies/Adverse Reactions: Allergies lisinopril Allergy (Verified 03/06/18 16:33) Shortness of Breath Home Medications: Home Medications Medication Instructions Recorded Confirmed Last Taken Type [place]-3/Dha/Epa/Fish Oil [Fish Oil 1,000 mg PO DAILY 08/09/17 03/12/18 08/09/17 History 1,000 mg Softgel] Alphagan P 0.1% 1 drop OU BID 08/10/17 03/12/18 08/09/17 History AtorvaSTATin 40 mg PO DAILY 08/10/17 03/12/18 08/09/17 History Magnesium Oxide 400 mg PO DAILY 08/10/17 03/12/18 08/09/17 History Metformin HCl 1,000 mg PO HS #30 tablet 08/16/17 03/12/18 Unknown Rx Pantoprazole [Protonix TAB] 40 mg PO QDAY #30 tablet 08/16/17 03/12/18 Unknown Rx Carvedilol [Coreg] 25 mg PO BID #60 tablet 03/12/18 Unknown Rx Furosemide [Lasix TAB] 40 mg PO QDAY #30 tablet 03/12/18 Unknown Rx Gabapentin [Neurontin] 100 mg PO HS #30 capsule 03/12/18 Unknown Rx ISOSORBIDE MONOnitrate [Imdur ER] 30 mg PO DAILY #30 tablet 03/12/18 Unknown Rx Latanoprost 0.005% 1 drops OU HS #1 bottle 03/12/18 Unknown Rx Losartan [Cozaar] 100 mg PO QDAY #30 tablet 03/12/18 Unknown Rx Montelukast [Singulair] 10 mg PO 1800 #30 tablet 03/12/18 Unknown Rx Potassium Chloride [K-Dur] 20 meq PO BID 30 Days tablet 03/12/18 Unknown Rx Warfarin [Coumadin] 2 mg PO DAILY@1700 #30 tablet 03/12/18 Unknown Rx glipiZIDE [Glucotrol] 10 mg PO QDDIAB #30 tablet 03/12/18 Unknown Rx hydrALAZINE [Apresoline TAB] 50 mg PO Q8HR #90 tablet 03/12/18 Unknown Rx Active Medications: Generic Name Dose Route Start Last Admin Trade Name Philipq PRN Reason Stop Dose Admin Acetaminophen 650 mg 03/06/18 21:57 03/13/18 02:50 Tylenol PO 650 mg Q4H PRN Administration Pain MILD(1-3)/Fever >100.5/GARCIA Albuterol/Ipratropium 1 ampul 03/07/18 08:00 03/13/18 17:00 Duoneb *Not For Prn Use* IH 1 ampul QIDRT NANCIE Administration Atorvastatin Calcium 40 mg 03/07/18 22:00 03/12/18 21:09 Lipitor PO 40 mg QHS NANCIE Administration Carvedilol 25 mg 03/10/18 11:00 03/13/18 11:38 Coreg PO 25 mg BID NANCIE Administration Dextrose 50 ml 03/06/18 21:57 03/13/18 17:42 D50w (25gm) Syringe IV 50 ml PRN PRN Administration Hypoglycemia Famotidine 20 mg 03/07/18 10:00 03/13/18 11:38 Pepcid PO 20 mg QAM NANCIE Administration Furosemide 40 mg 03/11/18 10:00 03/13/18 11:39 Lasix PO 40 mg QDAY NANCIE Administration Gabapentin 100 mg 03/07/18 00:39 03/12/18 21:09 Neurontin PO 100 mg HS NANCIE Administration Heparin Sodium (Porcine) 5,000 unit 03/13/18 14:00 03/13/18 14:59 Heparin SUB-Q 5,000 unit Q8HR NANCIE Administration Hydralazine HCl 50 mg 03/11/18 22:00 03/13/18 14:58 Apresoline PO 50 mg Q8HR NANCIE Administration Hydromorphone HCl 0.5 mg 03/06/18 21:57 03/13/18 15:03 Dilaudid IV 0.5 mg Q3H PRN Administration Pain , Severe (7-10) Milrinone Lactate/Dextrose 20 mg in 100 mls @ 9.09 mls/hr 03/12/18 16:00 03/13/18 02:47 Milrinone-D5w 20 Mg/100 Ml IV 03/15/18 15:59 0.375 mcg/kg/min TITR NANCIE 9.09 mls/hr Administration 0.375 MCG/KG/MIN Insulin Glargine 10 units 03/13/18 22:00 Lantus SUB-Q QHS [facility] Insulin Human Lispro 0 unit 03/07/18 07:30 03/13/18 19:08 Humalog SUB-Q Not Given ACHS [facility] Protocol Isosorbide Mononitrate 30 mg 03/07/18 10:00 03/13/18 11:38 Imdur PO 30 mg DAILY NANCIE Administration Latanoprost 1 drops 03/07/18 22:00 03/12/18 21:10 Latanoprost 0.005% OU 1 drops HS NANCIE Administration Losartan Potassium 100 mg 03/07/18 10:00 03/13/18 11:39 Cozaar PO 100 mg QDAY NANCIE Administration Magnesium Oxide 400 mg 03/07/18 10:00 03/13/18 11:39 Mag-Ox PO 400 mg DAILY NANCIE Administration Miscellaneous Medication 1 drop 03/07/18 10:00 03/13/18 14:59 Alphagan P 0.1% OU 1 drop BID NANCIE Administration Montelukast Sodium 10 mg 03/07/18 18:00 03/13/18 19:07 Singulair PO 10 mg 1800 NANCIE Administration Ondansetron HCl 4 mg 03/06/18 21:57 Zofran IV Q8H PRN Nausea And Vomiting Potassium Chloride 20 meq 03/08/18 10:00 03/13/18 11:39 K-Dur PO 20 meq BID NANCIE Administration Sodium Chloride 10 ml 03/06/18 22:00 03/13/18 11:40 Sodium Chloride Flush Syringe 10 Ml IV 10 ml BID NANCIE Administration Sodium Chloride 10 ml 03/06/18 21:57 03/12/18 09:33 Sodium Chloride Flush Syringe 10 Ml IV 10 ml PRN PRN Administration LINE FLUSH Warfarin Sodium 5 mg 03/13/18 17:00 03/13/18 19:08 Coumadin PO 5 mg DAILY@1700 NANCIE Administration
[2018-03-13] MEDS: NEURONTIN PO SCH (21:58)
[2018-03-13] MEDS: LATANOPROST 0.005% OU SCH (21:59)
[2018-03-13] MEDS: LANTUS SUB-Q SCH (22:56)
[2018-03-14] MEDS: APRESOLINE PO SCH ×3 (05:53→22:29)
[2018-03-14] MEDS: HEPARIN SUB-Q SCH ×3 (05:53→22:37)
[2018-03-14] MEDS: MILRINONE-D5W 20 MG/100 ML 20 MG/100 ML BAG IV SCH ×2 (06:05→16:46)
[2018-03-14 06:20] LABS: INR 1.34 (0.87-1.13)
[2018-03-14] MEDS: DUONEB *Not for PRN Use IH SCH ×4 (08:42→20:32)
--- NOTE | 2018-03-14 09:29 | Discharge Summary ---
Providers - Providers Date of Admission: 03/06/18 18:42 Attending physician: POORNIMA QUESADA MD 03/06/18 21:57 Consult to Physician [CONS] Routine Comment: Consulting Provider: TIANA WILDER Physician Instructions: Reason For Exam: CHF exacerbation 03/09/18 14:34 Consult to Physician [CONS] Routine Comment: Consulting Provider: JOEY HAYS Physician Instructions: Reason For Exam: jj upon ckd 03/13/18 11:28 Consult to Cardiac Rehabilitation [CONS] Routine Reason For Exam: Cardiac Rehab Evaluation Primary care physician: JUN DIAZ Hospitalization Condition: Fair Hospital course: Patient 67-year-old woman presents with orthopnea, PND and shortness of breath. Hospital course The patient has been diuresed, continued diuresis She was seen by cardiology, who agreed with the plan CHF EF 15%, meds been optimized by cardiology Atrial fibrillation on warfarin; continue rate control medications, -INR was supratherapeutic, therefore warfarin was held for several days, then was restarted when INR was at goal. -Blood pressure medications were optimized - K was repleted -Cr bumped up after lasix, therefore it was held x 2 days, cr improved, dw Dr Koo, lasix restarted now -has received lifevest -resp status worse today, started on milrinone drip 2/4 -For cardiac cath today dw with her PCP at [facility] at [phone] Diagnoses Acute on chronic systolic CHF Atrial fibrillation with hypercoagulable state Coagulopathy due to warfarin Hypertension type 2 diabetes GERD Glaucoma Hypertensive urgency Hypokalemia JJ upon CKD stage 3/ vasomotor nephropathy Disposition: TO HOME OR SELFCARE Time spent for discharge: 33 mins Core Measure Documentation - Palliative Care Palliative Care/ Comfort Measures: Not Applicable - Core Measures Any of the following diagnoses?: heart failure - Heart Failure Discharge Requirements PB/ARB for LVSD if EF <40%: Yes Beta radha at discharge: Yes Exam - Constitutional Vitals: Temp Pulse Resp BP Pulse Ox 98.3 F 115 H 19 134/83 99 03/14/18 03:09 03/14/18 08:43 03/14/18 08:43 03/14/18 05:53 03/14/18 08:43 General appearance: Present: no acute distress, well-nourished - EENT Eyes: Present: PERRL ENT: hearing intact, clear oral mucosa - Neck Neck: Present: supple, normal ROM - Respiratory Respiratory effort: normal Respiratory: bilateral: CTA - Cardiovascular Heart Sounds: Present: S1 & S2. Absent: rub, click - Extremities Extremities: pulses symmetrical, No edema Peripheral Pulses: within normal limits - Abdominal General gastrointestinal: Present: soft, non-tender, non-distended, normal bowel sounds Female genitourinary: Present: normal - Integumentary Integumentary: Present: clear, warm, dry - Musculoskeletal Musculoskeletal: gait normal, strength equal bilaterally - Psychiatric Psychiatric: appropriate mood/affect, intact judgment & insight - Neurologic Neurologic: CNII-XII intact, moves all extremities Plan Follow up with: TIANA WILDER MD [Staff Physician] - 7 Days JOEY HAYS MD [Staff Physician] - 7 Days JUN DIAZ MD [Primary Care Provider] - 3-5 Days Forms: Warfarin Discharge Instruction Prescriptions: Carvedilol [Coreg] 25 mg PO BID #60 tablet Furosemide [Lasix TAB] 40 mg PO QDAY #30 tablet Gabapentin [Neurontin] 100 mg PO HS #30 capsule glipiZIDE [Glucotrol] 10 mg PO QDDIAB #30 tablet hydrALAZINE [Apresoline TAB] 50 mg PO Q8HR #90 tablet ISOSORBIDE MONOnitrate [Imdur ER] 30 mg PO DAILY #30 tablet Latanoprost 0.005% 1 drops OU HS #1 bottle Losartan [Cozaar] 100 mg PO QDAY #30 tablet Montelukast [Singulair] 10 mg PO 1800 #30 tablet Potassium Chloride [K-Dur] 20 meq PO BID 30 Days tablet Warfarin [Coumadin] 2 mg PO DAILY@1700 #30 tablet
[2018-03-14] MEDS: IMDUR PO SCH (09:30)
[2018-03-14] MEDS: PEPCID PO SCH (09:30)
[2018-03-14] MEDS: COREG PO SCH ×2 (09:30→22:29)
[2018-03-14] MEDS: MAG-OX PO SCH (09:30)
[2018-03-14] MEDS: LASIX PO SCH (09:30)
[2018-03-14] MEDS: K-DUR PO SCH ×2 (09:30→22:28)
[2018-03-14] MEDS: COZAAR PO SCH (09:31)
[2018-03-14] MEDS: SODIUM CHLORIDE FLUSH SYRINGE 10 ML IV SCH ×2 (09:31→22:27)
[2018-03-14] MEDS: ALPHAGAN P 0.1% OU SCH ×2 (09:31→22:58)
[2018-03-14] MEDS: HumaLOG SUB-Q SCH ×4 (09:31→22:36)
--- NOTE | 2018-03-14 09:59 | Progress Note ---
Addendum entered and electronically signed by JARROD WALLS MD 03/14/18 11:09: Patient seen and examined by me Evidence of distended neck veins on exam Patient also states that she continues to require oxygen supplementation Tele is showing afib with RVR Recommendations: Change po to IV lasix Continue IV milrinone Initiate digoxin loading Continue warfarin therapy Original Note: Assessment and Plan Shortness of breath Acute renal failure Acute on chronic systolic heart failure Non-ischemic cardiomyopathy MPI this admission showing no ischemia LVEF 15-20% this admission Right and Left heart catheterization findings: 1. Moderate elevation of intracardiac filling pressures with a pulmonary wedge pressure of 20-25. 2. Severe pulmonary hypertension, with pulmonary artery systolic pressures of 85-90. 3. Mild nonobstructive coronary irregularities. 4. Nonischemic cardiomyopathy, left ventricular systolic ejection fraction 25%. Atrial fibrillation on warfarin for oral anticoagulation INR > 4 on presentation NSVT on telemetry -pt remained asymptomatic lifevest placed Recommendations: Advised sodium/fluid restriction. Continue medical therapy for nonischemic cardiomyopathy and persistent atrial fibrillation. We will treat patient's left-sided heart failure for one more day, plan discharge tomorrow. Subjective Date of service: 03/14/18 Principal diagnosis: JJ, HFrEF Interval history: Patient with continued shortness of breath and distended neck veins. Objective Vital Signs Temp Pulse Pulse Pulse Resp Resp Resp 03/14/18 09:39 137 H 20 03/14/18 09:38 98.3 F 03/14/18 08:43 115 H 19 03/14/18 08:42 124 H 19 03/14/18 05:53 92 H 03/14/18 03:09 98.3 F 92 H 18 03/13/18 23:55 98.3 F 78 18 03/13/18 21:59 107 H 03/13/18 21:28 107 H 03/13/18 21:21 03/13/18 21:20 92 H 16 03/13/18 21:10 90 12 03/13/18 19:27 97.9 F 77 18 03/13/18 17:34 79 03/13/18 17:15 90 88 16 16 03/13/18 15:01 102 H 03/13/18 14:58 100 H 03/13/18 14:31 88 18 03/13/18 14:30 100 H 03/13/18 14:25 86 16 03/13/18 14:00 03/13/18 13:32 03/13/18 13:01 104 H 03/13/18 12:31 97 H 03/13/18 12:01 123 H 03/13/18 11:39 84 03/13/18 11:38 84 03/13/18 11:36 103 H BP Pulse Ox 03/14/18 09:39 134/82 96 03/14/18 09:38 03/14/18 08:43 99 03/14/18 08:42 03/14/18 05:53 134/83 03/14/18 03:09 134/83 98 03/13/18 23:55 131/97 99 03/13/18 21:59 128/76 03/13/18 21:28 03/13/18 21:21 98 03/13/18 21:20 03/13/18 21:10 03/13/18 19:27 128/76 96 03/13/18 17:34 109/76 97 03/13/18 17:15 03/13/18 15:01 155/89 100 03/13/18 14:58 147/95 03/13/18 14:31 03/13/18 14:30 147/94 95 03/13/18 14:25 03/13/18 14:00 152/100 03/13/18 13:32 172/153 03/13/18 13:01 155/65 94 03/13/18 12:31 126/73 100 03/13/18 12:01 97 03/13/18 11:39 161/95 03/13/18 11:38 161/95 03/13/18 11:36 161/95 93 - Physical Examination General: No Apparent Distress HEENT: Positive: PERRL Neck: Positive: trachea midline Cardiac: Positive: irregularly irregular Lungs: Positive: Decreased Breath Sounds Neuro: Positive: Grossly Intact Abdomen: Positive: Soft Extremities: Absent: edema - Labs and Meds Coagulation 03/14/18 Range/Units 05:45 PT 17.0 H (12.2-14.9) Sec. INR 1.34 H (0.87-1.13) Comprehensive Metabolic Panel 03/14/18 Range/Units 05:45 Sodium 142 (137-145) mmol/L Potassium 4.7 (3.6-5.0) mmol/L Chloride 105.8 (98-107) mmol/L Carbon Dioxide 22 (22-30) mmol/L BUN 20 H (7-17) mg/dL Creatinine 1.1 (0.7-1.2) mg/dL Glucose 130 H (65-100) mg/dL Calcium 9.0 (8.4-10.2) mg/dL
--- NOTE | 2018-03-14 10:14 | Progress Note ---
Assessment and Plan Assessment and plan: Patient 67-year-old woman presents with orthopnea, PND and shortness of breath. Hospital course The patient has been diuresed, continued diuresis She was seen by cardiology, who agreed with the plan CHF EF 15%, meds been optimized by cardiology Atrial fibrillation on warfarin; continue rate control medications, -INR was supratherapeutic, therefore warfarin was held for several days, then was restarted when INR was at goal. -Blood pressure medications were optimized - K was repleted -Cr bumped up after lasix, therefore it was held x 2 days, cr improved, dw Dr Koo, lasix restarted now -has received lifevest -resp status worse today,cont milrinone drip -Cardiac cath done on 03/13 shows severe pulmonary hypertension, no coronary obstruction dw with her PCP at [facility] at [phone] Diagnoses Acute on chronic systolic CHF Atrial fibrillation with hypercoagulable state Coagulopathy due to warfarin Hypertension type 2 diabetes GERD Glaucoma Hypertensive urgency Hypokalemia JJ upon CKD stage 3/ vasomotor nephropathy Dc in 1-2 days History Interval history: Review of systems Constitutional: No fevers, no malaise, no joint pains CVS: Orthopnea is worse, c/o sob and YAÑEZ, and is hypoxic GI: No abdominal pain, no diarrhea, no vomiting, no constipation Respiratory: no wheezing, no coughing Hospitalist Physical - Physical exam Narrative exam: General.: moderate resp distress HEENT: Moist mucous membranes, extraocular muscles intact, no lymphadenopathy Neck: supple Cardiac: S1-S2 heard Lungs: crackles in bases Abdomen: soft , nontender, nondistended, bowel sounds positive Extremities: no edema clubbing or cyanosis Skin: no rash or lesions Neurologic: no gross focal deficits Psych: calm, and cooperative - Constitutional Vitals: Temp Pulse Resp BP Pulse Ox 98.3 F 137 H 20 134/82 96 03/14/18 09:38 03/14/18 09:39 03/14/18 09:39 03/14/18 09:39 03/14/18 09:39 General appearance: Present: no acute distress, well-nourished Results - Labs CBC & Chem 7: 03/13/18 05:46 03/14/18 05:45 Labs: Laboratory Last Values WBC 5.0 K/mm3 (4.5-11.0) 03/13/18 05:46 RBC 4.40 M/mm3 (3.65-5.03) 03/13/18 05:46 Hgb 10.7 gm/dl (10.1-14.3) 03/13/18 05:46 Hct 33.8 % (30.3-42.9) 03/13/18 05:46 MCV 77 fl (79-97) L 03/13/18 05:46 MCH 24 pg (28-32) L 03/13/18 05:46 MCHC 32 % (30-34) 03/13/18 05:46 RDW 17.8 % (13.2-15.2) H 03/13/18 05:46 Plt Count 211 K/mm3 (140-440) 03/13/18 05:46 Lymph % (Auto) 34.8 % (13.4-35.0) 03/07/18 05:35 [place] % (Auto) 12.8 % (0.0-7.3) H 03/07/18 05:35 Eos % (Auto) 1.7 % (0.0-4.3) 03/07/18 05:35 Baso % (Auto) 1.1 % (0.0-1.8) 03/07/18 05:35 Lymph # 1.8 K/mm3 (1.2-5.4) 03/07/18 05:35 [place] # 0.7 K/mm3 (0.0-0.8) 03/07/18 05:35 Eos # 0.1 K/mm3 (0.0-0.4) 03/07/18 05:35 Baso # 0.1 K/mm3 (0.0-0.1) 03/07/18 05:35 Seg Neutrophils % 49.6 % (40.0-70.0) 03/07/18 05:35 Seg Neutrophils # 2.5 K/mm3 (1.8-7.7) 03/07/18 05:35 PT 17.0 Sec. (12.2-14.9) H 03/14/18 05:45 INR 1.34 (0.87-1.13) H 03/14/18 05:45 Sodium 142 mmol/L (137-145) 03/14/18 05:45 Potassium 4.7 mmol/L (3.6-5.0) 03/14/18 05:45 Chloride 105.8 mmol/L (98-107) 03/14/18 05:45 Carbon Dioxide 22 mmol/L (22-30) 03/14/18 05:45 Anion Gap 19 mmol/L 03/14/18 05:45 BUN 20 mg/dL (7-17) H 03/14/18 05:45 Creatinine 1.1 mg/dL (0.7-1.2) 03/14/18 05:45 Estimated GFR 60 ml/min 03/14/18 05:45 BUN/Creatinine Ratio 18 % 03/14/18 05:45 Glucose 130 mg/dL (65-100) H 03/14/18 05:45 POC Glucose 121 (70-105) H 03/14/18 05:21 Hemoglobin A1c 8.9 % (4-6) H 03/06/18 17:16 Calcium 9.0 mg/dL (8.4-10.2) 03/14/18 05:45 Magnesium 1.70 mg/dL (1.7-2.3) 03/06/18 17:16 Total Bilirubin 0.70 mg/dL (0.1-1.2) 03/07/18 05:35 AST 25 units/L (5-40) 03/07/18 05:35 ALT 30 units/L (7-56) 03/07/18 05:35 Alkaline Phosphatase 136 units/L (35-129) H 03/07/18 05:35 Troponin T < 0.010 ng/mL (0.00-0.029) 03/07/18 05:35 NT-Pro-B Natriuret Pep 04925 pg/mL (0-900) H 03/06/18 17:16 Total Protein 7.5 g/dL (6.3-8.2) 03/07/18 05:35 Albumin 3.8 g/dL (3.9-5) L 03/07/18 05:35 Albumin/Globulin Ratio 1.0 % 03/07/18 05:35 Urine Color Yellow (Yellow) 03/06/18 20:25 Urine Turbidity Clear (Clear) 03/06/18 20:25 Urine pH 6.0 (5.0-7.0) 03/06/18 20:25 Ur Specific [place] 1.005 (1.003-1.030) 03/06/18 20:25 Urine Protein 100 mg/dl mg/dL (Negative) 03/06/18 20:25 Urine Glucose (UA) Neg mg/dL (Negative) 03/06/18 20:25 Urine Ketones Neg mg/dL (Negative) 03/06/18 20:25 Urine Blood Neg (Negative) 03/06/18 20:25 Urine Nitrite Neg (Negative) 03/06/18 20:25 Urine Bilirubin Neg (Negative) 03/06/18 20:25 Urine Urobilinogen < 2.0 mg/dL (<2.0) 03/06/18 20:25 Ur Leukocyte Esterase Neg (Negative) 03/06/18 20:25 Urine WBC (Auto) 1.0 /HPF (0.0-6.0) 03/06/18 20:25 Urine RBC (Auto) 4.0 /HPF (0.0-6.0) 03/06/18 20:25 U Epithel Cells (Auto) 1.0 /HPF (0-13.0) 03/06/18 20:25 Nutrition/Malnutrition Assess - Dietary Evaluation Nutrition/Malnutrition Findings: Nutrition Notes Start: 03/07/18 15:17 Freq: Status: Active Protocol: Document 03/13/18 14:05 OH (Rec: 03/13/18 14:14 OH [id number]) Nutrition Notes Need for Assessment generated from: LOS Initial or Follow up Reassessment Current Diagnosis Diabetes Hypertension Heart Failure Hyperlipidemia Current Diet cardiac Labs/Tests Na 143 K+ 4.2 Glu 107 Ca 9.2 [id number] 8.9 Pertinent Medications Humalog Coumadin Height 5 ft 4 in Weight 81.4 kg [place] Body Weight (kg) 54.54 BMI 30.8 Subjective/Other Information Pt. screened for LOS. Pt. lying in bed post cardiac cath . Family member present at bedside. #2 Nutrition Diagnosis Altered nutrition-related laboratory values Etiology uncontrolled DM As Evidenced by Signs and Symptoms [id number]; non compliance w/DM diet Is patient on ventilator? No Is Patient Ambulatory and/or Out of Bed No REE-([place]-confined to bed) [phone] [facility] Additional Notes FLUID: 1 mL/kcal PROTEIN: 1-1.4 G/KG/IBW (54-76 G/DAY) Nutrition Intervention Change Diet Order: Cardiac diet with consistent CHO Teaching Recipient Family Learning Readiness Fair Teaching Methods Discussion Handout Education Handouts Provided ADA CHO counting handout Barriers to Learning Motivation Age related Financial Environmental Social Goal #1 >75% kcal/protein needs to be met via po intake Goal #2 Improved blood Glu control Anticipated Discharge Needs: dm education Follow-Up By: 03/15/18 Additional Comments F/U: PO intake
--- NOTE | 2018-03-14 11:00 | Progress Note ---
Assessment and Plan - Patient Problems (1) Acute on chronic renal insufficiency Current Visit: Yes Status: Acute Plan to address problem: likely secondary to acute cardiorenal syndrome and diuretic effect. Cr ranging around 1.1-1.4mg/dl. volume status is stable, lasix was increased to 40mg bid, pt also started on milrinone. cont ARB given stable renal function. avoid nephrotoxins, NSAIDs, IV contrast. (2) Acute exacerbation of CHF (congestive heart failure) Current Visit: Yes Status: Acute Qualifiers: Heart failure type: unspecified Qualified Code(s): I50.9 - Heart failure, unspecified Plan to address problem: cont BB, ARB, loop diuretic. follow cardiology recommendations. (3) Chronic atrial fibrillation Current Visit: Yes Status: Acute Plan to address problem: rate control as per cardiology Subjective Date of service: 03/14/18 Principal diagnosis: JJ, HFrEF Interval history: Patient awake, alert, in no acute respiratory distress, s/p cardiac cath which showed mild nonobstructive CAD. Objective - Vital Signs Vital signs: Vital Signs - 12hr 03/13/18 03/14/18 03/14/18 23:55 03:09 05:53 Temperature 98.3 F 98.3 F Pulse Rate 78 92 H 92 H Pulse Rate [ Anterior Bilateral Throughout] Respiratory 18 18 Rate Respiratory Rate [Anterior Bilateral Throughout] Blood Pressure 131/97 134/83 134/83 O2 Sat by Pulse 99 98 Oximetry 03/14/18 03/14/18 03/14/18 08:42 08:43 09:38 Temperature 98.3 F Pulse Rate Pulse Rate [ 124 H 115 H Anterior Bilateral Throughout] Respiratory Rate Respiratory 19 19 Rate [Anterior Bilateral Throughout] Blood Pressure O2 Sat by Pulse 99 Oximetry 03/14/18 09:39 Temperature Pulse Rate 137 H Pulse Rate [ Anterior Bilateral Throughout] Respiratory 20 Rate Respiratory Rate [Anterior Bilateral Throughout] Blood Pressure 134/82 O2 Sat by Pulse 96 Oximetry - General Appearance General appearance: well-developed, appears stated age, chronically ill EENT: ATNC, PERRL, mucous membranes moist Neck: no JVD Respiratory: Present: Decreased Breath Sounds Cardiology: regular, S1S2 Gastrointestinal: normoactive bowel sounds Integumentary: no rash, other (no edema ) Neurologic: no focal deficit, alert and oriented x3, strength 5/5, CN 3-12 intact Psychiatric: mood/affect appropriate, cooperative - Lab 03/13/18 05:46 03/14/18 05:45 Most recent lab results Calcium 9.0 mg/dL (8.4-10.2) 03/14/18 05:45 Magnesium 1.70 mg/dL (1.7-2.3) 03/06/18 17:16 Medications & Allergies - Medications Allergies/Adverse Reactions: Allergies lisinopril Allergy (Verified 03/06/18 16:33) Shortness of Breath Home Medications: Home Medications Medication Instructions Recorded Confirmed Last Taken Type [place]-3/Dha/Epa/Fish Oil [Fish Oil 1,000 mg PO DAILY 08/09/17 03/12/18 08/09/17 History 1,000 mg Softgel] Alphagan P 0.1% 1 drop OU BID 08/10/17 03/12/18 08/09/17 History AtorvaSTATin 40 mg PO DAILY 08/10/17 03/12/18 08/09/17 History Magnesium Oxide 400 mg PO DAILY 08/10/17 03/12/18 08/09/17 History Metformin HCl 1,000 mg PO HS #30 tablet 08/16/17 03/12/18 Unknown Rx Pantoprazole [Protonix TAB] 40 mg PO QDAY #30 tablet 08/16/17 03/12/18 Unknown Rx Carvedilol [Coreg] 25 mg PO BID #60 tablet 03/12/18 Unknown Rx Furosemide [Lasix TAB] 40 mg PO QDAY #30 tablet 03/12/18 Unknown Rx Gabapentin [Neurontin] 100 mg PO HS #30 capsule 03/12/18 Unknown Rx ISOSORBIDE MONOnitrate [Imdur ER] 30 mg PO DAILY #30 tablet 03/12/18 Unknown Rx Latanoprost 0.005% 1 drops OU HS #1 bottle 03/12/18 Unknown Rx Losartan [Cozaar] 100 mg PO QDAY #30 tablet 03/12/18 Unknown Rx Montelukast [Singulair] 10 mg PO 1800 #30 tablet 03/12/18 Unknown Rx Potassium Chloride [K-Dur] 20 meq PO BID 30 Days tablet 03/12/18 Unknown Rx glipiZIDE [Glucotrol] 10 mg PO QDDIAB #30 tablet 03/12/18 Unknown Rx hydrALAZINE [Apresoline TAB] 50 mg PO Q8HR #90 tablet 03/12/18 Unknown Rx Warfarin [Coumadin] 5 mg PO DAILY@1700 #30 tablet 03/14/18 Unknown Rx Active Medications: Generic Name Dose Route Start Last Admin Trade Name Freq PRN Reason Stop Dose Admin Acetaminophen 650 mg 03/06/18 21:57 03/13/18 02:50 Tylenol PO 650 mg Q4H PRN Administration Pain MILD(1-3)/Fever >100.5/GARCIA Albuterol/Ipratropium 1 ampul 03/07/18 08:00 03/14/18 08:42 Duoneb *Not For Prn Use* IH 1 ampul QIDRT NANCIE Administration Atorvastatin Calcium 40 mg 03/07/18 22:00 03/13/18 21:58 Lipitor PO 40 mg QHS NANCIE Administration Carvedilol 25 mg 03/10/18 11:00 03/14/18 09:30 Coreg PO 25 mg BID NANCIE Administration Dextrose 50 ml 03/06/18 21:57 03/13/18 17:42 D50w (25gm) Syringe IV 50 ml PRN PRN Administration Hypoglycemia Digoxin 0.25 mg 03/14/18 12:00 Lanoxin IV 03/15/18 06:01 Q6H NANCIE Famotidine 20 mg 03/07/18 10:00 03/14/18 09:30 Pepcid PO 20 mg QAM NANCIE Administration Furosemide 40 mg 03/14/18 18:00 Lasix IV 0600,1800 NANCIE Gabapentin 100 mg 03/07/18 00:39 03/13/18 21:58 Neurontin PO 100 mg HS NANCIE Administration Heparin Sodium (Porcine) 5,000 unit 03/13/18 14:00 03/14/18 05:53 Heparin SUB-Q 5,000 unit Q8HR NANCIE Administration Hydralazine HCl 50 mg 03/11/18 22:00 03/14/18 05:53 Apresoline PO 50 mg Q8HR NANCIE Administration Hydromorphone HCl 0.5 mg 03/06/18 21:57 03/13/18 15:03 Dilaudid IV 0.5 mg Q3H PRN Administration Pain , Severe (7-10) Milrinone Lactate/Dextrose 20 mg in 100 mls @ 9.09 mls/hr 03/12/18 16:00 03/14/18 06:05 Milrinone-D5w 20 Mg/100 Ml IV 02/07/19 15:59 0.375 mcg/kg/min TITR NANCIE 9.09 mls/hr Administration 0.375 MCG/KG/MIN Insulin Glargine 10 units 03/13/18 22:00 03/13/18 22:56 Lantus SUB-Q Not Given QHS [facility] Insulin Human Lispro 0 unit 03/07/18 07:30 03/14/18 09:31 Humalog SUB-Q Not Given ACHS [facility] Protocol Isosorbide Mononitrate 30 mg 03/07/18 10:00 03/14/18 09:30 Imdur PO 30 mg DAILY NANCIE Administration Latanoprost 1 drops 03/07/18 22:00 03/13/18 21:59 Latanoprost 0.005% OU 1 drops HS NANCIE Administration Losartan Potassium 100 mg 03/07/18 10:00 03/14/18 09:31 Cozaar PO 100 mg QDAY NANCIE Administration Magnesium Oxide 400 mg 03/07/18 10:00 03/14/18 09:30 Mag-Ox PO 400 mg DAILY [facility] Administration Miscellaneous Medication 1 drop 03/07/18 10:00 03/14/18 09:31 Alphagan P 0.1% OU 1 drop BID NANCIE Administration Montelukast Sodium 10 mg 03/07/18 18:00 03/13/18 19:07 Singulair PO 10 mg 1800 NANCIE Administration Ondansetron HCl 4 mg 03/06/18 21:57 Zofran IV Q8H PRN Nausea And Vomiting Potassium Chloride 20 meq 03/08/18 10:00 03/14/18 09:30 K-Dur PO 20 meq BID NANCIE Administration Sodium Chloride 10 ml 03/06/18 22:00 03/14/18 09:31 Sodium Chloride Flush Syringe 10 Ml IV 10 ml BID NANCIE Administration Sodium Chloride 10 ml 03/06/18 21:57 03/12/18 09:33 Sodium Chloride Flush Syringe 10 Ml IV 10 ml PRN PRN Administration LINE FLUSH Warfarin Sodium 5 mg 03/13/18 17:00 03/13/18 19:08 Coumadin PO 5 mg DAILY@1700 NANCIE Administration
[2018-03-14] MEDS: LANOXIN IV SCH ×2 (11:21→18:31)
[2018-03-14] MEDS: DILAUDID IV PRN ×2 (11:21→18:26)
[2018-03-14] MEDS: COUMADIN PO SCH (16:46)
[2018-03-14] MEDS: SINGULAIR PO SCH (18:27)
[2018-03-14] MEDS: LASIX IV SCH (18:27)
[2018-03-14] MEDS: NEURONTIN PO SCH (22:26)
[2018-03-14] MEDS: LATANOPROST 0.005% OU SCH (22:27)
[2018-03-14] MEDS: LANTUS SUB-Q SCH (22:36)
[2018-03-15] MEDS: LANOXIN IV SCH ×2 (00:59→06:27)
[2018-03-15] MEDS: MILRINONE-D5W 20 MG/100 ML 20 MG/100 ML BAG IV SCH (03:57)
[2018-03-15] MEDS: HEPARIN SUB-Q SCH (06:24)
[2018-03-15] MEDS: LASIX IV SCH ×2 (06:24→17:11)
[2018-03-15 06:26] LABS: INR 1.4 (0.87-1.13)
[2018-03-15] MEDS: APRESOLINE PO SCH ×3 (06:27→22:04)
[2018-03-15 06:45] LABS: Calcium 9.2 mg/dL (8.4-10.2)
[2018-03-15] MEDS: DUONEB *Not for PRN Use IH SCH ×4 (08:57→20:43)
[2018-03-15] MEDS: COZAAR PO SCH (09:32)
[2018-03-15] MEDS: PEPCID PO SCH (09:32)
[2018-03-15] MEDS: IMDUR PO SCH (09:32)
[2018-03-15] MEDS: K-DUR PO SCH ×2 (09:33→22:04)
[2018-03-15] MEDS: HumaLOG SUB-Q SCH ×4 (09:33→22:05)
[2018-03-15] MEDS: COREG PO SCH ×2 (09:33→22:04)
[2018-03-15] MEDS: MAG-OX PO SCH (09:33)
[2018-03-15] MEDS: SODIUM CHLORIDE FLUSH SYRINGE 10 ML IV SCH ×2 (09:34→22:18)
[2018-03-15] MEDS: ALPHAGAN P 0.1% OU SCH ×2 (09:34→22:16)
--- NOTE | 2018-03-15 10:06 | Progress Note ---
Assessment and Plan - Patient Problems (1) Acute on chronic systolic heart failure Current Visit: Yes Status: Acute Plan to address problem: It will be recalled that her cardiac catheterization demonstrated relatively low intracardiac filling pressures with left ventricular filling pressures of 20-25, indicating that heart failure and fluid overload have been optimally treated and compensated. Conversely, she has severe pulmonary hypertension, PA systolic pressure of 86, indicating severe pulmonary disease contributing to her chronic dyspnea. Recommend pulmonary medicine assessment and management of continued dyspnea at rest. (2) Severe pulmonary arterial systolic hypertension Current Visit: Yes Status: Acute Plan to address problem: It will be recalled that her cardiac catheterization demonstrated relatively low intracardiac filling pressures with left ventricular filling pressures of 20-25, indicating that heart failure and fluid overload have been optimally treated and compensated. Conversely, she has severe pulmonary hypertension, PA systolic pressure of 86, indicating severe pulmonary disease contributing to her chronic dyspnea. Recommend pulmonary medicine assessment and management of continued dyspnea at rest. Subjective Date of service: 03/15/18 Principal diagnosis: JJ, HFrEF Interval history: The patient still has mild to moderate breathlessness on bedrest. No chest pain, no edema. It will be recalled that her cardiac catheterization demonstrated relatively low intracardiac filling pressures with left ventricular filling pressures of 20-25, indicating that heart failure and fluid overload have been optimally treated and compensated. Conversely, she has severe pulmonary hypertension, PA systolic pressure of 86, indicating severe pulmonary disease contributing to her chronic dyspnea. Objective Vital Signs Temp Pulse Pulse Resp Resp BP Pulse Ox 03/15/18 08:58 94 H 18 98 03/15/18 08:57 92 H 17 03/15/18 08:26 88 18 124/60 92 03/15/18 08:25 98.2 F 03/15/18 06:27 90 108/51 03/15/18 04:45 98.3 F 87 18 108/51 91 03/15/18 00:59 127 H 03/14/18 23:41 98.0 F 99 H 18 103/61 91 03/14/18 22:29 140 H 134/67 03/14/18 22:00 122 H 03/14/18 20:51 88 03/14/18 20:44 106 H 18 03/14/18 20:32 102 H 18 03/14/18 19:40 98.3 F 102 H 18 134/67 95 03/14/18 18:31 148 H 03/14/18 17:27 132 H 20 111/52 95 03/14/18 17:26 97.8 F 03/14/18 16:28 108 H 19 03/14/18 14:00 109 H 18 03/14/18 11:30 116 H 20 108/60 95 03/14/18 11:28 97.7 F 03/14/18 11:21 154 H - Physical Examination General: Other (mild respiratory distress) HEENT: Positive: PERRL Neck: Positive: trachea midline Cardiac: Positive: Reg Rate and Rhythm Lungs: Positive: Decreased Breath Sounds Neuro: Positive: Grossly Intact Abdomen: Positive: Soft Skin: Positive: Clear Extremities: Absent: edema - Labs and Meds Coagulation 03/15/18 Range/Units 05:26 PT 17.6 H (12.2-14.9) Sec. INR 1.40 H (0.87-1.13) Comprehensive Metabolic Panel 03/15/18 Range/Units 05:26 Sodium 137 (137-145) mmol/L Potassium 4.5 (3.6-5.0) mmol/L Chloride 101.0 (98-107) mmol/L Carbon Dioxide 24 (22-30) mmol/L BUN 22 H (7-17) mg/dL Creatinine 1.4 H (0.7-1.2) mg/dL Glucose 148 H (65-100) mg/dL Calcium 9.2 (8.4-10.2) mg/dL - Imaging and Cardiology EKG: report reviewed (A fib 68/min LVH )
--- NOTE | 2018-03-15 12:03 | XRay Report ---
ROUTINE CHEST, TWO VIEWS: HISTORY: Short of breath. Mild cardiomegaly and mild central pulmonary venous congestion are stable since 03/06/18. The lungs are clear. No evidence for pneumonia, CHF or pneumothorax. The bony structures are grossly intact. IMPRESSION: Stable mild cardiomegaly and pulmonary venous congestion. No acute process.
--- NOTE | 2018-03-15 13:44 | Consultation ---
History of Present Illness Reason for consult: dyspnea, other (CHF) History of present illness: Called to evaluate case of a 67-year-old -[place] female, admitted with a history of shortness of breath and background history of dilated cardiomyopathy. The patient underwent evaluation by EMS and cardiology was s tarted on diuretics for her cardiac treatment. Her medical information is limited but, she reports prior history of what appears to be pneumonia with respiratory failure 5 years ago. Per history, she reportedly was intubated and had medically induced coma for some days. She eventually had a trach and was discharged to rehabilitation. Her respiratory status after this is not very clear, but she declares that she has been using oxygen the last 2 years in [place]. She also had a CPAP machine but is not using it. It is unclear she's sleep with the oxygen on. She denies priors history of smoking but reported that she had been exposed to secondhand smoke. No wheezing or chest congestion reported. She's been using a LifeVest. Her main complaint right now is that she is very exercise limited, due to shortness of breath on minimal exertion and sometimes at rest. She still snores but denies breathing problems at nighttime. She just underwent right and left cardiac catheterization and we are called to evaluate for severe pulmonary hypertension. RHC data as noted below; Right atrial pressure was 18 mmHg Right ventricular pressure 85/20 mmHg, Right PA pressure 85/40 mmHg Mean PAWP was 20-25 mmHg Resistance not available Left ventricular end-diastolic pressure was 25 Cardiac output was 4.4 L/m Chest x-rays were remarkable on admission for cardiomegaly and pulmonary vascular congestion with multiple devices in place. See report. Chest CT scan also showed cardiomegaly with borderline aneurysmal dilatation, mild coarsening peripheral interstitial changes in the upper peripheral lobes Called to evaluate. Patient declares no additional complaints at this time Past History Past Medical History: diabetes, hypertension, other (Arthritis) Past Surgical History: No surgical history Social history: no significant social history Family history: no significant family history Medications and Allergies Allergies Allergy/AdvReac Type Severity Reaction Status Date / Time lisinopril Allergy Shortness Verified 03/06/18 16:33 of Breath Home Medications Medication Instructions Recorded Confirmed Last Taken Type [place]-3/Dha/Epa/Fish Oil [Fish Oil 1,000 mg PO DAILY 08/09/17 03/12/18 08/09/17 History 1,000 mg Softgel] Alphagan P 0.1% 1 drop OU BID 08/10/17 03/12/18 08/09/17 History AtorvaSTATin 40 mg PO DAILY 08/10/17 03/12/18 08/09/17 History Magnesium Oxide 400 mg PO DAILY 08/10/17 03/12/18 08/09/17 History Metformin HCl 1,000 mg PO HS #30 tablet 08/16/17 03/12/18 Unknown Rx Pantoprazole [Protonix TAB] 40 mg PO QDAY #30 tablet 08/16/17 03/12/18 Unknown Rx Carvedilol [Coreg] 25 mg PO BID #60 tablet 03/12/18 Unknown Rx Furosemide [Lasix TAB] 40 mg PO QDAY #30 tablet 03/12/18 Unknown Rx Gabapentin [Neurontin] 100 mg PO HS #30 capsule 03/12/18 Unknown Rx ISOSORBIDE MONOnitrate [Imdur ER] 30 mg PO DAILY #30 tablet 03/12/18 Unknown Rx Latanoprost 0.005% 1 drops OU HS #1 bottle 03/12/18 Unknown Rx Losartan [Cozaar] 100 mg PO QDAY #30 tablet 03/12/18 Unknown Rx Montelukast [Singulair] 10 mg PO 1800 #30 tablet 03/12/18 Unknown Rx Potassium Chloride [K-Dur] 20 meq PO BID 30 Days tablet 03/12/18 Unknown Rx glipiZIDE [Glucotrol] 10 mg PO QDDIAB #30 tablet 03/12/18 Unknown Rx hydrALAZINE [Apresoline TAB] 50 mg PO Q8HR #90 tablet 03/12/18 Unknown Rx Warfarin [Coumadin] 5 mg PO DAILY@1700 #30 tablet 03/14/18 Unknown Rx Active Meds: Active Medications Acetaminophen (Tylenol) 650 mg PO Q4H PRN PRN Reason: Pain MILD(1-3)/Fever >100.5/GARCIA Last Admin: 03/13/18 02:50 Dose: 650 mg Documented by: Albuterol/Ipratropium (Duoneb *Not For Prn Use*) 1 ampul QIDRT [facility] Last Admin: 03/15/18 08:57 Dose: 1 ampul Documented by: Atorvastatin Calcium (Lipitor) 40 mg PO QHS [facility] Last Admin: 02/06/19 22:26 Dose: 40 mg Documented by: Carvedilol (Coreg) 25 mg PO BID [facility] Last Admin: 03/15/18 09:33 Dose: 25 mg Documented by: Dextrose (D50w (25gm) Syringe) 50 ml IV PRN PRN PRN Reason: Hypoglycemia Last Admin: 03/13/18 17:42 Dose: 50 ml Documented by: Digoxin (Lanoxin) 0.25 mg PO DAILY@1700 NANCIE Enoxaparin Sodium (Lovenox) 80 mg 1 mg/kg (80 mg) SUB-Q Q12HR [facility] Famotidine (Pepcid) 20 mg PO QAM [facility] Last Admin: 03/15/18 09:32 Dose: 20 mg Documented by: Furosemide (Lasix) 40 mg IV 0600,1800 [facility] Last Admin: 03/15/18 06:24 Dose: 40 mg Documented by: Gabapentin (Neurontin) 100 mg PO [facility] Last Admin: 03/14/18 22:26 Dose: 100 mg Documented by: Hydralazine HCl (Apresoline) 50 mg PO Q8HR [facility] Last Admin: 03/15/18 06:27 Dose: 50 mg Documented by: Hydromorphone HCl (Dilaudid) 0.5 mg IV Q3H PRN PRN Reason: Pain , Severe (7-10) Last Admin: 03/14/18 18:26 Dose: 0.5 mg Documented by: Milrinone Lactate/Dextrose (Milrinone-D5w 20 Mg/100 Ml) 20 mg in 100 mls @ 9.09 mls/hr IV TITR [facility] Stop: 03/15/18 15:59 Last Admin: 03/15/18 03:57 Dose: 0.375 mcg/kg/min, 9.09 mls/hr Documented by: Insulin Glargine (Lantus) [facility] Last Admin: 03/14/18 22:36 Dose: Not Given Documented by: Insulin Human Lispro (Humalog) 0 unit SUB-Q ACHS [facility]; Protocol Last Admin: 03/15/18 09:33 Dose: 2 unit Documented by: Isosorbide Mononitrate (Imdur) 30 mg PO DAILY [facility] Last Admin: 03/15/18 09:32 Dose: 30 mg Documented by: Latanoprost (Latanoprost 0.005%) 1 drops OU [facility] Last Admin: 03/14/18 22:27 Dose: 1 drops Documented by: Losartan Potassium (Cozaar) 100 mg PO QDAY [facility] Last Admin: 03/15/18 09:32 Dose: 100 mg Documented by: Magnesium Oxide (Mag-Ox) 400 mg PO DAILY [facility] Last Admin: 03/15/18 09:33 Dose: 400 mg Documented by: Miscellaneous Medication (Alphagan P 0.1%) 1 drop OU BID [facility] Last Admin: 03/15/18 09:34 Dose: 1 drop Documented by: Montelukast Sodium (Singulair) 10 mg PO 1800 [facility] Last Admin: 03/14/18 18:27 Dose: 10 mg Documented by: Ondansetron HCl (Zofran) 4 mg IV Q8H PRN PRN Reason: Nausea And Vomiting Potassium Chloride (K-Dur) 20 meq PO BID [facility] Last Admin: 03/15/18 09:33 Dose: 20 meq Documented by: Sodium Chloride (Sodium Chloride Flush Syringe 10 Ml) 10 ml IV BID [facility] Last Admin: 03/15/18 09:34 Dose: 10 ml Documented by: Sodium Chloride (Sodium Chloride Flush Syringe 10 Ml) 10 ml IV PRN PRN PRN Reason: LINE FLUSH Last Admin: 03/12/18 09:33 Dose: 10 ml Documented by: Warfarin Sodium (Coumadin) 5 mg PO DAILY@1700 [facility] Last Admin: 03/14/18 16:46 Dose: 5 mg Documented by: Review of Systems All systems: negative Physical Examination Vital signs: Vital Signs Temp Pulse Resp BP Pulse Ox 97.6 F 72 20 166/99 95 03/06/18 16:33 03/06/18 16:33 03/06/18 16:33 03/06/18 16:33 03/06/18 16:33 General appearance: no acute distress, alert Eyes: non-icteric ENT: oropharynx moist, other (Mallampati 3) Neck: supple, no JVD Ascultation: Bilateral: clear, diminished breath sounds Cardiovascular: irregular rhythm Gastrointestinal: normoactive bowel sounds, non-distended Integumentary: normal Extremities: no cyanosis, no edema Musculoskeletal: no deformities normal mental status, non-focal exam mood appropriate Results - Laboratory Findings CBC and BMP: 03/13/18 05:46 03/15/18 05:26 PT/INR, D-dimer PT 17.6 Sec. (12.2-14.9) H 03/15/18 05:26 INR 1.40 (0.87-1.13) H 03/15/18 05:26 Abnormal lab findings: Abnormal Labs 03/06/18 03/06/18 03/06/18 17:16 17:16 17:16 MCV 76 L MCH 25 L RDW 17.9 H [place] % (Auto) 10.3 H PT 45.5 H INR 4.86 H Potassium Chloride BUN 28 H Creatinine 1.4 H Glucose 183 H POC Glucose Hemoglobin A1c Alkaline Phosphatase 143 H NT-Pro-B Natriuret Pep 93031 H Albumin 03/06/18 03/06/18 03/07/18 17:16 20:58 05:35 MCV 76 L MCH 25 L RDW 17.7 H [place] % (Auto) 12.8 H PT INR Potassium Chloride BUN Creatinine Glucose POC Glucose 178 H Hemoglobin A1c 8.9 H Alkaline Phosphatase NT-Pro-B Natriuret Pep Albumin 03/07/18 03/07/18 03/07/18 05:35 05:47 13:02 MCV MCH RDW [place] % (Auto) PT INR Potassium 3.4 L Chloride BUN 25 H Creatinine 1.3 H Glucose 132 H POC Glucose 120 H 214 H Hemoglobin A1c Alkaline Phosphatase 136 H NT-Pro-B Natriuret Pep Albumin 3.8 L 03/07/18 03/07/18 03/08/18 14:58 21:01 05:45 MCV MCH RDW [place] % (Auto) PT 35.3 H 39.6 H INR 3.49 H 4.06 H Potassium Chloride BUN Creatinine Glucose POC Glucose 179 H Hemoglobin A1c Alkaline Phosphatase NT-Pro-B Natriuret Pep Albumin 03/08/18 03/08/18 03/08/18 06:27 10:37 15:58 MCV MCH RDW [place] % (Auto) PT INR Potassium Chloride BUN Creatinine Glucose POC Glucose 158 H 201 H 168 H Hemoglobin A1c Alkaline Phosphatase NT-Pro-B Natriuret Pep Albumin 03/08/18 03/09/18 03/09/18 21:53 05:08 05:08 MCV MCH RDW [place] % (Auto) PT 35.8 H INR 3.55 H Potassium Chloride BUN 28 H Creatinine 1.6 H Glucose 154 H POC Glucose 168 H Hemoglobin A1c Alkaline Phosphatase NT-Pro-B Natriuret Pep Albumin 03/09/18 03/09/18 03/09/18 06:24 12:05 16:57 MCV MCH RDW [place] % (Auto) PT INR Potassium Chloride BUN Creatinine Glucose POC Glucose 142 H 214 H 155 H Hemoglobin A1c Alkaline Phosphatase NT-Pro-B Natriuret Pep Albumin 03/09/18 03/10/18 03/10/18 21:23 05:43 05:43 MCV MCH RDW [place] % (Auto) PT 23.3 H INR 2.02 H Potassium Chloride BUN 23 H Creatinine Glucose 171 H POC Glucose 207 H Hemoglobin A1c Alkaline Phosphatase NT-Pro-B Natriuret Pep Albumin 03/10/18 03/10/18 03/10/18 06:10 12:07 17:09 MCV MCH RDW [place] % (Auto) PT INR Potassium Chloride BUN Creatinine Glucose POC Glucose 171 H 220 H 190 H Hemoglobin A1c Alkaline Phosphatase NT-Pro-B Natriuret Pep Albumin 03/10/18 03/11/18 03/11/18 20:50 03:02 03:02 MCV MCH RDW [place] % (Auto) PT 20.0 H INR 1.66 H Potassium Chloride BUN 26 H Creatinine 1.4 H Glucose 142 H POC Glucose 166 H Hemoglobin A1c Alkaline Phosphatase NT-Pro-B Natriuret Pep Albumin 03/11/18 03/11/18 03/11/18 06:14 07:57 12:13 MCV MCH RDW [place] % (Auto) PT INR Potassium Chloride BUN Creatinine Glucose POC Glucose 134 H 133 H 148 H Hemoglobin A1c Alkaline Phosphatase NT-Pro-B Natriuret Pep Albumin 03/11/18 03/11/18 03/12/18 16:48 20:49 05:16 MCV MCH RDW [place] % (Auto) PT 18.0 H INR 1.44 H Potassium Chloride BUN Creatinine Glucose POC Glucose 172 H 149 H Hemoglobin A1c Alkaline Phosphatase NT-Pro-B Natriuret Pep Albumin 03/12/18 03/12/18 03/12/18 05:19 06:02 11:51 MCV MCH RDW [place] % (Auto) PT INR Potassium Chloride BUN 28 H Creatinine 1.3 H Glucose 136 H POC Glucose 138 H 138 H Hemoglobin A1c Alkaline Phosphatase NT-Pro-B Natriuret Pep Albumin 03/12/18 03/12/18 03/12/18 16:47 17:37 21:34 MCV MCH RDW [place] % (Auto) PT INR Potassium Chloride BUN Creatinine Glucose POC Glucose 282 H 172 H 133 H Hemoglobin A1c Alkaline Phosphatase NT-Pro-B Natriuret Pep Albumin 03/13/18 03/13/18 03/13/18 05:46 05:46 05:46 MCV 77 L MCH 24 L RDW 17.8 H [place] % (Auto) PT 16.9 H INR 1.33 H Potassium Chloride 108.3 H BUN 25 H Creatinine Glucose 113 H POC Glucose Hemoglobin A1c Alkaline Phosphatase NT-Pro-B Natriuret Pep Albumin 03/13/18 03/13/18 03/13/18 05:46 12:33 17:37 MCV MCH RDW [place] % (Auto) PT INR Potassium Chloride BUN Creatinine Glucose POC Glucose 107 H 386 H < 40 L Hemoglobin A1c Alkaline Phosphatase NT-Pro-B Natriuret Pep Albumin 03/13/18 03/13/18 03/14/18 18:43 20:49 05:21 MCV MCH RDW [place] % (Auto) PT INR Potassium Chloride BUN Creatinine Glucose POC Glucose 201 H 124 H 121 H Hemoglobin A1c Alkaline Phosphatase NT-Pro-B Natriuret Pep Albumin 03/14/18 03/14/18 03/14/18 05:45 05:45 11:30 MCV MCH RDW [place] % (Auto) PT 17.0 H INR 1.34 H Potassium Chloride BUN 20 H Creatinine Glucose 130 H POC Glucose 209 H Hemoglobin A1c Alkaline Phosphatase NT-Pro-B Natriuret Pep Albumin 03/14/18 03/14/18 03/15/18 17:28 20:39 05:26 MCV MCH RDW [place] % (Auto) PT INR Potassium Chloride BUN 22 H Creatinine 1.4 H Glucose 148 H POC Glucose 171 H 144 H Hemoglobin A1c Alkaline Phosphatase NT-Pro-B Natriuret Pep Albumin 03/15/18 03/15/18 05:26 06:01 MCV MCH RDW [place] % (Auto) PT 17.6 H INR 1.40 H Potassium Chloride BUN Creatinine Glucose POC Glucose 153 H Hemoglobin A1c Alkaline Phosphatase NT-Pro-B Natriuret Pep Albumin Assessment and Plan Severe dyspnea. Consistent with [place] [employer] grade 4. Multifactorial Severe pulmonary hypertension. Likely dominant class II (PAH definition requires PAWP of < 15 mmHg), but I cannot rule out a class III component (nocturnal hypoventilation, nocturnal hypoxemia) WILDER. Poorly treated per history. Doubt is the only reason for her pulmonary hypertension, if pressures are over 30-35 Past medical history is respiratory failure secondary to pneumonia Status post tracheostomy. No stridor on physical Recommendations Continue with CHF/cardiomyopathy management and treatment Update oxygen treatment status; check R/A oximetry at rest or ambulate patient as tolerated. Supplemental oxygen if < 89% Outpatient pulmonary function testing, completing including FVL and DLCO evaluation Advise patient to use her CPAP at night. I will recommend to bled oxygen in with her CPAP, if the patient is already hypoxic, since nocturnal hypoxemia can trigger significant pulmonary Hypertension Copy of records from [place] Re: Patient, pulmonary and sleep apnea testing We'll consider with testing with polysomnography after the above Consider HIV testing for pulmonary hypertension evaluation Once stabilized, ventilation perfusion scanning for CTEPH Repeat RT heart Catheterization and or echo later on after all the above and review for additional treatment measures. Discussed with patient detail. All questions answered. Discussed with patient follow-up at the pulmonary office for the above after discharge Thanks
--- NOTE | 2018-03-15 14:18 | Progress Note ---
Assessment and Plan Assessment and plan: Patient 67-year-old woman presents with orthopnea, PND and shortness of breath. Hospital course The patient has been diuresed, continued diuresis She was seen by cardiology, who agreed with the plan CHF EF 15%, meds been optimized by cardiology Atrial fibrillation on warfarin; continue rate control medications, -INR was supratherapeutic, therefore warfarin was held for several days, then was restarted when INR was at goal. -Blood pressure medications were optimized - K was repleted -Cr bumped up after lasix, therefore it was held x 2 days, cr improved, dw Dr Koo, lasix restarted now -has received lifevest -resp status worse today,cont milrinone drip -Cardiac cath done on 03/13 shows severe pulmonary hypertension, no coronary obstruction -repeat cxr today shows pulm edema, pulm consulted -will likely need home oxygen upon dc dw with her PCP at [facility] at [phone] Diagnoses Acute on chronic systolic CHF Atrial fibrillation with hypercoagulable state Coagulopathy due to warfarin Hypertension type 2 diabetes GERD Glaucoma Hypertensive urgency Hypokalemia JJ upon CKD stage 3/ vasomotor nephropathy Dc in 1-2 days History Interval history: Review of systems Constitutional: No fevers, no malaise, no joint pains CVS: Orthopnea is worse, c/o sob and YAÑEZ, and is hypoxic GI: No abdominal pain, no diarrhea, no vomiting, no constipation Respiratory: no wheezing, no coughing Hospitalist Physical - Physical exam Narrative exam: General.: moderate resp distress HEENT: Moist mucous membranes, extraocular muscles intact, no lymphadenopathy Neck: supple Cardiac: S1-S2 heard Lungs: crackles in bases Abdomen: soft , nontender, nondistended, bowel sounds positive Extremities: no edema clubbing or cyanosis Skin: no rash or lesions Neurologic: no gross focal deficits Psych: calm, and cooperative - Constitutional Vitals: Temp Pulse Resp BP Pulse Ox 97.6 F 95 H 19 100/70 93 03/15/18 12:23 03/15/18 13:24 03/15/18 13:24 03/15/18 12:25 03/15/18 12:25 General appearance: Present: no acute distress, well-nourished Results - Labs CBC & Chem 7: 03/13/18 05:46 03/15/18 05:26 Labs: Laboratory Last Values WBC 5.0 K/mm3 (4.5-11.0) 03/13/18 05:46 RBC 4.40 M/mm3 (3.65-5.03) 03/13/18 05:46 Hgb 10.7 gm/dl (10.1-14.3) 03/13/18 05:46 Hct 33.8 % (30.3-42.9) 03/13/18 05:46 MCV 77 fl (79-97) L 03/13/18 05:46 MCH 24 pg (28-32) L 03/13/18 05:46 MCHC 32 % (30-34) 03/13/18 05:46 RDW 17.8 % (13.2-15.2) H 03/13/18 05:46 Plt Count 211 K/mm3 (140-440) 03/13/18 05:46 Lymph % (Auto) 34.8 % (13.4-35.0) 03/07/18 05:35 [place] % (Auto) 12.8 % (0.0-7.3) H 03/07/18 05:35 Eos % (Auto) 1.7 % (0.0-4.3) 03/07/18 05:35 Baso % (Auto) 1.1 % (0.0-1.8) 03/07/18 05:35 Lymph # 1.8 K/mm3 (1.2-5.4) 03/07/18 05:35 [place] # 0.7 K/mm3 (0.0-0.8) 03/07/18 05:35 Eos # 0.1 K/mm3 (0.0-0.4) 03/07/18 05:35 Baso # 0.1 K/mm3 (0.0-0.1) 03/07/18 05:35 Seg Neutrophils % 49.6 % (40.0-70.0) 03/07/18 05:35 Seg Neutrophils # 2.5 K/mm3 (1.8-7.7) 03/07/18 05:35 PT 17.6 Sec. (12.2-14.9) H 03/15/18 05:26 INR 1.40 (0.87-1.13) H 03/15/18 05:26 Sodium 137 mmol/L (137-145) 03/15/18 05:26 Potassium 4.5 mmol/L (3.6-5.0) 03/15/18 05:26 Chloride 101.0 mmol/L (98-107) 03/15/18 05:26 Carbon Dioxide 24 mmol/L (22-30) 03/15/18 05:26 Anion Gap 17 mmol/L 03/15/18 05:26 BUN 22 mg/dL (7-17) H 03/15/18 05:26 Creatinine 1.4 mg/dL (0.7-1.2) H 03/15/18 05:26 Estimated GFR 45 ml/min 03/15/18 05:26 BUN/Creatinine Ratio 16 % 03/15/18 05:26 Glucose 148 mg/dL (65-100) H 03/15/18 05:26 POC Glucose 113 (70-105) H 03/15/18 12:31 Hemoglobin A1c 8.9 % (4-6) H 03/06/18 17:16 Calcium 9.2 mg/dL (8.4-10.2) 03/15/18 05:26 Magnesium 1.70 mg/dL (1.7-2.3) 03/06/18 17:16 Total Bilirubin 0.70 mg/dL (0.1-1.2) 03/07/18 05:35 AST 25 units/L (5-40) 03/07/18 05:35 ALT 30 units/L (7-56) 03/07/18 05:35 Alkaline Phosphatase 136 units/L (35-129) H 03/07/18 05:35 Troponin T < 0.010 ng/mL (0.00-0.029) 03/07/18 05:35 NT-Pro-B Natriuret Pep 72761 pg/mL (0-900) H 03/06/18 17:16 Total Protein 7.5 g/dL (6.3-8.2) 03/07/18 05:35 Albumin 3.8 g/dL (3.9-5) L 03/07/18 05:35 Albumin/Globulin Ratio 1.0 % 03/07/18 05:35 Urine Color Yellow (Yellow) 03/06/18 20:25 Urine Turbidity Clear (Clear) 03/06/18 20:25 Urine pH 6.0 (5.0-7.0) 03/06/18 20:25 Ur Specific [place] 1.005 (1.003-1.030) 03/06/18 20:25 Urine Protein 100 mg/dl mg/dL (Negative) 03/06/18 20:25 Urine Glucose (UA) Neg mg/dL (Negative) 03/06/18 20:25 Urine Ketones Neg mg/dL (Negative) 03/06/18 20:25 Urine Blood Neg (Negative) 03/06/18 20:25 Urine Nitrite Neg (Negative) 03/06/18 20:25 Urine Bilirubin Neg (Negative) 03/06/18 20:25 Urine Urobilinogen < 2.0 mg/dL (<2.0) 03/06/18 20:25 Ur Leukocyte Esterase Neg (Negative) 03/06/18 20:25 Urine WBC (Auto) 1.0 /HPF (0.0-6.0) 03/06/18 20:25 Urine RBC (Auto) 4.0 /HPF (0.0-6.0) 03/06/18 20:25 U Epithel Cells (Auto) 1.0 /HPF (0-13.0) 03/06/18 20:25 Nutrition/Malnutrition Assess - Dietary Evaluation Nutrition/Malnutrition Findings: Nutrition Notes Start: 03/07/18 15:17 Freq: Status: Active Protocol: Document 03/13/18 14:05 OH (Rec: 03/13/18 14:14 OH [id number]) Nutrition Notes Need for Assessment generated from: LOS Initial or Follow up Reassessment Current Diagnosis Diabetes Hypertension Heart Failure Hyperlipidemia Current Diet cardiac Labs/Tests Na 143 K+ 4.2 Glu 107 Ca 9.2 hgba1c 8.9 Pertinent Medications Humalog Coumadin Height 5 ft 4 in Weight 81.4 kg [place] Body Weight (kg) 54.54 BMI 30.8 Subjective/Other Information Pt. screened for LOS. Pt. lying in bed post cardiac cath . Family member present at bedside. #2 Nutrition Diagnosis Altered nutrition-related laboratory values Etiology uncontrolled DM As Evidenced by Signs and Symptoms [id number]; non compliance w/DM diet Is patient on ventilator? No Is Patient Ambulatory and/or Out of Bed No REE-([facility]-confined to bed) [phone] Calculation Used for Recommendations Carolee Noble Additional Notes FLUID: 1 mL/kcal PROTEIN: 1-1.4 G/KG/IBW (54-76 G/DAY) Nutrition Intervention Change Diet Order: Cardiac diet with consistent CHO Teaching Recipient Family Learning Readiness Fair Teaching Methods Discussion Handout Education Handouts Provided ADA CHO counting handout Barriers to Learning Motivation Age related Financial Environmental Social Goal #1 >75% kcal/protein needs to be met via po intake Goal #2 Improved blood Glu control Anticipated Discharge Needs: dm education Follow-Up By: 03/15/18 Additional Comments F/U: PO intake
[2018-03-15] MEDS: LOVENOX SUB-Q SCH ×2 (14:33→22:03)
--- NOTE | 2018-03-15 15:59 | Progress Note ---
Assessment and Plan - Patient Problems (1) Acute on chronic renal insufficiency Current Visit: Yes Status: Acute Plan to address problem: likely secondary to acute cardiorenal syndrome and diuretic effect. Cr ranging around 1.1-1.4mg/dl. volume status is stable, cont lasix 40mg IV bid, along with milrinone gtt. (2) Acute exacerbation of CHF (congestive heart failure) Current Visit: Yes Status: Acute Qualifiers: Heart failure type: unspecified Qualified Code(s): I50.9 - Heart failure, unspecified Plan to address problem: cont BB, ARB, loop diuretic. follow cardiology recommendations. (3) Chronic atrial fibrillation Current Visit: Yes Status: Acute Plan to address problem: rate control as per cardiology Subjective Date of service: 03/15/18 Principal diagnosis: JJ, HFrEF Interval history: Patient awake, alert, in no acute respiratory distress, pt remains on milrinone gtt Objective - Vital Signs Vital signs: Vital Signs - 12hr 03/15/18 03/15/18 03/15/18 04:45 06:27 08:25 Temperature 98.3 F 98.2 F Pulse Rate 87 90 Pulse Rate [ Anterior Bilateral Throughout] Respiratory 18 Rate Respiratory Rate [Anterior Bilateral Throughout] Blood Pressure 108/51 108/51 O2 Sat by Pulse 91 Oximetry 03/15/18 03/15/18 03/15/18 08:26 08:57 08:58 Temperature Pulse Rate 88 Pulse Rate [ 92 H 94 H Anterior Bilateral Throughout] Respiratory 18 Rate Respiratory 17 18 Rate [Anterior Bilateral Throughout] Blood Pressure 124/60 O2 Sat by Pulse 92 98 Oximetry 03/15/18 03/15/18 03/15/18 10:00 12:23 12:25 Temperature 97.6 F Pulse Rate 110 H 84 Pulse Rate [ Anterior Bilateral Throughout] Respiratory 20 Rate Respiratory Rate [Anterior Bilateral Throughout] Blood Pressure 100/70 O2 Sat by Pulse 93 Oximetry 03/15/18 03/15/18 13:23 13:24 Temperature Pulse Rate Pulse Rate [ 93 H 95 H Anterior Bilateral Throughout] Respiratory Rate Respiratory 18 19 Rate [Anterior Bilateral Throughout] Blood Pressure O2 Sat by Pulse Oximetry - General Appearance General appearance: well-developed, appears stated age, chronically ill EENT: ATNC, PERRL, mucous membranes moist Neck: no JVD Respiratory: Present: Decreased Breath Sounds Cardiology: regular, S1S2 Gastrointestinal: normoactive bowel sounds Integumentary: no rash, other (no edema ) Neurologic: no focal deficit, alert and oriented x3, strength 5/5, CN 3-12 intact Psychiatric: mood/affect appropriate, cooperative - Lab 03/13/18 05:46 03/15/18 05:26 Most recent lab results Calcium 9.2 mg/dL (8.4-10.2) 03/15/18 05:26 Magnesium 1.70 mg/dL (1.7-2.3) 03/06/18 17:16 Medications & Allergies - Medications Allergies/Adverse Reactions: Allergies lisinopril Allergy (Verified 03/06/18 16:33) Shortness of Breath Home Medications: Home Medications Medication Instructions Recorded Confirmed Last Taken Type [place]-3/Dha/Epa/Fish Oil [Fish Oil 1,000 mg PO DAILY 08/09/17 03/12/18 08/09/17 History 1,000 mg Softgel] Alphagan P 0.1% 1 drop OU BID 08/10/17 03/12/18 08/09/17 History AtorvaSTATin 40 mg PO DAILY 08/10/17 03/12/18 08/09/17 History Magnesium Oxide 400 mg PO DAILY 08/10/17 03/12/18 08/09/17 History Metformin HCl 1,000 mg PO HS #30 tablet 08/16/17 03/12/18 Unknown Rx Pantoprazole [Protonix TAB] 40 mg PO QDAY #30 tablet 08/16/17 03/12/18 Unknown Rx Carvedilol [Coreg] 25 mg PO BID #60 tablet 03/12/18 Unknown Rx Furosemide [Lasix TAB] 40 mg PO QDAY #30 tablet 03/12/18 Unknown Rx Gabapentin [Neurontin] 100 mg PO HS #30 capsule 03/12/18 Unknown Rx ISOSORBIDE MONOnitrate [Imdur ER] 30 mg PO DAILY #30 tablet 03/12/18 Unknown Rx Latanoprost 0.005% 1 drops OU HS #1 bottle 03/12/18 Unknown Rx Losartan [Cozaar] 100 mg PO QDAY #30 tablet 03/12/18 Unknown Rx Montelukast [Singulair] 10 mg PO 1800 #30 tablet 03/12/18 Unknown Rx Potassium Chloride [K-Dur] 20 meq PO BID 30 Days tablet 03/12/18 Unknown Rx glipiZIDE [Glucotrol] 10 mg PO QDDIAB #30 tablet 03/12/18 Unknown Rx hydrALAZINE [Apresoline TAB] 50 mg PO Q8HR #90 tablet 03/12/18 Unknown Rx Warfarin [Coumadin] 5 mg PO DAILY@1700 #30 tablet 03/14/18 Unknown Rx Active Medications: Generic Name Dose Route Start Last Admin Trade Name Freq PRN Reason Stop Dose Admin Acetaminophen 650 mg 03/06/18 21:57 03/13/18 02:50 Tylenol PO 650 mg Q4H PRN Administration Pain MILD(1-3)/Fever >100.5/GARCIA Albuterol/Ipratropium 1 ampul 03/07/18 08:00 03/15/18 13:22 Duoneb *Not For Prn Use* IH 1 ampul QIDRT NANCIE Administration Atorvastatin Calcium 40 mg 03/07/18 22:00 03/14/18 22:26 Lipitor PO 40 mg QHS NANCIE Administration Carvedilol 25 mg 03/10/18 11:00 03/15/18 09:33 Coreg PO 25 mg BID NANCIE Administration Dextrose 50 ml 03/06/18 21:57 03/13/18 17:42 D50w (25gm) Syringe IV 50 ml PRN PRN Administration Hypoglycemia Digoxin 0.25 mg 03/15/18 17:00 Lanoxin PO DAILY@1700 [facility] Enoxaparin Sodium 80 mg 03/15/18 12:00 03/15/18 14:33 Lovenox 1 mg/kg (80 mg) 80 mg SUB-Q Administration Q12HR [facility] Famotidine 20 mg 03/07/18 10:00 03/15/18 09:32 Pepcid PO 20 mg QAM NANCIE Administration Furosemide 40 mg 03/14/18 18:00 03/15/18 06:24 Lasix IV 40 mg 0600,1800 NANCIE Administration Gabapentin 100 mg 03/07/18 00:39 03/14/18 22:26 Neurontin PO 100 mg HS NANCIE Administration Hydralazine HCl 50 mg 03/11/18 22:00 03/15/18 14:34 Apresoline PO Not Given Q8HR NANCIE Hydromorphone HCl 0.5 mg 03/06/18 21:57 03/14/18 18:26 Dilaudid IV 0.5 mg Q3H PRN Administration Pain , Severe (7-10) Milrinone Lactate/Dextrose 20 mg in 100 mls @ 9.09 mls/hr 03/12/18 16:00 03/15/18 03:57 Milrinone-D5w 20 Mg/100 Ml IV 03/15/18 15:59 0.375 mcg/kg/min TITR NANCIE 9.09 mls/hr Administration 0.375 MCG/KG/MIN Insulin Glargine 10 units 03/13/18 22:00 03/14/18 22:36 Lantus SUB-Q Not Given QHS [facility] Insulin Human Lispro 0 unit 03/07/18 07:30 03/15/18 13:26 Humalog SUB-Q Not Given ACHS [facility] Protocol Isosorbide Mononitrate 30 mg 03/07/18 10:00 03/15/18 09:32 Imdur PO 30 mg DAILY NANCIE Administration Latanoprost 1 drops 03/07/18 22:00 03/14/18 22:27 Latanoprost 0.005% OU 1 drops HS NANCIE Administration Losartan Potassium 100 mg 03/07/18 10:00 03/15/18 09:32 Cozaar PO 100 mg QDAY NANCIE Administration Magnesium Oxide 400 mg 03/07/18 10:00 03/15/18 09:33 Mag-Ox PO 400 mg DAILY NANCIE Administration Miscellaneous Medication 1 drop 03/07/18 10:00 03/15/18 09:34 Alphagan P 0.1% OU 1 drop BID NANCIE Administration Montelukast Sodium 10 mg 03/07/18 18:00 03/14/18 18:27 Singulair PO 10 mg 1800 NANCIE Administration Ondansetron HCl 4 mg 03/06/18 21:57 Zofran IV Q8H PRN Nausea And Vomiting Potassium Chloride 20 meq 03/08/18 10:00 03/15/18 09:33 K-Dur PO 20 meq BID NANCIE Administration Sodium Chloride 10 ml 03/06/18 22:00 03/15/18 09:34 Sodium Chloride Flush Syringe 10 Ml IV 10 ml BID NANCIE Administration Sodium Chloride 10 ml 03/06/18 21:57 03/12/18 09:33 Sodium Chloride Flush Syringe 10 Ml IV 10 ml PRN PRN Administration LINE FLUSH Warfarin Sodium 5 mg 03/13/18 17:00 03/14/18 16:46 Coumadin PO 5 mg DAILY@1700 NANCIE Administration
[2018-03-15] MEDS: SINGULAIR PO SCH (17:10)
[2018-03-15] MEDS: LANOXIN PO SCH (17:10)
[2018-03-15] MEDS: COUMADIN PO SCH (17:11)
[2018-03-15] MEDS: NEURONTIN PO SCH (22:03)
[2018-03-15] MEDS: LANTUS SUB-Q SCH (22:05)
[2018-03-15] MEDS: LATANOPROST 0.005% OU SCH (22:06)
[2018-03-15] MEDS: DILAUDID IV PRN (23:06)
[2018-03-16] MEDS: APRESOLINE PO SCH ×2 (06:08→14:50)
[2018-03-16] MEDS: LASIX IV SCH ×2 (06:08→18:07)
[2018-03-16 06:30] LABS: INR 1.41 (0.87-1.13)
[2018-03-16] MEDS: DUONEB *Not for PRN Use IH SCH ×3 (08:15→15:59)
[2018-03-16] MEDS: HumaLOG SUB-Q SCH ×3 (09:33→18:19)
[2018-03-16] MEDS: DILAUDID IV PRN ×2 (09:47→14:51)
[2018-03-16] MEDS: LOVENOX SUB-Q SCH (09:48)
[2018-03-16] MEDS: COZAAR PO SCH (09:48)
[2018-03-16] MEDS: IMDUR PO SCH (09:49)
[2018-03-16] MEDS: K-DUR PO SCH (09:49)
[2018-03-16] MEDS: PEPCID PO SCH (09:50)
[2018-03-16] MEDS: COREG PO SCH (09:50)
[2018-03-16] MEDS: SODIUM CHLORIDE FLUSH SYRINGE 10 ML IV SCH (09:52)
[2018-03-16] MEDS: ALPHAGAN P 0.1% OU SCH (09:52)
[2018-03-16] MEDS: MAG-OX PO SCH (09:52)
--- NOTE | 2018-03-16 11:12 | Progress Note ---
Assessment and Plan - Patient Problems (1) Acute on chronic renal insufficiency Current Visit: Yes Status: Acute Plan to address problem: likely secondary to acute cardiorenal syndrome and diuretic effect. Cr ranging around 1.1-1.4mg/dl. volume status is stable, cont lasix 40mg IV bid, along with milrinone gtt. (2) Acute exacerbation of CHF (congestive heart failure) Current Visit: Yes Status: Acute Qualifiers: Heart failure type: unspecified Qualified Code(s): I50.9 - Heart failure, unspecified Plan to address problem: cont BB, ARB, loop diuretic along with inotropic support with milrinone. follow cardiology recommendations. (3) Chronic atrial fibrillation Current Visit: Yes Status: Acute Plan to address problem: rate control as per cardiology Subjective Date of service: 03/16/18 Principal diagnosis: JJ, HFrEF Interval history: Patient awake, alert, in no acute respiratory distress, pt remains on milrinone gtt Objective - Vital Signs Vital signs: Vital Signs - 12hr 03/15/18 03/16/18 03/16/18 23:40 04:00 08:33 Temperature 98.0 F 97.8 F 98.0 F Pulse Rate 76 75 75 Respiratory 12 16 20 Rate Blood Pressure 126/64 120/76 Blood Pressure 126/64 [Left] O2 Sat by Pulse 88 92 94 Oximetry 03/16/18 03/16/18 03/16/18 09:47 09:48 09:49 Temperature Pulse Rate 75 75 Respiratory 20 Rate Blood Pressure 120/76 120/76 Blood Pressure [Left] O2 Sat by Pulse Oximetry 03/16/18 09:50 Temperature Pulse Rate 75 Respiratory Rate Blood Pressure 120/76 Blood Pressure [Left] O2 Sat by Pulse Oximetry - General Appearance General appearance: well-developed, appears stated age EENT: ATNC, PERRL, mucous membranes moist Neck: no JVD Respiratory: Present: Decreased Breath Sounds Cardiology: regular, S1S2 Gastrointestinal: normoactive bowel sounds Integumentary: no rash, other (no edema ) Neurologic: no focal deficit, alert and oriented x3, strength 5/5, CN 3-12 intact Psychiatric: mood/affect appropriate, cooperative - Lab 03/13/18 05:46 03/15/18 05:26 Most recent lab results Calcium 9.2 mg/dL (8.4-10.2) 03/15/18 05:26 Magnesium 1.70 mg/dL (1.7-2.3) 03/06/18 17:16 Medications & Allergies - Medications Allergies/Adverse Reactions: Allergies lisinopril Allergy (Verified 03/06/18 16:33) Shortness of Breath Home Medications: Home Medications Medication Instructions Recorded Confirmed Last Taken Type [place]-3/Dha/Epa/Fish Oil [Fish Oil 1,000 mg PO DAILY 08/09/17 03/12/18 08/09/17 History 1,000 mg Softgel] Alphagan P 0.1% 1 drop OU BID 08/10/17 03/12/18 08/09/17 History AtorvaSTATin 40 mg PO DAILY 08/10/17 03/12/18 08/09/17 History Magnesium Oxide 400 mg PO DAILY 08/10/17 03/12/18 08/09/17 History Metformin HCl 1,000 mg PO HS #30 tablet 08/16/17 03/12/18 Unknown Rx Pantoprazole [Protonix TAB] 40 mg PO QDAY #30 tablet 08/16/17 03/12/18 Unknown Rx Carvedilol [Coreg] 25 mg PO BID #60 tablet 03/12/18 Unknown Rx Furosemide [Lasix TAB] 40 mg PO QDAY #30 tablet 03/12/18 Unknown Rx Gabapentin [Neurontin] 100 mg PO HS #30 capsule 03/12/18 Unknown Rx ISOSORBIDE MONOnitrate [Imdur ER] 30 mg PO DAILY #30 tablet 03/12/18 Unknown Rx Latanoprost 0.005% 1 drops OU HS #1 bottle 03/12/18 Unknown Rx Losartan [Cozaar] 100 mg PO QDAY #30 tablet 03/12/18 Unknown Rx Montelukast [Singulair] 10 mg PO 1800 #30 tablet 03/12/18 Unknown Rx Potassium Chloride [K-Dur] 20 meq PO BID 30 Days tablet 03/12/18 Unknown Rx glipiZIDE [Glucotrol] 10 mg PO QDDIAB #30 tablet 03/12/18 Unknown Rx hydrALAZINE [Apresoline TAB] 50 mg PO Q8HR #90 tablet 03/12/18 Unknown Rx Warfarin [Coumadin] 5 mg PO DAILY@1700 #30 tablet 03/14/18 Unknown Rx Active Medications: Generic Name Dose Route Start Last Admin Trade Name Freq PRN Reason Stop Dose Admin Acetaminophen 650 mg 03/06/18 21:57 03/13/18 02:50 Tylenol PO 650 mg Q4H PRN Administration Pain MILD(1-3)/Fever >100.5/GARCIA Albuterol/Ipratropium 1 ampul 03/07/18 08:00 03/16/18 08:15 Duoneb *Not For Prn Use* IH 1 ampul QIDRT NANCIE Administration Atorvastatin Calcium 40 mg 03/07/18 22:00 03/15/18 22:03 Lipitor PO 40 mg QHS NANCIE Administration Carvedilol 25 mg 03/10/18 11:00 03/16/18 09:50 Coreg PO 25 mg BID NANCIE Administration Dextrose 50 ml 03/06/18 21:57 03/13/18 17:42 D50w (25gm) Syringe IV 50 ml PRN PRN Administration Hypoglycemia Digoxin 0.25 mg 03/15/18 17:00 03/15/18 17:10 Lanoxin PO 0.25 mg DAILY@1700 NANCIE Administration Enoxaparin Sodium 80 mg 03/15/18 12:00 03/16/18 09:48 Lovenox 1 mg/kg (80 mg) 80 mg SUB-Q Administration Q12HR [facility] Famotidine 20 mg 03/07/18 10:00 03/16/18 09:50 Pepcid PO 20 mg QAM NANCIE Administration Furosemide 40 mg 03/14/18 18:00 03/16/18 06:08 Lasix IV 40 mg 0600,1800 NANCIE Administration Gabapentin 100 mg 03/07/18 00:39 03/15/18 22:03 Neurontin PO 100 mg HS [facility]PLACED BY [facility] Administration Hydralazine HCl 50 mg 03/11/18 22:00 03/16/18 06:08 Apresoline PO 50 mg Q8HR NANCIE Administration Hydromorphone HCl 0.5 mg 03/06/18 21:57 03/16/18 09:47 Dilaudid IV 0.5 mg Q3H PRN Administration Pain , Severe (7-10) Insulin Glargine 10 units 03/13/18 22:00 03/15/18 22:05 Lantus SUB-Q 10 units QHS NANCIE Administration Insulin Human Lispro 0 unit 03/07/18 07:30 03/16/18 09:33 Humalog SUB-Q Not Given ACHS NANCIE Protocol Isosorbide Mononitrate 30 mg 03/07/18 10:00 03/16/18 09:49 Imdur PO 30 mg DAILY NANCIE Administration Latanoprost 1 drops 03/07/18 22:00 03/15/18 22:06 Latanoprost 0.005% OU 1 drops HS NANCIE Administration Losartan Potassium 100 mg 03/07/18 10:00 03/16/18 09:48 Cozaar PO 100 mg QDAY NANCIE Administration Magnesium Oxide 400 mg 03/07/18 10:00 03/16/18 09:52 Mag-Ox PO 400 mg DAILY NANCIE Administration Miscellaneous Medication 1 drop 03/07/18 10:00 03/16/18 09:52 Alphagan P 0.1% OU 1 drop BID NANCIE Administration Montelukast Sodium 10 mg 03/07/18 18:00 03/15/18 17:10 Singulair PO 10 mg 1800 NANCIE Administration Ondansetron HCl 4 mg 03/06/18 21:57 Zofran IV Q8H PRN Nausea And Vomiting Potassium Chloride 20 meq 03/08/18 10:00 03/16/18 09:49 K-Dur PO 20 meq BID NANCIE Administration Sodium Chloride 10 ml 03/06/18 22:00 03/16/18 09:52 Sodium Chloride Flush Syringe 10 Ml IV 10 ml BID NANCIE Administration Sodium Chloride 10 ml 03/06/18 21:57 03/12/18 09:33 Sodium Chloride Flush Syringe 10 Ml IV 10 ml PRN PRN Administration LINE FLUSH Warfarin Sodium 5 mg 03/13/18 17:00 03/15/18 17:11 Coumadin PO 5 mg DAILY@1700 NANCIE Administration
--- NOTE | 2018-03-16 11:48 | Discharge Summary ---
Providers - Providers Date of Admission: 03/06/18 18:42 Attending physician: POORNIMA QUESADA MD 03/06/18 21:57 Consult to Physician [CONS] Routine Comment: Consulting Provider: TIANA WILDER Physician Instructions: Reason For Exam: CHF exacerbation 03/09/18 14:34 Consult to Physician [CONS] Routine Comment: Consulting Provider: JOEY HAYS Physician Instructions: Reason For Exam: sushma upon ckd 03/13/18 11:28 Consult to Cardiac Rehabilitation [CONS] Routine Reason For Exam: Cardiac Rehab Evaluation 03/16/18 07:00 Consult to Physician [CONS] Routine Comment: Consulting Provider: MATEO SCHAEFER Physician Instructions: Reason For Exam: sob Primary care physician: JUN DIAZ Hospitalization Condition: Fair Hospital course: 67-year-old woman presents with orthopnea, PND and shortness of breath. She was diagnosed with CHF, she was diuresis, her medications optimized. She had super supratherapeutic INR, warfarin was held and then restarted when INR was at goal Her meds were optimized for her chronic conditions, K was repleted She did have a bump in creatinine which improved after diuretics were held, the patient improved and diuretics were restarted Unfortunately her respiratory status continued to worsen, she is complaining of worsening shortness of breath and hypoxia. -Cardiac cath done on 03/13 shows severe pulmonary hypertension, no coronary obstruction per museum informatics specialist recommendation she was transferred to a higher level of care hospital for planned cardiac surgery Lifevest was placed on the patient during her hospital stay given her very low EF Diagnoses Acute on chronic systolic CHF, EF of 15% Chronic atrial fibrillation with hypercoagulable state Hypertensive urgency Hypokalemia Acute on chronic kidney disease, has CTD stage III at baseline Coagulopathy due to anticoagulants Disposition: DC/TX-02 SHRT-TRM GEN HOSP IP Time spent for discharge: 33 mins Core Measure Documentation - Palliative Care Palliative Care/ Comfort Measures: Not Applicable - Core Measures Any of the following diagnoses?: heart failure - Heart Failure Discharge Requirements PB/ARB for LVSD if EF <40%: Yes Beta radha at discharge: Yes Exam - Physical Exam Narrative exam: General.: moderate resp distress HEENT: Moist mucous membranes, extraocular muscles intact, no lymphadenopathy Neck: supple Cardiac: S1-S2 heard Lungs: crackles in bases Abdomen: soft , nontender, nondistended, bowel sounds positive Extremities: no edema clubbing or cyanosis Skin: no rash or lesions Neurologic: no gross focal deficits Psych: calm, and cooperative - Constitutional Vitals: Temp Pulse Resp BP Pulse Ox 98.0 F 75 20 120/76 94 03/16/18 08:33 03/16/18 09:50 03/16/18 09:47 03/16/18 09:50 03/16/18 08:33 Plan Follow up with: TIANA WILDER MD [Staff Physician] - 7 Days JOEY HAYS MD [Staff Physician] - 7 Days JUN DIAZ MD [Primary Care Provider] - 3-5 Days Forms: Warfarin Discharge Instruction Prescriptions: RX: Carvedilol [Coreg] 25 mg PO BID #60 tablet RX: Digoxin [Lanoxin] 0.25 mg PO DAILY@1700 #30 tablet RX: Furosemide [Lasix TAB] 40 mg PO QDAY #30 tablet RX: Gabapentin [Neurontin] 100 mg PO HS #30 capsule RX: glipiZIDE [Glucotrol] 10 mg PO QDDIAB #30 tablet RX: hydrALAZINE [Apresoline TAB] 50 mg PO Q8HR #90 tablet RX: ISOSORBIDE MONOnitrate [Imdur ER] 30 mg PO DAILY #30 tablet RX: Latanoprost 0.005% 1 drops OU HS #1 bottle RX: Losartan [Cozaar] 100 mg PO QDAY #30 tablet RX: Montelukast [Singulair] 10 mg PO 1800 #30 tablet oxyCODONE /ACETAMINOPHEN [Percocet 5/325] 1 tab PO Q6HR PRN #14 tablet PRN Reason: Pain RX: Potassium Chloride [K-Dur] 20 meq PO BID 30 Days tablet RX: Warfarin [Coumadin] 5 mg PO DAILY@1700 #30 tablet
--- NOTE | 2018-03-16 12:49 | Progress Note ---
Assessment and Plan Shortness of breath Acute renal failure Acute on chronic systolic heart failure Non-ischemic cardiomyopathy MPI this admission showing no ischemia LVEF 15-20% this admission Right and Left heart catheterization findings: 1. Moderate elevation of intracardiac filling pressures with a pulmonary wedge pressure of 20-25. 2. Severe pulmonary hypertension, with pulmonary artery systolic pressures of 85-90. 3. Mild nonobstructive coronary irregularities. 4. Nonischemic cardiomyopathy, left ventricular systolic ejection fraction 2 5%. Atrial fibrillation on warfarin for oral anticoagulation INR > 4 on presentation NSVT on telemetry -pt remained asymptomatic lifevest placed Recommendations: Advised sodium/fluid restriction. Continue medical therapy for nonischemic cardiomyopathy and persistent atrial fibrillation. No new cardiac recommendations Subjective Date of service: 03/16/18 Principal diagnosis: JJ, HFrEF Interval history: Stable chronic shortness of breath with mild exertion, no chest pain tele reviewed - rate controlled afib Objective Vital Signs Temp Pulse Pulse Resp Resp BP BP 03/16/18 12:34 67 20 03/16/18 12:24 58 L 18 03/16/18 11:55 98.2 F 63 20 121/77 03/16/18 09:50 75 120/76 03/16/18 09:49 75 120/76 03/16/18 09:48 75 120/76 03/16/18 09:47 20 03/16/18 08:33 98.0 F 75 20 120/76 03/16/18 08:25 82 20 03/16/18 08:15 80 18 03/16/18 04:00 97.8 F 75 16 126/64 03/15/18 23:40 98.0 F 76 12 126/64 03/15/18 23:00 03/15/18 21:51 89 123/62 03/15/18 20:58 87 16 03/15/18 20:45 03/15/18 20:44 80 16 03/15/18 20:08 94 H 03/15/18 19:35 98.3 F 103 H 16 122/56 03/15/18 17:10 99 H 03/15/18 16:49 70 18 125/69 03/15/18 16:48 98.2 F 03/15/18 13:24 95 H 19 03/15/18 13:23 93 H 18 Pulse Ox 03/16/18 12:34 03/16/18 12:24 03/16/18 11:55 98 03/16/18 09:50 03/16/18 09:49 03/16/18 09:48 03/16/18 09:47 03/16/18 08:33 94 03/16/18 08:25 03/16/18 08:15 96 03/16/18 04:00 92 03/15/18 23:40 88 03/15/18 23:00 93 03/15/18 21:51 97 03/15/18 20:58 03/15/18 20:45 98 03/15/18 20:44 03/15/18 20:08 03/15/18 19:35 91 03/15/18 17:10 03/15/18 16:49 100 03/15/18 16:48 03/15/18 13:24 03/15/18 13:23 - Physical Examination General: Other (mild respiratory distress) HEENT: Positive: PERRL Neck: Positive: trachea midline Cardiac: Positive: irregularly irregular Lungs: Positive: Decreased Breath Sounds Neuro: Positive: Grossly Intact Abdomen: Positive: Soft Skin: Positive: Clear Extremities: Absent: edema - Labs and Meds Coagulation 03/16/18 Range/Units 05:42 PT 17.7 H (12.2-14.9) Sec. INR 1.41 H (0.87-1.13) - Imaging and Cardiology EKG: report reviewed (A fib 68/min LVH )
--- NOTE | 2018-03-16 15:20 | Progress Note ---
Assessment and Plan Assessment and plan: Patient 67-year-old woman presents with orthopnea, PND and shortness of breath. Hospital course The patient has been diuresed, continued diuresis She was seen by cardiology, who agreed with the plan CHF EF 15%, meds been optimized by cardiology Atrial fibrillation on warfarin; continue rate control medications, -INR was supratherapeutic, therefore warfarin was held for several days, then was restarted when INR was at goal. -Blood pressure medications were optimized - K was repleted -Cr bumped up after lasix, therefore it was held x 2 days, cr improved, dw Dr Koo, lasix restarted now -has received lifevest -resp status worse today,cont milrinone drip -Cardiac cath done on 03/13 shows severe pulmonary hypertension, no coronary obstruction -repeat cxr today shows pulm edema, pulm consulted -will likely need home oxygen upon dc dw with her PCP at [facility] at [phone] Diagnoses Acute on chronic systolic CHF Atrial fibrillation with hypercoagulable state Coagulopathy due to warfarin Hypertension type 2 diabetes GERD Glaucoma Hypertensive urgency Hypokalemia JJ upon CKD stage 3/ vasomotor nephropathy Dc in 1-2 days History Interval history: Review of systems Constitutional: No fevers, no malaise, no joint pains CVS: Orthopnea is worse, c/o sob and YAÑEZ, and is hypoxic GI: No abdominal pain, no diarrhea, no vomiting, no constipation Respiratory: no wheezing, no coughing Hospitalist Physical - Physical exam Narrative exam: General.: moderate resp distress HEENT: Moist mucous membranes, extraocular muscles intact, no lymphadenopathy Neck: supple Cardiac: S1-S2 heard Lungs: crackles in bases Abdomen: soft , nontender, nondistended, bowel sounds positive Extremities: no edema clubbing or cyanosis Skin: no rash or lesions Neurologic: no gross focal deficits Psych: calm, and cooperative - Constitutional Vitals: Temp Pulse Resp BP Pulse Ox 98.2 F 67 20 121/77 98 03/16/18 11:55 03/16/18 14:50 03/16/18 14:51 03/16/18 14:50 03/16/18 11:55 General appearance: Present: no acute distress, well-nourished Results - Labs CBC & Chem 7: 03/13/18 05:46 03/15/18 05:26 Labs: Laboratory Last Values WBC 5.0 K/mm3 (4.5-11.0) 03/13/18 05:46 RBC 4.40 M/mm3 (3.65-5.03) 03/13/18 05:46 Hgb 10.7 gm/dl (10.1-14.3) 03/13/18 05:46 Hct 33.8 % (30.3-42.9) 03/13/18 05:46 MCV 77 fl (79-97) L 03/13/18 05:46 MCH 24 pg (28-32) L 03/13/18 05:46 MCHC 32 % (30-34) 03/13/18 05:46 RDW 17.8 % (13.2-15.2) H 03/13/18 05:46 Plt Count 211 K/mm3 (140-440) 03/13/18 05:46 Lymph % (Auto) 34.8 % (13.4-35.0) 03/07/18 05:35 [place] % (Auto) 12.8 % (0.0-7.3) H 03/07/18 05:35 Eos % (Auto) 1.7 % (0.0-4.3) 03/07/18 05:35 Baso % (Auto) 1.1 % (0.0-1.8) 03/07/18 05:35 Lymph # 1.8 K/mm3 (1.2-5.4) 03/07/18 05:35 [place] # 0.7 K/mm3 (0.0-0.8) 03/07/18 05:35 Eos # 0.1 K/mm3 (0.0-0.4) 03/07/18 05:35 Baso # 0.1 K/mm3 (0.0-0.1) 03/07/18 05:35 Seg Neutrophils % 49.6 % (40.0-70.0) 03/07/18 05:35 Seg Neutrophils # 2.5 K/mm3 (1.8-7.7) 03/07/18 05:35 PT 17.7 Sec. (12.2-14.9) H 03/16/18 05:42 INR 1.41 (0.87-1.13) H 03/16/18 05:42 Sodium 137 mmol/L (137-145) 03/15/18 05:26 Potassium 4.5 mmol/L (3.6-5.0) 03/15/18 05:26 Chloride 101.0 mmol/L (98-107) 03/15/18 05:26 Carbon Dioxide 24 mmol/L (22-30) 03/15/18 05:26 Anion Gap 17 mmol/L 03/15/18 05:26 BUN 22 mg/dL (7-17) H 03/15/18 05:26 Creatinine 1.4 mg/dL (0.7-1.2) H 03/15/18 05:26 Estimated GFR 45 ml/min 03/15/18 05:26 BUN/Creatinine Ratio 16 % 03/15/18 05:26 Glucose 148 mg/dL (65-100) H 03/15/18 05:26 POC Glucose 116 (70-105) H 03/16/18 05:43 Hemoglobin A1c 8.9 % (4-6) H 03/06/18 17:16 Calcium 9.2 mg/dL (8.4-10.2) 03/15/18 05:26 Magnesium 1.70 mg/dL (1.7-2.3) 03/06/18 17:16 Total Bilirubin 0.70 mg/dL (0.1-1.2) 03/07/18 05:35 AST 25 units/L (5-40) 03/07/18 05:35 ALT 30 units/L (7-56) 03/07/18 05:35 Alkaline Phosphatase 136 units/L (35-129) H 03/07/18 05:35 Troponin T < 0.010 ng/mL (0.00-0.029) 03/07/18 05:35 NT-Pro-B Natriuret Pep 29812 pg/mL (0-900) H 03/06/18 17:16 Total Protein 7.5 g/dL (6.3-8.2) 03/07/18 05:35 Albumin 3.8 g/dL (3.9-5) L 03/07/18 05:35 Albumin/Globulin Ratio 1.0 % 03/07/18 05:35 Urine Color Yellow (Yellow) 03/06/18 20:25 Urine Turbidity Clear (Clear) 03/06/18 20:25 Urine pH 6.0 (5.0-7.0) 03/06/18 20:25 Ur Specific [place] 1.005 (1.003-1.030) 03/06/18 20:25 Urine Protein 100 mg/dl mg/dL (Negative) 03/06/18 20:25 Urine Glucose (UA) Neg mg/dL (Negative) 03/06/18 20:25 Urine Ketones Neg mg/dL (Negative) 03/06/18 20:25 Urine Blood Neg (Negative) 03/06/18 20:25 Urine Nitrite Neg (Negative) 03/06/18 20:25 Urine Bilirubin Neg (Negative) 03/06/18 20:25 Urine Urobilinogen < 2.0 mg/dL (<2.0) 03/06/18 20:25 Ur Leukocyte Esterase Neg (Negative) 03/06/18 20:25 Urine WBC (Auto) 1.0 /HPF (0.0-6.0) 03/06/18 20:25 Urine RBC (Auto) 4.0 /HPF (0.0-6.0) 03/06/18 20:25 U Epithel Cells (Auto) 1.0 /HPF (0-13.0) 03/06/18 20:25 Nutrition/Malnutrition Assess - Dietary Evaluation Nutrition/Malnutrition Findings: Nutrition Notes Start: 03/07/18 15:17 Freq: Status: Active Protocol: Document 03/15/18 15:34 RM (Rec: 03/15/18 15:48 RM [id number]) Nutrition Notes Initial or Follow up Reassessment Current Diagnosis Acute Kidney Injury CKD(stage I-IV) Diabetes Hypertension Heart Failure Hyperlipidemia Current Diet Cardiac/Consistent CHO Labs/Tests Reviewed Pertinent Medications Lasix Height 5 ft 4 in Weight 81.4 kg [place] Body Weight (kg) 54.54 BMI 30.8 Subjective/Other Information Pt not in room at time of visit. Per pt tech pt eats most of her meals. Recorded PO intake 60% X 3 days. Percent of energy/protein needs met: 74%/93% #2 Nutrition Diagnosis Altered nutrition-related laboratory values Diagnosis Progress(for reassessment Continues documentation) #1 Nutrition Diagnosis Food and nutrition-related knowledge deficit As Evidenced by Signs and Symptoms pt received education Diagnosis Progress(for reassessment Resolved documentation) Is patient on ventilator? No Is Patient Ambulatory and/or Out of Bed No REE-([place]-confined to bed) [phone] Calculation Used for Recommendations [facility] Additional Notes FLUID: 1 mL/kcal PROTEIN: 0.8-1 G/KG/adjBW (54- 68 G/DAY) Nutrition Intervention Change Diet Order: Continue current Goal #1 Continue to meet at least 75% of calorie and protein needs Goal #2 Improved blood Glu control Follow-Up By: 03/19/18 Additional Comments Follow for stable intakes
[2018-03-16] MEDS: LANOXIN PO SCH (18:07)
[2018-03-16] MEDS: SINGULAIR PO SCH (18:07)
[2018-03-16 18:08] VITALS: BP 120/58
[2018-03-16] MEDS: COUMADIN PO SCH (18:08)
[2018-03-17] MEDS: DUONEB *Not for PRN Use IH SCH (09:59)
== END 2018-03-16 20:15 | disposition home health service (06) | DRG 286 ==
LOC: ED 16:23 → 4A 18:42
PROVIDERS: ADMIT Internal Medicine; ATTEND Internal Medicine
PROC: 4A023N8 Measurement of Cardiac Sampling and Pressure, Bilateral, Percutaneous Approach (ICD-10-PCS; principal; 2018-03-13)
PROC: B2111ZZ Fluoroscopy of Multiple Coronary Arteries using Low Osmolar Contrast (ICD-10-PCS; 2018-03-13)
PROC: B2151ZZ Fluoroscopy of Left Heart using Low Osmolar Contrast (ICD-10-PCS; 2018-03-13)
DX: I13.0 Hypertensive heart and chronic kidney disease with heart failure and stage 1 through stage 4 chronic kidney disease, or unspecified chronic kidney disease (principal); N17.0 Acute kidney failure with tubular necrosis; I50.23 Acute on chronic systolic (congestive) heart failure; D68.59 Other primary thrombophilia; D68.9 Coagulation defect, unspecified; I16.1 Hypertensive emergency; I47.1 Supraventricular tachycardia; I42.0 Dilated cardiomyopathy; I27.20 Pulmonary hypertension, unspecified; T45.515A Adverse effect of anticoagulants, initial encounter; K21.9 Gastro-esophageal reflux disease without esophagitis; H40.9 Unspecified glaucoma; E87.6 Hypokalemia; N18.3 Chronic kidney disease, stage 3 (moderate); E11.22 Type 2 diabetes mellitus with diabetic chronic kidney disease; R59.9 Enlarged lymph nodes, unspecified; M19.90 Unspecified osteoarthritis, unspecified site; I48.2 Chronic atrial fibrillation; E78.2 Mixed hyperlipidemia; M10.9 Gout, unspecified; Z79.01 Long term (current) use of anticoagulants; E11.40 Type 2 diabetes mellitus with diabetic neuropathy, unspecified; Y92.89 Other specified places as the place of occurrence of the external cause; Z79.899 Other long term (current) drug therapy; Z91.14 Patient's other noncompliance with medication regimen; Z86.73 Personal history of transient ischemic attack (TIA), and cerebral infarction without residual deficits
CPT/HCPCS: 36415; 71046; 78452; 80048; 80053; 81001; 82962; 83036; 83735; 83880; 84484; 85025; 85027; 85610; 93005; 93010; 93017; 93306; 93460; 94640; 94760; G0378; A9270-GY; A9502; C1760; C1894; J0360; J1160; J1170; J1644; J1650; J1815; J1940; J2250; J2260; J2405; J2785; J3010; J7040; Q9967